=== PATIENT | female | born 1970 | race Caucasian/White ===

== ENCOUNTER → 2021-05-14 09:51 | Outpatient (CLI) | payer BC, SELFPAY ==
--- NOTE | 2021-05-14 | EMB_PTH ---
PATIENT: ALISA CORONEL LOC: [facility] U#:[id number] AGE/SX: 54/F ROOM: RE05/14/[address]: Dr. Guzman Bray MD : 1970 BED: DIS: SPEC #: [id number] RECD: 05/14/21 11:37 STATUS: PARTHA EYAL #: [id number] JENNIFER: 05/14/21 00:[address]: Guzman Bray DEPT: SURGICAL PATHOLOGY RECD BY: Dorita Cates Tissues: Endometrium, NOS Procedures: Surgery Specimen Level IV HEADER OPERATION: Endometrial biopsy PRE-OP DIAGNOSIS: DUB N92.5 TISSUE SUBMITTED: Endometrial biopsy MICROSCOPIC DIAGNOSIS Endometrial biopsy: Early secretory endometrium. VERONICA:kayla 05/15/2021 MICROSCOPIC DESCRIPTION Slides are reviewed. GROSS DESCRIPTION Received in fixative is one container labeled with the patient's name and designated endometrial biopsy. The specimen consists of multiple irregular fragments of lu hemorrhagic soft tissue that in aggregate measure 2 x 2 x 0.2 cm. The specimen is totally submitted in one cassette. / SJ:rg 05/14/21 TC:4 CPT: 16457
[2021-05-14 10:44] LABS: Hematocrit 40.4 % (37-47); Hemoglobin 12.6 g/dL (12.0-15.0); Mean Corp Hgb Conc 31.2 g/dL (32-36); Mean Corpuscular Volume 86.7 fL (81-99); Mean Platelet Vol. 10.9 fl (6.2-12.0); Platelet Count 339 K/mm3 (150-450); RBC Distribution Width CV 14.2 % (11.6-14.6); RBC Distribution Width SD 44.8 fl (35.1-43.9); Red Blood Count 4.66 M/mm3 (4.2-5.4); White Blood Count 8.9 K/mm3 (4.4-11.0)
[2021-05-14 11:30] LABS: Anion Gap 7 (5-15); BUN 11 mg/dL (7-18); BUN/Creat Ratio 15.1 RATIO (10-20); Chloride 108 mmol/L (98-107); Creatinine, Serum 0.73 mg/dL (0.55-1.02); EST Glomerular Filtration Rate 90 mL/min (>60); Est Glom Filt Rate - Afr Amer 109 mL/min (>60); Estradiol 112.1 pg/mL; Follicle Stimulating Hormone 3.6 mIU/mL; Glucose 93 mg/dL (74-106); Potassium 3.9 mmol/L (3.5-5.1); Prolactin 15.8 ng/mL; Sodium Level 140 mmol/L (136-145); T4 Free Direct 0.84 ng/dL (0.76-1.46)
[2021-05-17 10:27] LABS: HPV APTIMA, High Risk Negative (Negative)
== END ==
PROVIDERS: Visit Provider Obstetrics & Gynecology
DX: Z12.4 Encounter for screening for malignant neoplasm of cervix (principal); N92.5 Other specified irregular menstruation; N93.9 Abnormal uterine and vaginal bleeding, unspecified
CPT/HCPCS: 36415; 80048; 82670; 83001; 83002; 84146; 84439; 84443; 85027; 87624; 88175; 88305; G0145

== ENCOUNTER → 2021-05-27 15:51 | Outpatient (CLI) | payer BC, SELFPAY ==
--- NOTE | 2021-05-27 15:54 | BI_ITS ---
MAMMOGRAPHY - BILATERAL SCREENING REASON FOR EXAM: Female, 50 years old. Routine annual screening examination. PERTINENT HISTORY: Non-contributory. TECHNIQUE: Digital bilateral breast jena (3D mammographic acquisition) in the CC and MLO projections. 2-D mediolateral oblique (MLO) and craniocaudad (CC) views of both breasts were obtained. CAD: Full Field Digital Mammography with Computer Added Detection was performed. COMPARISON: None. Baseline examination. FINDINGS: Breast Composition: The breasts are heterogeneously dense, which may obscure small masses. There are no dominant masses or suspicious calcifications. There are small benign-appearing bilateral axillary lymph nodes. No other significant abnormalities are identified. BI/SCRN MAMM (CAD)W/EJNA BILAT IMPRESSION: Negative screening mammogram. Yearly followup mammogram recommended. (A) ASSESSMENT CATEGORY: BIRADS Category 2: Benign. A letter regarding these results will be sent to the patient by the facility within 30 days. Approximately 10% of breast cancers are not detected by mammography. A normal mammogram should not delay biopsy of a clinically suspicious abnormality. [id number] Electronically Signed: Jovan Mcdonnell MD at 8:25 EDT , Service support ,
== END ==
PROVIDERS: Referring Provider Obstetrics & Gynecology; Visit Provider Obstetrics & Gynecology
DX: Z12.31 Encounter for screening mammogram for malignant neoplasm of breast (principal)
CPT/HCPCS: 77063; 77067

== ENCOUNTER → 2021-08-19 08:24 | Outpatient (CLI) | payer BC, SELFPAY ==
[2021-08-19 11:00] LABS: Cholesterol 141 mg/dL (200); Free T3 2.5 pg/mL (2.18-3.98); High Density Lipoprotein 60 mg/dL; T4 Free Direct 1.12 ng/dL (0.76-1.46); Thyroid Stim Hormone (TSH) 3.99 uIU/mL (0.358-3.74); Triglycerides 79 mg/dL; Very Low Density Lipoprotein 16 mg/dL (5-40)
== END ==
PROVIDERS: PCP Family Medicine; Referring Provider Family Medicine; Visit Provider Family Medicine
DX: E03.8 Other specified hypothyroidism (principal); Z13.220 Encounter for screening for lipoid disorders
CPT/HCPCS: 36415; 80061; 84439; 84443; 84481

== ENCOUNTER 2021-10-22 08:52 | Outpatient (CLI) | payer BC, SELFPAY ==
[2021-10-22 10:31] LABS: T4 Free Direct 1.27 ng/dL (0.76-1.46); Thyroid Stim Hormone (TSH) 2.95 uIU/mL (0.358-3.74)
== END 2021-10-22 23:59 | disposition short-term general hospital (02) ==
LOC: MTLAB 08:53
PROVIDERS: PCP Family Medicine; Referring Provider Family Medicine; Visit Provider Family Medicine
DX: E03.9 Hypothyroidism, unspecified (principal)
CPT/HCPCS: 36415; 84439; 84443

== ENCOUNTER → 2022-04-22 | Outpatient (CLI) | payer OTHER, SELFPAY ==
[2022-04-22 10:27] LABS: Anion Gap 5 (5-15); BUN 16 mg/dL (7-18); BUN/Creat Ratio 20.3 RATIO (10-20); Calcium,Total 8.7 mg/dL (8.5-10.1); Chloride 108 mmol/L (98-107); Cholesterol 180 mg/dL (200); Creatinine, Serum 0.79 mg/dL (0.55-1.02); EST Glomerular Filtration Rate 82 mL/min (>60); Est Glom Filt Rate - Afr Amer 99 mL/min (>60); Glucose 90 mg/dL (74-106); High Density Lipoprotein 64 mg/dL; Potassium 3.9 mmol/L (3.5-5.1); Sodium Level 139 mmol/L (136-145); T4 Free Direct 1.19 ng/dL (0.76-1.46); Thyroid Stim Hormone (TSH) 4.69 uIU/mL (0.358-3.74); Triglycerides 130 mg/dL; Very Low Density Lipoprotein 26 mg/dL (5-40)
== END | disposition home or self-care (01) ==
LOC: MTLAB 08:53
PROVIDERS: PCP Family Medicine; Referring Provider Family Medicine; Visit Provider Family Medicine
DX: E03.9 Hypothyroidism, unspecified (principal); Z13.1 Encounter for screening for diabetes mellitus; Z13.220 Encounter for screening for lipoid disorders
CPT/HCPCS: 36415; 80048; 80061; 84439; 84443

== ENCOUNTER → 2022-09-08 | Outpatient (CLI) | payer OTHER, SELFPAY ==
--- NOTE | 2022-09-08 16:10 | BI_ITS ---
MAMMOGRAPHY - BILATERAL SCREENING REASON FOR EXAM: Female, 51 years old. Routine annual screening examination. PERTINENT HISTORY: Non-contributory. TECHNIQUE: Digital bilateral breast jena (3D mammographic acquisition) in the CC and MLO projections. 2-D mediolateral oblique (MLO) and craniocaudad (CC) views of both breasts were obtained. CAD: Full Field Digital Mammography with Computer Added Detection was performed. COMPARISON: 05/27/2021. FINDINGS: Breast Composition: The breasts are heterogeneously dense, which may obscure small masses. There are no dominant masses or suspicious calcifications. Stable benign-appearing small bilateral axillary lymph nodes. No other significant abnormalities are identified. There has been no significant change since the prior study. BI/SCRN MAMM (CAD)W/JENA BILAT IMPRESSION: Stable bilateral screening mammogram. Yearly follow-up mammogram recommended. (A) ASSESSMENT CATEGORY: BIRADS Category 2: Benign. A letter regarding these results will be sent to the patient by the facility within 30 days. Approximately 10% of breast cancers are not detected by mammography. A normal mammogram should not delay biopsy of a clinically suspicious abnormality. Electronically Signed: Arron Vaca, at 16:29 EST ,
== END | disposition home or self-care (01) ==
LOC: OPBI 16:08
PROVIDERS: PCP Family Medicine; Visit Provider Family Medicine
DX: Z12.31 Encounter for screening mammogram for malignant neoplasm of breast (principal)
CPT/HCPCS: 77063; 77067

== ENCOUNTER → 2022-10-15 | Outpatient (CLI) | payer OTHER, SELFPAY ==
[2022-10-15 10:53] LABS: Thyroid Stim Hormone (TSH) 2.14 uIU/mL (0.358-3.74)
== END | disposition home or self-care (01) ==
LOC: MTLAB 08:45
PROVIDERS: PCP Family Medicine; Referring Provider Family Medicine; Visit Provider Family Medicine
DX: E03.9 Hypothyroidism, unspecified (principal)
CPT/HCPCS: 36415; 84439; 84443

== ENCOUNTER 2022-12-22 06:49 | Day surgery (SDC) | payer OTHER, SELFPAY ==
--- NOTE | 2022-12-22 07:09 | HP.PCM_ITS ---
HPI - General General Date of Admission: 12/22/22 HPI Narrative ALISA CORONEL, is a 52 F who presents for screening colonoscopy. Patient never had previous colonoscopy. Patient denies any family history of colon cancer. Patient has bowel moods daily denies any blood. Patient denies any chronic abdominal pain/nausea/vomiting. Patient occasionally has reflux with tomato sauce products and takes Tums for that. [facility] Medical History (Updated 12/17/22 @ 14:02 by Dayan Kwan) Heartburn Hypothyroid Non-smoker Thyroid disease Wears contact lenses Home Medications levothyroxine 75 mcg capsule 88 mcg PO DAILY 09/08/22 [History Last Taken Unknown] Allergy/AdvReac Type Severity Reaction Status Date / Time No Known Allergies Allergy Verified 12/22/22 07:09 Family History (Updated 09/08/22 @ 11:13 by Shanta Vazquez) Mother Uterine cancer Hypertension Kidney disease Father Hypertension Surgical History (Updated 12/17/22 @ 14:02 by Dayan Kwan) No significant past surgical history Social History (Updated 09/08/22 @ 11:14 by Shanta Vazquez) household members: spouse current occupational status: employed 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 Smoking Status: Never smoker alcohol intake: never Past Medical/Surgical History Planned Operation Planned Operative Procedure/s: COLONOSCOPY Previous Hospitalizations/Surgeries HX Hospitalizations: No Any Problems With Anesthesia: No You/Your Family Experience Fever (Hyperthermia) With Anes: No Cholinesterase deficiency: No Cardiovascular Hx Hypertension: No Respiratory Hx Sleep Apnea: No Hx Respiratory Tract Infection/Cold (presently): No Do You Snore Loudly (louder than talking or can be heard): No Do You Often Feel Tired/ Fatigued/ Sleepy Dring Daytime?: No Has Anyone Observed You Stop Breathing During Sleep?: No Result (for STOP score): Negative Smoking Status: Never smoker Neurological Does patient have nerve stimulator: No Reproduction : No Allergies No Known Allergies Allergy (Verified 12/22/22 07:09) Discharge Is Pt Admitted From a [facility], or a Jail: No Who Could Help: -TRUPTI After D/C, Where Do you Plan to Go: Return Home Physical Exam Const alert, oriented x3 and no apparent distress HEENT normocephalic and head/scalp atraumatic Resp normal respiratory effort Cardio regular rate GI soft to palpation and non-tender; Negative for non-distended Palpation: Negative for guarding Extremity no clubbing, cyanosis or edema Neuro CN's II-XII intact bilaterally Psych mental status grossly normal Assessment & Plan Assessment/Plan (1) Encounter for screening for malignant neoplasm of colon: Surgery Risks - Colonoscopy Risks Include but are not Limited To: Risks include but are not limited to: Bleeding, perforation requiring further surgery, inability to complete colonoscopy requiring barium enema.
[2022-12-22 07:21] VITALS: BP 142/95; PULSE 90; RESP 17; TEMP 36.7; O2SAT 95; BMI 41.5
[2022-12-22 07:21] LABS: Internal QC Validated? YES +Cl - CLEAR BKGD; Pregnancy, Urine Negative Negative
[2022-12-22] MEDS: Lactated Ringers 1,000 ML 15 ML IV (07:21)
[2022-12-22 08:55] VITALS: BP 115/73; BP 142/95; PULSE 71; RESP 17; TEMP 36.5; O2SAT 95
[2022-12-22 09:00] VITALS: BP 142/95; BP 99/62; PULSE 65; RESP 16; O2SAT 95
[2022-12-22 09:05] VITALS: BP 142/95; BP 99/70; PULSE 80; RESP 16; O2SAT 98
[2022-12-22 09:10] VITALS: BP 107/71; BP 142/95; PULSE 63; RESP 16; TEMP 36.4; O2SAT 100
[2022-12-22 09:19] VITALS: BP 142/95
--- NOTE | 2022-12-22 09:47 | OP.COLON_ITS ---
Patient Name: Agustina Moreno Procedure Date: 12/22/2022 8:27 AM Date of : 1970 Age: 52 Procedure: Colonoscopy Indications: Screening for colorectal malignant neoplasm Providers: Ayesha Landry MD Referring MD: Ayesha aLndry MD Medicines: Monitored Anesthesia Care Patient Profile: This is a 52 year old female. Last Colonoscopy: none. The patient's first colonoscopy is today. Complications: No immediate complications. Procedure: Pre-Anesthesia Assessment: - Prior to the procedure, a History and Physical was performed, and patient medications and allergies were reviewed. The patient's tolerance of previous anesthesia was also reviewed. The risks and benefits of the procedure and the sedation options and risks were discussed with the patient. All questions were answered, and informed consent was obtained. Prior Anticoagulants: The patient has taken no previous anticoagulant or antiplatelet agents. ASA Grade Assessment: Per anesthesia. After reviewing the risks and benefits, the patient was deemed in satisfactory condition to undergo the procedure. After I obtained informed consent, the scope was passed under direct vision. Throughout the procedure, the patient's blood pressure, pulse, and oxygen saturations were monitored continuously. The pediatric colonoscope was introduced through the anus and advanced to the cecum, identified by appendiceal orifice and ileocecal valve. The colonoscopy was performed without difficulty. The patient tolerated the procedure well. The quality of the bowel preparation was good. Scope In: 8:30:20 AM Scope Withdrawal Time 0 hours 6 minutes 6 seconds Scope Out: 8:49:47 AM Total Procedure Duration Time 0 hours 19 minutes 27 seconds Findings: The perianal and digital rectal examinations were normal. The entire examined colon appeared normal on direct and retroflexion views. Impression: - The entire examined colon is normal on direct and retroflexion views. - No specimens collected. Recommendation: - Discharge patient to home. - Resume previous diet. - Continue present medications. - Repeat colonoscopy in 10 years for screening purposes. Procedure Code(s): --- Professional --- G0121, PT, Colorectal cancer screening; colonoscopy on individual not meeting criteria for high risk Diagnosis Code(s): --- Professional --- Z12.11, Encounter for screening for malignant neoplasm of colon CPT copyright 2017 [employer]. All rights reserved. The codes documented in this report are preliminary and upon nail professional review may be revised to meet current compliance requirements. MD Ayesha Zhou MD 12/22/2022 9:46:43 AM This report has been signed electronically. Number of Addenda: 0 Note Initiated On: 12/22/2022 8:27 AM
--- NOTE | 2022-12-22 09:48 | OP.CCLET_ITS ---
12/22/2022 Abran Baltazar [address] [place] [address] Re : Colonoscopy procedure for Agustina Moreno Dear Dr. Baltazar This procedure was performed on Thursday, December 22, 2022. My impressions and recommendations are as follows: Impressions : - The entire examined colon is normal on direct and retroflexion views. - No specimens collected. Recommendations : - Discharge patient to home. - Resume previous diet. - Continue present medications. - Repeat colonoscopy in 10 years for screening purposes. My findings are described in the full procedure note, which is enclosed. If I can be of further assistance, please feel free to contact me at Doctor phone number(s): , Work: . Sincerely, MD Ayesha Zhou MD 12/22/2022 9:46:43 AM This report has been signed electronically.
== END 2022-12-22 09:31 | disposition home or self-care (01) ==
LOC: EN 06:54 → AC 06:55
PROVIDERS: Anesthesiology; PCP Family Medicine; Referring Provider Family Medicine; Visit Provider Surgery
PROC: 0DJD8ZZ Inspection of Lower Intestinal Tract, Via Natural or Artificial Opening Endoscopic (ICD-10-PCS; CPT 45378; principal; 2022-12-22 08:10)
DX: Z12.11 Encounter for screening for malignant neoplasm of colon (principal); E03.9 Hypothyroidism, unspecified
CPT/HCPCS: 45378; 81025; J7120; J2405

== ENCOUNTER → 2023-04-28 | Outpatient (CLI) | payer OTHER, SELFPAY ==
[2023-04-28 11:31] LABS: T4 Free Direct 1.33 ng/dL (0.76-1.46); Thyroid Stim Hormone (TSH) 3.79 uIU/mL (0.358-3.74)
== END | disposition home or self-care (01) ==
LOC: MTLAB 08:52
PROVIDERS: PCP Family Medicine; Referring Provider Family Medicine; Visit Provider Family Medicine
DX: E03.9 Hypothyroidism, unspecified (principal)
CPT/HCPCS: 36415; 84439; 84443

== ENCOUNTER 2023-06-08 09:00 | Day surgery (SDC) | payer OTHER, SELFPAY ==
[2023-06-02 13:21] LABS: Hematocrit 42.9 % (37-47); Hemoglobin 13.5 g/dL (12.0-15.0); Mean Corp Hgb Conc 31.5 g/dL (32-36); Mean Corpuscular Hgb 27.7 pg (27.0-32.0); Mean Corpuscular Volume 87.9 fL (81-99); Mean Platelet Vol. 11.4 fl (6.2-12.0); Platelet Count 343 K/mm3 (150-450); RBC Distribution Width CV 14.7 % (11.6-14.6); RBC Distribution Width SD 47.4 fl (35.1-43.9); Red Blood Count 4.88 M/mm3 (4.2-5.4); White Blood Count 8.5 K/mm3 (4.4-11.0)
[2023-06-08] VITALS (8 sets, daily range): BP systolic 124–135; BP diastolic 80–85; PULSE 62–84; RESP 16–18; TEMP 36.4–37.1; O2SAT 94–100; BMI 41.8
[2023-06-08] MEDS: Lactated Ringers 1,000 ML 15 ML IV (09:41)
[2023-06-08 09:49] LABS: Internal QC Validated? YES +Cl - CLEAR BKGD; Pregnancy, Urine Negative Negative
--- NOTE | 2023-06-08 10:23 | PCM.HP.BLA ---
History and Physical Date of Admission: 06/08/23 Chief complaint: Abnormal uterine bleeding History of present illness: 52-year-old with abnormal uterine bleeding elects for hysteroscopy, dilation curettage. No medical changes since last seen. All questions answered and consent signed. Obstetric history: with a history of 2 vaginal deliveries Past medical history: Hypothyroid Medications: Synthroid, Ortho Micronor Allergies: No known drug allergies Past surgical history: None Family history: Denies history DVT or PE Social history: Denies smoking, alcohol use, drug use Review of systems: Besides above pertinent positives a full review of systems was performed and found to be negative Physical exam: Vitals: Blood pressure 135/84 pulse 84 respiratory rate 16 temperature 98.8 ?F SPO2 99% on room air General: Normal-appearing no acute distress HEENT: Normocephalic/atraumatic no cervical lymphadenopathy Cardiac/respiratory: No use accessory muscles, nonlabored breathing Abdomen: Soft, nontender, nondistended Extremities: No peripheral edema normal peripheral pulses Psych: Normal affect and remainder nonpressured speech Labs: Urine test negative Assessment and plan: 52-year-old with abnormal uterine bleeding elects for hysteroscopy, dilation curettage. Patient understands risk of the procedure include but are not limited to visceral or vascular injury, prolonged hospitalization, blood loss need for transfusion, reoperation. Patient state understanding wish to proceed. All questions were answered and consent was signed
--- NOTE | 2023-06-08 10:45 | EMB_PTH ---
PATIENT: ALISA CORONEL LOC: [facility] [place] U#:[id number] AGE/SX: 52/F ROOM: RE06/08/[address]: Dr. Guzman Bray MD : 1970 BED: DIS: 06/08/2023 SPEC #: [id number] RECD: 06/08/23 12:59 STATUS: PARTHA BIRCH #: [id number] JENNIFER: 06/08/23 10:[address]: Guzman Bray DEPT: SURGICAL PATHOLOGY RECD BY: Dorita Cates ENTERED: 06/08/23 13:27 SP TYPE: ENDOM BX/C ERIK DR: Dr. Clive Baltazar MD Tissues: Endometrium, NOS Procedures: Surgery Specimen Level IV HEADER OPERATION: Hysteroscopy, dilation and curettage PRE-OP DIAGNOSIS: Abnormal uterine bleeding TISSUE SUBMITTED: Endometrial curettings MICROSCOPIC DIAGNOSIS Endometrium, curettings: Polypoid fragment of weakly proliferative to inactive endometrium with simple cystic hyperplasia without atypia. Mild chronic endometritis. AM:kayla 06/09/2023 MICROSCOPIC DESCRIPTION Slides are reviewed. GROSS DESCRIPTION Received in fixative is one container labeled with the patient's name and designated endometrial curettings. The specimen consists of multiple irregular and mucoid fragments of red-lu soft tissue that in aggregate measure 2.2 x 1.7 x 0.1 cm. The specimen is totally submitted in one cassette. / AM:kayla 06/08/2023 TC:5 CPT: 31753
--- NOTE | 2023-06-08 12:45 | DCINST_ITS ---
Discharge Instructions Diet Discharge Diet: No restrictions Activity Discharge Activity: Return to Normal Activity, May Drive and May Shower May resume sexual activity in: 6-8 weeks Weight Bearing Status: Weight bearing as tolerated Dressing / Incision Call your doctor if your incision/area has: Continuous Slow Oozing and Foul Smelling Discharge Call your doctor if you observe: Fever of 101 or Higher, Shortness of breath and Chest pain Follow Up Care Please Follow Up With: Guzman Bray MD When: 2 weeks postoperatively Test Results: Test results from this visit will be discussed in further detail at your follow- up appointment, if applicable. Discharge Plan Admission Attending Provider: Guzman Bray Primary Care Provider: Abran Baltazar Discharge Orders/Prescriptions Prescriptions: No Action levothyroxine 75 mcg capsule 88 mcg PO DAILY norethindrone (contraceptive) 0.35 mg tablet 0.35 mg PO DAILY Patient Comments: TAKE 1 TABLET BY MOUTH EVERY DAY Referrals / Follow Up: Abran Baltazar MD [Primary Care Provider] - Disposition Disposition (needs filled in before D/C Order can be placed): Home, Self Care
--- NOTE | 2023-06-08 12:45 | PCM.OPRPT ---
Report of Operation Date of Procedure: 06/08/23 Pre-Operative Diagnosis: Abnormal uterine bleeding Post-Operative Diagnosis: Abnormal uterine bleeding Surgery/Procedure Performed:: Hysteroscopy, dilation curettage Description of Surgical Findings:: Surgeon: Guzman Bray MD Anesthesia: MAC EBL: 5 cc Urine output: 50 cc IV fluids: 500 cc Complications: None Specimen: Endometrial curettings Findings: Hysteroscopy with no pathology noted. Consent: Patient with abnormal uterine bleeding elects for hysteroscopy, dilation curettage. Patient understands risk of the procedure include but are not limited to visceral or vascular injury, prolonged hospitalization, blood loss need for transfusion, reoperation. Patient state understanding and wished to proceed. All questions were answered and consent was signed. Procedure: Patient was brought back to the OR where MAC anesthesia was found to be adequate. Patient was prepared and draped in a dorsolithotomy position with yellowfin stirrups. A weighted speculum is placed in the posterior aspect of the vagina and cervical dilators were used dilate the cervix. Hysteroscope was inserted and above findings were noted. Sharp endometrial curettage was performed and all quadrants and sent to pathology. Good hemostasis was noted. All counts were correct x2. Patient tolerated the procedure well and was brought to recovery in a stable condition.
== END 2023-06-08 14:02 | disposition home or self-care (01) ==
LOC: SDC 09:03 → AC 09:09
PROVIDERS: Anesthesiology; PCP Family Medicine; Referring Provider Obstetrics & Gynecology; Visit Provider Obstetrics & Gynecology
PROC: 0UDB8ZZ Extraction of Endometrium, Via Natural or Artificial Opening Endoscopic (ICD-10-PCS; CPT 58558; principal; 2023-06-08 10:35)
DX: N85.01 Benign endometrial hyperplasia (principal); N93.9 Abnormal uterine and vaginal bleeding, unspecified; E03.9 Hypothyroidism, unspecified; Z79.890 Hormone replacement therapy
CPT/HCPCS: 58558; 00952; 36415; 81025; 85027; 86850; 86900; 86901; 88305; J7120; J2405

== ENCOUNTER → 2023-09-09 | Outpatient (CLI) | payer OTHER, SELFPAY ==
--- NOTE | 2023-09-09 08:38 | BI_ITS ---
MAMMOGRAPHY - BILATERAL SCREENING REASON FOR EXAM: Female, 52 years old. Routine annual screening examination. PERTINENT HISTORY: Non-contributory. TECHNIQUE: Digital bilateral breast jena (3D mammographic acquisition) in the CC and MLO projections. 2-D mediolateral oblique (MLO) and craniocaudad (CC) views of both breasts were obtained. CAD: Full Field Digital Mammography with Computer Added Detection was performed. COMPARISON: Comparison is made with prior study September 08, 2022 and May 27, 2021. FINDINGS: Breast Composition: The breasts are heterogeneously dense, which may obscure small masses. There are no dominant masses or suspicious calcifications. Stable benign-appearing right axillary lymph nodes. No other significant abnormalities are identified. There has been no significant change since the prior study. BI/SCRN MAMM (CAD)W/JENA BILAT IMPRESSION: Stable bilateral screening mammogram. Yearly follow-up mammogram recommended. (A) ASSESSMENT CATEGORY: BIRADS Category 2: Benign. A letter regarding these results will be sent to the patient by the facility within 30 days. Approximately 10% of breast cancers are not detected by mammography. A normal mammogram should not delay biopsy of a clinically suspicious abnormality. [id number] Electronically Signed: Jovan Mcdonnell MD at 14:27 EST ,
== END | disposition home or self-care (01) ==
LOC: OPBI 08:36
PROVIDERS: PCP Family Medicine; Referring Provider Family Medicine; Visit Provider Family Medicine
DX: Z12.31 Encounter for screening mammogram for malignant neoplasm of breast (principal)
CPT/HCPCS: 77063; 77067

== ENCOUNTER → 2023-11-03 | Outpatient (CLI) | payer OTHER, SELFPAY ==
--- OUTSIDE RECORDS SUMMARY | 2023-11-03 09:29 | XMS RPT_ITS | CCD ---
Author Name Unknown Address [address] [place] [address] [id number] [place] [address] Organization [facility] Care Team Providers Care Salesperson Shoes Name Role Phone Unavailable Primary Care Provider JANICE Neil Attending Unavailable Medications Current Medications Medication Drug Class(es) Dates Sig (Normalized) Sig (Original) norethindrone acetate 5 mg oral tablet (1 source) Start: 08-20-2023 End: 02-16-2024 take 1 tablet by mouth once daily norethindrone (AYGESTIN) 5 mg tablet Take 1 tablet by mouth once daily. 90 tablet 1 08/20/2023 02/16/2024 Active Completed/Discontinued Medications Medication Drug Class(es) Dates Sig (Normalized) Sig (Original) levothyroxine sodium 0.088 mg oral tablet (1 source) l-Thyroxine take 1 tablet by mouth once daily before breakfast levothyroxine (SYNTHROID) 88 mcg tablet Take 88 mcg by mouth daily before breakfast. 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 Work Phone: OB/Gynecology Plan of Treatment Date Care Activity Detail Author Start: 04-29-2032 Urine microalbumin profile DTa P,Tdap,Td Vaccine (2 - Td or Tdap) [facility] Start: 05-14-2026 HPV Testing HPV Testing [facility] Start: 05-14-2026 Pap Testing Pap Testing [facility] Start: 06-19-2023 Covid-19 Vaccine ( season) Covid-19 Vaccine () [facility] Start: 06-19-2023 Influenza vaccination Influenza Vacc ine (#1) [facility] Start: 10-19-2022 Depression Assessment Depression Ass essment [facility] Start: 05-27-2022 Mammography Mammogram Screening [facility] Start: 2015 Cologuard (FIT-DNA) Cologuard (FIT-D NA) [facility] Start: 2015 Colonoscopy Colonoscopy [facility] Start: 2015 Colorectal Cancer Screening Colorectal Cancer Screening [facility] Start: [address] Colonography [facility] Start: 2015 Diabetes Screening Diabetes Screenin g [facility] Start: 2015 Fecal Occult Blood Fecal Occult Bloo d [facility] Start: 2015 Lipid 1996 panel - S dev or Plasma Lipid Screening [facility] Start: 2015 Sigmoidoscopy Sigmoidoscopy [facility] Start: 1988 Hepatitis C Screening Hepatitis C Sc reening [facility] Start: 1988 HIV Screening HIV Screening [facility] Start: 1970 Hepatitis B Vaccine (1 of 3 - 3-dose series) Hepatitis B Vaccine (1 of 3 - 3-dose series) [facility] Payers Date Payer Category Payer Private Health Insurance [employer] A ETNA POS [id number] 2021-Present [phone] [address] [place] [address] POS [id number] 2021 Private Health Insurance [id number] Social History Date Type Detail Facility Start: 08-20-2023 Tobacco smoking stat us SDIS Never smoked tobacco [facility] Start: 08-20-2023 Tobacco use and exposure Smoke less tobacco non-user [facility] Start: 08-20-2023 Alcohol intake Lifetime non-d enmanuel (finding) [facility] Start: 08-20-2023 History of Social function [facility] Start: 08-20-2023 Tobacco use panel [facility] National Score (1-10 0), lower number is lower risk 83 [facility] Start: 1970 Sex Assigned At Not on file [facility] Note 09-01-2023 Telephone Encounter - Emily Salgado RN - 09/01/2023 4:28 PM ESTTelephone Encounter - Latonya Grant RN - 09/01/2023 2:00 PM ESTTelephone Encounter - Janice Andres APRN.CNP - 09/01/2023 1:54 PM EST Note Date & Type Note Facility 09-01-2023 Miscellaneous Notes Formattin g of this note might be different from the original. Patient notified. Emily Salgado RN Left message for patient to return phone call She can increase the 2 pills daily. Janice Andres APRN.ANNE Pt calling and stated that she was started on Norethindrone on 08/20/23. She had bleeding on the first week of the medication. Bleeding stopped on 08/28/23 until yesterday 08/31/23. She reports she is having spotting now that is pink in color with mild cramping. Pt wanting to know how to proceed from this point. Please advise. Laura Wills LPN documented in this encounter [facility] Progress note 08-20-2023 Note Date & Type Note Facility 08-20-2023 Note HNO ID: [id number] Author: Janice Andres APRN.CNP Service: ? Author Type: Nurse Practitioner Type: Progress Notes Filed: 08/20/2023 12:41 PM Note Text: Overhead Door Technician offered: Patient declines. Agustina Moreno is a 52 year old female who presents to est care, transfer from [facility]. HPI: Pt had a Hysteroscopy in May 2023 and has been taking Megace since. For the month of Jul she has had daily light bleeding. Results:Polypoid fragment of weakly proliferative to inactive endometrium with simple hyperplasia without endometritis, mild chronic endometritis. 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 done at [facility] PAST SURGICAL HISTORY OF 06/08/2023 hysteroscopy DANDC at [facility] per Dr Bray FAMILY HISTORY Problem Relation Age of Onset other (neoplasm of uterus) Mother Kidney Disease Mother Hypertension Mother Mental illness Mother Prostate Cancer Father Hypertension Father other (muscular disorder) Father Thyroid Sister Depression Sister Suicide / Suicidal Behaviors Brother Depression Brother Heart disease Maternal Grandfather Stroke Maternal Grandfather Heart Attack Paternal Grandfather Social History Tobacco Use Smoking status: Never Smokeless tobacco: Never Vaping Use Vaping Use: Never used Substance Use Topics Alcohol use: Never Drug use: Never Current Outpatient Medications Medication Sig levothyroxine (SYNTHROID) 88 mcg tablet Take 88 mcg by mouth daily before breakfast. megestrol (MEGACE) 400 mg/10 mL (40 mg/mL) suspension Take 40 mg by mouth once daily. No current facility-administered medications for this visit. Allergies As of Date: 08/20/2023 (No Known Allergies) Fully Assessed 08/20/2023 REVIEW OF SYSTEMS Abdomen: No bloating, early satiety, indigestion, or increased flatulence. No abdominal pain, nausea, vomiting, diarrhea, or constipation. +cramping Expanded ROS: N/A Allergies and current medication updated:Yes EXAM: BP 134/68 Ht 5' 4 (1.63m) Wt 242 lb 9.6 oz (110.0kg) LMP 05/21/2023 BMI 41.62 kg/(m2). GENERAL: pleasant, female in no apparent distress HEENT: Normocephalic, atraumatic, mucus membranes moist, and no lesions CHEST: Normal inspiratory effort NEURO: alert and oriented x3,exam grossly non-focal EXTREMITIES: normal ASSESSMENT/PLAN: 1. Endometrial hyperplasia without atypia - ICD9: [id number], ICD10: N85.00 - ENDOMETRIAL BIOPSY Discussed Mirena IUD for management of the hyperplasia, pt would like to avoid that option. Aygestin 5 mg daily ordered, stop the Megace Schedule for EMB in Nov Janice Andres APRN.ANNE Medical Decision Making: Problems: Low: Stable chronic illness Risk: Low: Low risk from testing/treatment Moderate: Drug management Medical Decision Making Level: 3 - Low [facility] Summary Purpose Family History No Family History Records Found Advance Directives No Advanced Directives Records Found Additional Source Comments Source Comments (unrecognize d section and content) In the event this informatio n is protected by the Federal Confidentiality of Alcohol and Drug Abuse Patient Records regulations: The Federal rules restrict any use of the information to criminally investigate or prosecute any alcohol or drug abuse patient.[facility] Reason for Visit (unrecogniz ed section and content) INFORMATION SOURCE (unrecogn ized section and content) FOR RECORDS PERTAINING TO PATIENTS WHO ARE OR HAVE BEEN ENROLLED IN A CHEMICAL DEPENDENCY/SUBSTANCEABUSE PROGRAM, SOME INFORMATION MAY BE OMITTED. This clinical summary was aggregated from multiple sources. Caution should be exercised in using it in the provision of clinical care. This summary normalizes information from multiple sources, and as a consequence, information in this document may materially change the coding, format and clinical context of patient data. In addition, data may be omitted in some cases. CLINICAL DECISIONS SHOULD BE BASED ON THE PRIMARY CLINICAL RECORDS. [facility]. provides no warranty or guarantee of the accuracy or completeness of information in this document.
[2023-11-03 10:39] LABS: Free T3 2.5 pg/mL (2.18-3.98); T4 Free Direct 1.34 ng/dL (0.76-1.46); Thyroid Stim Hormone (TSH) 2.83 uIU/mL (0.358-3.74)
== END | disposition home or self-care (01) ==
LOC: MTLAB 09:01
PROVIDERS: PCP Family Medicine; Referring Provider Family Medicine; Visit Provider Family Medicine
DX: E03.9 Hypothyroidism, unspecified (principal)
CPT/HCPCS: 36415; 84439; 84443; 84481

== ENCOUNTER 2024-02-11 07:54 | Inpatient (IN) | payer OTHER, SELFPAY ==
--- NOTE | 2024-02-02 08:52 | EKG12_ITS ---
Test Reason : PREOP Blood Pressure : / mmHG Vent. Rate : 081 BPM Atrial Rate : 081 BPM P-R Int : 138 ms QRS Dur : 082 ms QT Int : 362 ms P-R-T Axes : 063 048 007 degrees QTc Int : 420 ms Normal sinus rhythm Nonspecific T wave abnormality Abnormal ECG Confirmed by SILVA LADD, ANTHONY ([id number]), photograph editor ANDREZ POWELL ([id number]) on 02/03/2024 6:49:12 AM Referred By: BIJAN GREENFIELD Confirmed By:ANTHONY ASCENCIO MD
[2024-02-02 10:21] LABS: Hemoglobin 14.7 g/dL (12.0-15.0); Mean Corpuscular Hgb 27.8 pg (27.0-32.0); Mean Corpuscular Volume 87.1 fL (81-99); Mean Platelet Vol. 11.3 fl (6.2-12.0); Platelet Count 385 K/mm3 (150-450); RBC Distribution Width CV 15.6 % (11.6-14.6); RBC Distribution Width SD 49.2 fl (35.1-43.9); Red Blood Count 5.28 M/mm3 (4.2-5.4); White Blood Count 8.7 K/mm3 (4.4-11.0)
[2024-02-02 10:47] LABS: Anion Gap 4 (5-15); BUN 11 mg/dL (7-18); BUN/Creat Ratio 10.3 RATIO (10-20); Calcium,Total 8.7 mg/dL (8.5-10.1); Chloride 109 mmol/L (98-107); Creatinine, Serum 1.07 mg/dL (0.55-1.02); EST Glomerular Filtration Rate 57 mL/min (>60); Est Glom Filt Rate - Afr Amer 69 mL/min (>60); Glucose 90 mg/dL (74-106); Magnesium 2.1 mg/dL (1.6-2.6); Potassium 3.7 mmol/L (3.5-5.1); Sodium Level 141 mmol/L (136-145)
[2024-02-02 11:00] LABS: Thyroid Stim Hormone (TSH) 4.68 uIU/mL (0.358-3.74)
--- NOTE | 2024-02-04 13:10 | PCM.HP.BLA ---
History and Physical Date of Admission: 02/11/24 Pre-Op History and Physical ? HPI: The patient is a 53 year old female presenting for discussion regarding surgical intervention for AUB, fibroid uterus and endometrial hyperplasia. Pt currently on Aygestin to control bleeding- has h/o endometrial hyperplasia and large fibroids. Pt feeling pelvic pressure and pain- and has consistent bleeding. Pt would like surgical intervention. Pt declines consults with MIGS and understands there is small risk of malignancy with final pathology which could result in need for secondary surgery. ? pre-operative visit. She is scheduled for ALICE with BSO, for AUB, fibroid uterus, Endometrial hyperplasia on 02/11/24. Procedure discussed along with risks, benefits and complications. Other alternatives discussed for management. Consent form signed? Yes. ? ? PAST MEDICAL HISTORY PAST MEDICAL HISTORY Diagnosis Date ? Abnormal uterine bleeding (AUB) ? ? Hyperplasia of endometrium determined by biopsy ? ? Hypothyroidism ? ? ? PAST SURGICAL HISTORY PAST SURGICAL HISTORY Procedure Laterality Date ? COLONOSCOPY SCREENING ? 12/22/2022 ? WNL repeat in 10Yrs. done at [facility] ? PAST SURGICAL HISTORY OF ? 06/08/2023 ? hysteroscopy D&C at [facility] per Dr Bray ? ? ? CURRENT MEDICATIONS Current Outpatient Medications Medication Sig Dispense Refill ? norethindrone (AYGESTIN) 5 mg tablet Take 2 tablets by mouth once daily. 180 tablet 1 ? levothyroxine (SYNTHROID) 88 mcg tablet Take 88 mcg by mouth daily before breakfast. ? ? ? No current facility-administered medications for this visit. ? ? ALLERGIES: Patient has no known allergies. ? PERSONAL HISTORY: SOCIAL HISTORY Social History ? Tobacco Use ? Smoking status: Never ? Smokeless tobacco: Never Vaping Use ? Vaping Use: Never used Substance Use Topics ? Alcohol use: Never ? Drug use: Never ? FAMILY HISTORY: FAMILY HISTORY FAMILY HISTORY Problem Relation Age of Onset ? other (neoplasm of uterus) Mother ? ? Kidney Disease Mother ? ? Hypertension Mother ? ? Mental illness Mother ? ? Prostate Cancer Father ? ? Hypertension Father ? ? other (muscular disorder) Father ? ? Thyroid Sister ? ? Depression Sister ? ? Suicide / Suicidal Behaviors Brother ? ? Depression Brother ? ? Heart disease Maternal Grandfather ? ? Stroke Maternal Grandfather ? ? Heart Attack Paternal Grandfather ? ? ? REVIEW OF SYMPTOMS: negative except as noted above PHYSICAL EXAMINATION: ? VITALS: Blood pressure 138/86, height 5' 4 (1.626 m), weight 249 lb (112.9 kg), last menstrual period 05/21/2023. ? GENERAL: The patient is well nourished, well hydrated in no acute distress. , The patient is oriented to time, place, and person. NECK: full range of motion LUNGS: Clear to auscultation bilaterally. no wheezes, rhonchi or rales HEART: Regular rate and rhythm, Normal heart sounds, and No murmurs or gallops ? IMPRESSION: 53yo female with large fibroid uterus, endometrial hyperplasia on progesterone, AUB ? PLAN: ALICE, BSO ? Pt has been counseled on risks/benefits and alternatives of surgery including but not limited to anesthesia, bleeding, infection, injury to pelvic structures including bowel, bladder, ureters and vessels. Pt wishes to proceed with surgery at this time. Pt counseled on retention of ovaries- declines and would like removal at time of surgery. We reviewed surgical menopause and implications for HRT if desired. Risk of blood transfusion reviewed. ? Pre and post op instructions reviewed ? I have reviewed and updated past medical and surgical history, medications and allergies Mitzi Diamond MD Office Visit on 01/26/2024 Office Visit on 01/26/2024 Note shared with patient Additional Documentation Vitals: BP 138/86 Ht 5' 4 (1.626 m) Wt 249 lb (112.9 kg) LMP 05/21/2023 BMI 42.74 kg/m? BSA 2.26 m? Flowsheets: Patient-Reported Data, [facility] PDMP [employer] SCORES, Vital Signs Encounter Info: Billing Info, History, Allergies, Detailed Report
[2024-02-11] VITALS (15 sets, daily range): BP systolic 114–154; BP diastolic 66–91; PULSE 71–99; RESP 16–18; TEMP 36.3–37.4; O2SAT 94–100; BMI 42.6
[2024-02-11 08:30] LABS: Internal QC Validated? YES +Cl - CLEAR BKGD; Record Kit Lot#,Urine Preg HCG0000718089
[2024-02-11 08:34] LABS: Pregnancy, Urine Negative Negative
[2024-02-11] MEDS: dexAMETHasone 4 MG/ML Vial 8 MG IV (08:39)
[2024-02-11] MEDS: Magnesium 1 GM over 15 mins IV (08:43)
[2024-02-11] MEDS: Phenazopyridine 95 MG Tablet 190 MG PO (08:45)
[2024-02-11] MEDS: Acetaminophen 500 MG Tablet 1000 MG PO ×3 (08:46→23:48)
[2024-02-11] MEDS: Celecoxib 200 MG Capsule 400 MG PO (08:46)
[2024-02-11] MEDS: Enoxaparin 40 MG/0.4 ML Syringe SC (08:47)
[2024-02-11] MEDS: Gabapentin 600 MG Tablet PO (08:47)
[2024-02-11] MEDS: Scopolamine 1mg/72hr Patch 1 PATCH TD (08:48)
[2024-02-11] MEDS: Lactated Ringers 1,000 ML 40 ML IV (08:49)
[2024-02-11 09:27] LABS: Bedside Glucose 120 mg/dL (74-106)
--- NOTE | 2024-02-11 10:10 | HYST_PTH ---
PATIENT: ALISA CORONEL LOC: MS3 U#:[id number] AGE/SX: 53/F ROOM: [facility] RE02/11/[address]: Dr. Mitzi Blanco, MDDOB: 1970 BED: 1 DIS: 02/12/2024 SPEC #: [id number] RECD: 02/11/24 13:34 STATUS: PARTHA BIRCH #: [id number] JENNIFER: 02/11/24 10:[address]: Mitzi Blanco DEPT: SURGICAL PATHOLOGY RECD BY: Santos Mariscal ENTERED: 02/11/24 14:01 SP TYPE: HYSTERECT OTHR DR: Dr. Clive Baltazar MD Tissues: Uterus, NOS Procedures: Surgery Specimen Level V HEADER OPERATION: ERAS, hysterectomy, ALICE, bilateral salpingectomy- oophorectomy PRE-OP DIAGNOSIS: Abnormal uterine bleeding, fibroid uterus, endometrial hyperplasia TISSUE SUBMITTED: Uterus, cervix, bilateral fallopian tubes, bilateral ovaries MICROSCOPIC DIAGNOSIS Uterus, cervix, bilateral fallopian tubes and bilateral ovaries, hysterectomy and salpingectomy- oophorectomy: Cervix - No pathologic diagnosis. Endometrium - Consistent with exogenous hormone effects. - Negative for hyperplasia. Myometrium - Diffused adenomyosis. - Intramural and subserosal leiomyomas (largest measuring 2.5cm in greatest dimension) Bilateral fallopian tubes- No pathologic diagnosis. One ovary- Not pathologic diagnosis. Second ovary- Simple benign epithelial cyst (0.5cm in greatest dimension). VERONICA/ 02/12/24 COMMENT Ectocervical epithelium is not seen the sections of the cervix examined. MICROSCOPIC DESCRIPTION Slides are reviewed. GROSS DESCRIPTION Received in fixative is one container labeled with the patient's name and designated uterus, cervix, bilateral fallopian tubes and ovaries. The specimen consists of a hysterectomy specimen consisting of uterus, cervix and detached bilateral fallopian tubes and ovaries. The uterus with cervix weighs 760 gm and measures 17.0 x 15.0 x 10.0 cm. The serosal surface is lu glistening. A few subserosal nodules are noted. The ectocervical mucosa is only present focally. The external os is circular in contour. The endocervical canal measures 4.0 cm in length and the endocervical mucosa is lu glistening and unremarkable. Triangular endometrial cavity measures 7.0cm in length and up to 5.0cm width. The endometrium is lu glistening without any mass lesions and measures up to 0.2cm in thickness. Sections of the uterine wall reveal multiple nodules with intramural and subserosal location. The largest mass measures 2.5cm in greatest dimension. Sections of these masses reveal lu whorled cut surfaces without areas of hemorrhage, necrosis or cystic degeneration. Section of the uterine wall reveal diffusely thickened and trabeculated cut surfaces, suspicious for adenomyosis and measures up to 6.0cm in thickness. Fallopian tubes and ovaries are not identified as right or left. One of the fallopian tubes measures 3.5cm in length and 0.7cm in diameter. Fimbrial end is identified. Sections reveal unremarkable cut surfaces. Adjacent ovary measures 2.5 x 1.5 x 1.0cm. Sections reveal unremarkable cut surfaces. Second fallopian tube is similar appearance to the first one and measures 4.5cm in length and 0.5cm in diameter. Adjacent second ovary measures 2.5 x 1.5 x 1.0cm. Sections reveal a cyst filled with clear fluid measuring 0.5cm in greatest dimension. Academic Coach sections are submitted in 15 cassettes as follows: 1 - anterior cervix, 2 - posterior cervix, 3 -7 - anterior uterine wall, 8-10 - posterior uterine wall (almost entire endometrium is submitted), 11- Largest nodular mass, 12- smaller intramural and subserosal nodular masses, 13- one fallopian tube and ovary, 14-15- Second fallopian tube and adjacent ovary (14- fallopian tube and ovary, 15- more section second ovary) VERONICA: 02/11/24 TC:5 CPT: 94637
[2024-02-11] MEDS: Cefazolin 2 GM in 0.9% Normal Saline (100mL Bag) 100 ML IV (10:30)
[2024-02-11] MEDS: Bupivacaine 0.25% 30 ML Vial (11:15)
[2024-02-11] MEDS: Ondansetron 4 MG/2 ML Vial IV (12:12)
--- NOTE | 2024-02-11 12:25 | PCM.OPRPT ---
Report of Operation Date of Procedure: 02/11/24 Pre-Operative Diagnosis: AUB, Fibroid uterus, endometrial Hyperplasia Post-Operative Diagnosis: Same, urethral laceration Surgery/Procedure Performed:: ALICE, BSO, cysto Description of Surgical Findings:: Enlarged Fibroid uterus, 18 week size, normal tubes and ovaries Surgeon: Mitzi Diamond program manager environmental planning: Nieves Suh Type of Anesthesia: General and Local Special Medications: 0.5% marcaine, hemoblast Specimen's removed: uterus, Cervix, bilateral fallopian tubes and ovaries Drains: curiel Estimated Blood Loss (mL): 50 Fluids Replaced: 1500cc Description of Procedure: After informed consent was obtained the patient was taken the operating room she was placed in the supine position. Curiel catheter was placed under sterile technique see notation below under complication. Abdominal and vaginal preps were performed. Patient was draped in the normal sterile fashion. At this time Pfannenstiel incision was made carried down to the underlying layer of the fascia. Fascia was then grasped with 2 straight Meron clamps in the inferior aspect the rectus muscle dissected off sharply. This was then turned to superior aspect of the fascial edge was again grasped with 2 Meron clamps tented up and the rectus muscle dissected off sharply. At this time the rectus muscles were midline bluntly. Peritoneum was entered bluntly. At this time the uterus was palpated shifted more to the right approximately 18 week size uterus at this time the skin incision was extended to allow delivery of the uterus through the incision. The uterus was brought up through the incision. Nikhil retractor placed. Round ligaments on either side were clamped Ligasure used to incise and divide broad ligament. Ligasure was used to clamp the IP ligament on Left. The visualization on right was poor- so Uteroovarian ligament clamped and sealed and ligated with ligasure. the bladder flap was taken down. Next both uterine arteries on right and left were skeletonized with Metzenbaum scissor and clamped, sealed and ligated with ligasure. This was continued down until the cervical vaginal junction. At this time Sandra's were placed just below the cervix. Specimen was dissected off using Jerome scissors. Specimen was removed and sent to pathology for evaluation. At this time the cuff was suture transfixed using 0 Vicryl. Multiple [id number] sutures then placed in the midline. Good hemostasis was appreciated. At this time further evaluation of the left IP ligament was performed. The right Ovary and tube were grasped with Vadim and the IP ligament was sealed and ligated with ligasure. Irrigation of pelvis performed. At this time hemoblast was placed over the cuff and bilateral pedicles. At this time then all laps were removed count was correct. The Peritoneum was grasped with Mima. The peritoneum was reapproximated using #2 Vicryl suture in a running fashion. Next the fascia was reapproximated using #1 PDS in a running fashion. The subcutaneous layer was irrigated and closed using 2 -0 vicryl suture. And the skin was closed using 3-0 Monocryl on a David needle. At this time once closure was complete dressing was applied. The patient was redraped and prepped for cystoscopy. Was placed in the [facility]. The Curiel catheter was removed. Please see urology note for dictation. vaginal sweep negative. instrument and lap count correct x 2. vaginal packing placed by Urology 26 persian catheter placed- will remove tomorrow morning. Grafts/Implants Used: none Procedure Start Time: 11:25 Procedure Stop Time: 12:59 Complications Prior to start of procedure nursing placed curiel during vaginal prep it inadvertently got dislodge and bleeding from urethra was noted. - urology was made aware- 24 persian catheter was placed. 2 sponges for pressure placed in vagina during case betadine. 3-0 rapdie suture placed on tiny laceration noted superior and adjacent to urethra. After case was complete sponges were removed from vagina and active brisk bleeding was noted around cathter coming from urethra- Urology DR. Schulte was called for formal evaluation. Admit VTE Documentation VTE Present on Admission: Yes VTE Mechan Device Prophylaxis: SCD's VTE Pharm Prophylaxis ordered?: Yes
--- NOTE | 2024-02-11 13:07 | PCM.OPRPT ---
Report of Operation Date of Procedure: 02/11/24 Pre-Operative Diagnosis: Urethral trauma Post-Operative Diagnosis: Same Surgery/Procedure Performed:: Cystourethroscopy Surgeon: Gavi Schulte Type of Anesthesia: General Description of Procedure: The patient is a 53-year-old female who was being prepped for a hysterectomy when the urethral Austin was inserted and blood began pouring out around the catheter. During the procedure, a larger Austin catheter was inserted and vaginal packing was placed. At the conclusion of the case, the packing was removed and the bleeding continued from around the Austin catheter. I was called for further evaluation and management. The patient was in dorsolithotomy position and was prepped and draped in usual sterile fashion. There was a stitch at the 12 o'clock position of the urethral meatus. There was slow oozing from the urethra. The cystoscope was inserted through the urethra under direct visualization into the urinary bladder. Using the 70 degree lens, the entire bladder was visualized finding no evidence of mass, erythema, ulceration, trauma or foreign body. The 12 degree lens was then used for visualization of the urethra. Austin trauma was identified on the patient's right side of the urethra approximately 1 centimeter distal to the bladder neck. There was no other abnormality identified. At this time the cystoscope was removed and a 26 Austin catheter was placed to straight drain. Packing was reinserted into the vagina. The patient was then awakened and taken to the recovery room in good condition. There were no complications during the procedure. Grafts/Implants Used: None Complications None Admit VTE Documentation VTE Present on Admission: Yes VTE Mechan Device Prophylaxis: SCD's VTE Pharm Prophylaxis ordered?: No Reason prophylaxis not ordered:: Treatment Not Indicated
[2024-02-11] MEDS: Lactated Ringers @ 70 MLS/HR 70 ML IV (13:35)
[2024-02-11] MEDS: SimETHICONE 80 MG Chewable Tablet PO (18:32)
--- NOTE | 2024-02-11 18:38 | NURSING ---
Stood pt at bedside and pt began to have blood running down her leg. Pt was cleaned multiple times but blood was still flowing. SCD's and socks also changed.
[2024-02-11] MEDS: Docusate Sodium 100 MG Capsule PO (22:01)
[2024-02-11] MEDS: Ketorolac 30 MG/ML Syringe IV (22:01)
[2024-02-12] MEDS: Lactated Ringers @ 70 MLS/HR 70 ML IV (01:54)
[2024-02-12 03:45] VITALS: BP 133/78; PULSE 71; RESP 16; TEMP 36.6; O2SAT 97
[2024-02-12] MEDS: Ketorolac 30 MG/ML Syringe IV ×3 (05:53→21:26)
[2024-02-12] MEDS: Acetaminophen 500 MG Tablet 1000 MG PO ×3 (05:55→17:44)
[2024-02-12 06:01] LABS: Hemoglobin 13.6 g/dL (12.0-15.0); Mean Corp Hgb Conc 31.6 g/dL (32-36); Mean Corpuscular Hgb 27.7 pg (27.0-32.0); Mean Corpuscular Volume 87.6 fL (81-99); Mean Platelet Vol. 11.2 fl (6.2-12.0); Platelet Count 373 K/mm3 (150-450); RBC Distribution Width CV 15.4 % (11.6-14.6); RBC Distribution Width SD 49.3 fl (35.1-43.9); Red Blood Count 4.91 M/mm3 (4.2-5.4); White Blood Count 16.1 K/mm3 (4.4-11.0)
[2024-02-12 06:48] LABS: Anion Gap 5 (5-15); BUN 8 mg/dL (7-18); BUN/Creat Ratio 7.8 RATIO (10-20); Calcium,Total 7.9 mg/dL (8.5-10.1); Chloride 109 mmol/L (98-107); Creatinine, Serum 1.03 mg/dL (0.55-1.02); EST Glomerular Filtration Rate 60 mL/min (>60); Est Glom Filt Rate - Afr Amer 72 mL/min (>60); Estimated Creatinine Clearance 77.64 ml/min; Glucose 113 mg/dL (74-106); Potassium 4.1 mmol/L (3.5-5.1); Sodium Level 139 mmol/L (136-145)
[2024-02-12 07:07] VITALS: O2SAT 97
[2024-02-12] MEDS: SimETHICONE 80 MG Chewable Tablet PO ×2 (07:34→11:53)
[2024-02-12] MEDS: Docusate Sodium 100 MG Capsule PO ×2 (07:34→21:25)
[2024-02-12] MEDS: Ensure Plus High Protein 120 ML LIQUID PO (07:34)
--- NOTE | 2024-02-12 08:47 | PN.OBGYN_ITS ---
Subjective Subjective Patient is doing well this morning. Pain is well-controlled. She has only standing at the side of the bed but has vaginal bleeding when she stands up so she has not ambulated since surgery. The Austin is still in place. She is tolerating her diet without nausea or vomiting. She denies chest pain, shortness of breath, lightheadedness, dizziness, leg pain. She has not yet passed gas. Objective Data Objective Data Vital Signs: Vital Signs Temp Pulse Resp BP Pulse Ox O2 Del Method O2 Flow Rate 98 F 71 16 133/78 H 97 Room Air 4 02/12/24 03:45 02/12/24 03:45 02/12/24 03:45 02/12/24 03:45 02/12/24 07:07 02/12/24 07:07 02/11/24 14:45 Oxygen Flow Rate (L/min) 4 Oxygen Delivery Method Room Air Weight: 248 lb 3.848 oz Body Mass Index (BMI) 42.6 Intake & Output: Intake and Output for Last 24 Hours 02/10/24 02/11/24 02/12/24 23:59 23:59 23:59 Intake Total 1212 / 1212 862.17 / 862.17 Output Total 950 / 1850 1550 / 1550 Balance 262 / -638 -687.83 / -687.83 Lab / Micro Data 02/12/24 05:15 02/12/24 05:15 Labs: Laboratory Results - last 24 hr 02/11/24 08:55: POC Glucose 120 H 02/12/24 05:15: WBC 16.1 H, RBC 4.91, Hgb 13.6, Hct 43.0, MCV 87.6, MCH 27.7, MCHC 31.6 L, RDW Std Deviation 49.3 H, RDW Coeff of Susanna 15.4 H, Plt Count 373, MPV 11.2, Sodium 139, Potassium 4.1, Chloride 109 H, Carbon Dioxide 25.0, Anion Gap 5, BUN 8, Creatinine 1.03 H, Estim Creat Clear Calc 77.64, Est GFR (MDRD) Af Amer 72, Est GFR (MDRD) Non-Af 60, BUN/Creatinine Ratio 7.8 L, Glucose 113 H, Calcium 7.9 L Physical Exam Const alert and no apparent distress General Appearance: comfortable HEENT normocephalic Resp normal respiratory effort GI soft to palpation and non-distended GI Narrative: ATTP, dressing c/d/i, non acute Narrative: Austin catheter and vaginal packing in place. Pad with about a 4x5 cm area of bright red blood present at the front of her pad. Blood is present around ca theter and a slow trickle of red blood is noted coming from the urethral opening. Assessment & Plan (1) S/P hysterectomy: PLAN: Patient is postop day 1 from a total abdominal hysterectomy. She is doing well this morning but does note bleeding overnight and this morning. Bleeding is noted on exam coming from the urethral opening around the Austin catheter. Will call urology prior to removing vaginal packing and Austin catheter, and prior to discharge today.
--- NOTE | 2024-02-12 08:53 | DCINST_ITS ---
Discharge Instructions Diet Discharge Diet: No restrictions Activity Discharge Activity: May Not Drive and May Shower May resume sexual activity in: 6 weeks (nothing in the vagina for 6 weeks) Ice area for (Minutes): 15 Weight Bearing Status: Weight bearing as tolerated Lifting Restrictions: nothing greater than 10 pounds Dressing / Incision Call your doctor if your incision/area has: Continuous Slow Oozing, Sudden Increased Bleeding, Increased Pain/ Swelling, Increased Redness, Foul Smelling Discharge and Swelling at the incision site Call your doctor if you observe: Fever of 101 or Higher, Coldness, Increased Pain, Numbness or Tingling, Change in Color, Inability to urinate, Inability to have a bowel movement, Using more than 1 pad per hour, Shortness of breath, Dizziness, Fainting spells, Swelling in the ankles, Chest pain, Prolonged hiccupping, Increased palpitations (irregular heartbeat), Calf discomfort and Uncontrolled pain Suture Line Care: Avoid Pulling/Pushing and Avoid Pinching/Bending Remove Dressing in: 2 days Cleanse incision/area with: Soap & Water Follow Up Care Please Follow Up With: Mitzi Diamond MD When: 1-2 weeks 6 weeks Test Results: Test results from this visit will be discussed in further detail at your follow- up appointment, if applicable. Discharge Plan Admission Admit Date/Time: 02/11/24 07:54 Attending Provider: Mitzi Diamond Primary Care Provider: Clive Baltazar Instructions Patient Instructions: Abdominal Hysterectomy Dc Discharge Orders/Prescriptions Prescriptions: Continued levothyroxine 75 mcg capsule 88 mcg PO DAILY Discontinued norethindrone (contraceptive) 0.35 mg tablet 5 mg PO BID Patient Comments: TAKE 1 TABLET BY MOUTH EVERY DAY Other Ambulatory Orders: 12 Lead EKG (Routine) Timeframe: [id number] Location: None Selected Ordered By: Dr. Mitzi Diamond Referrals / Follow Up: Clive Baltazar MD [Primary Care Provider] - Disposition Disposition (needs filled in before D/C Order can be placed): Home, Self Care
--- NOTE | 2024-02-12 09:15 | PHA.DC.MR.R ---
Pharmacy [place] Med Reconciliation Pharmacy Service has performed discharge medication reconciliation for this patient. The patient's discharge medication list was reviewed for discrepancies and discrepancies were resolved. Medications at Discharge Home Medications levothyroxine 75 mcg capsule 88 mcg PO DAILY THYROID 09/08/22
--- NOTE | 2024-02-12 09:21 | CASEMGMT ---
CHEYENNE OROZCO Assessment: Face to Face with pt for initial transition planning/care coordination assessment. CHEYENNE OROZCO introduced self and role at [facility], pt voices understanding and consents to assessment. Pt. laying in bed in no distress. Pt is A&O x4 and answers all questions appropriately at this time. Care providers, pharmacy, and demographics verified/updated. Admitting Dx: [facility] PCP:Giovanny Specialists:BJ Diamond; [facility] Preferred Pharmacy: [facility] Insurance: [employer] Prescription Benefit: yes LNOK: [place] - Living Arrangements: Pt lives with in a split level home with 2 steps into main entrance with hand rails. Pt reports she is independt with ADL's, is able to assist if needed. Pt denies concerns at home. Transportation: Pt drives self and denies concerns with transportation. will transport until able to drive again. DME: Pt denies having any DME equipment at home. HHC/SNF: Pt denies Hx. Pt states no concerns with going home at time of dc. Pt states no further concerns/needs. CM to follow. Advised pt to ask CM if any further question/concerns/needs arise, voices understanding. Pt Goal: Home no needs. Plan: Home Madalyn QUINN CM
[2024-02-12 12:00] VITALS: BP 125/72; PULSE 70; RESP 15; TEMP 36.7; O2SAT 98
[2024-02-12] MEDS: 0.9% Saline Lock 10 ML Syringe IV (13:26)
[2024-02-12 16:00] VITALS: BP 128/72; PULSE 74; RESP 15; TEMP 36.8; O2SAT 99
--- NOTE | 2024-02-12 17:06 | PCM.PN.GU ---
Subjective Subjective She was still bleeding from urethra this morning, and at noon I adjusted the packing with curiel out. She did not have blood during that time. No other issues. Urine clear. Objective Data Objective Data Vital Signs: Vital Signs Temp Pulse Resp BP Pulse Ox O2 Del Method O2 Flow Rate 98.3 F 74 15 128/72 H 99 Room Air 4 02/12/24 16:00 02/12/24 16:00 02/12/24 16:00 02/12/24 16:00 02/12/24 16:00 02/12/24 16:00 02/11/24 14:45 Oxygen Flow Rate (L/min) 4 Oxygen Delivery Method Room Air Weight: 112.6 kg Body Mass Index (BMI) 42.6 Intake & Output: Intake and Output for Last 24 Hours 02/10/24 02/11/24 02/12/24 23:59 23:59 23:59 Intake Total 1212 / 1212 1660.17 / 1660.17 Output Total 950 / 1850 2750 / 2750 Balance 262 / -638 -1089.83 / -1089.83 Lab / Micro Data 02/12/24 05:15 02/12/24 05:15 Labs: Laboratory Results - last 24 hr 02/12/24 05:15: WBC 16.1 H, RBC 4.91, Hgb 13.6, Hct 43.0, MCV 87.6, MCH 27.7, MCHC 31.6 L, RDW Std Deviation 49.3 H, RDW Coeff of Susanna 15.4 H, Plt Count 373, MPV 11.2, Sodium 139, Potassium 4.1, Chloride 109 H, Carbon Dioxide 25.0, Anion Gap 5, BUN 8, Creatinine 1.03 H, Estim Creat Clear Calc 77.64, Est GFR (MDRD) Af Amer 72, Est GFR (MDRD) Non-Af 60, BUN/Creatinine Ratio 7.8 L, Glucose 113 H, Calcium 7.9 L Physical Exam Narrative packing removed, she ambulated around the room, and no further bleeding. Assessment & Plan Assessment/Plan (1) Urethral laceration: PLAN: Plan ok to eat, void and go home from standpoint. call if issues.
[2024-02-12 19:45] VITALS: BP 127/74; PULSE 76; RESP 15; TEMP 36.7; O2SAT 100
[2024-02-12 21:30] VITALS: BP 157/90; PULSE 65; RESP 15; TEMP 36.6; O2SAT 97
--- NOTE | 2024-02-12 21:43 | NURSING ---
dr feldman paged and updated as ordered with pt's ability to urinate approx 150 cc straw colored urine without vaginal bleeding while ambulating. dr feldman ok for pt to discharge home at this time
--- NOTE | 2024-02-12 22:52 | NURSING ---
2120: D/C INSTRUCTIONS REVIEWED WITH PATIENT, DENIES ANY QUESTIONS OR CONCERNS AND FEELS READY TO GO HOME. IV DC'D. HS MEDS GIVEN.
== END 2024-02-12 22:49 | disposition home or self-care (01) | DRG 671 ==
LOC: ACINP 07:56 → MS3 15:22
PROVIDERS: Anesthesiology; Admitting Provider Obstetrics & Gynecology; PCP Family Medicine; Referring Provider Obstetrics & Gynecology; Visit Provider Obstetrics & Gynecology
PROC: 0UT90ZZ Resection of Uterus, Open Approach (ICD-10-PCS; CPT 58150; principal; 2024-02-11 09:50)
DX: T83.091A Other mechanical complication of indwelling urethral catheter, initial encounter (principal); S37.33XA Laceration of urethra, initial encounter; T83.021A Displacement of indwelling urethral catheter, initial encounter; D25.9 Leiomyoma of uterus, unspecified; Y92.234 Operating room of hospital as the place of occurrence of the external cause; Y73.8 Miscellaneous gastroenterology and urology devices associated with adverse incidents, not elsewhere classified; N85.00 Endometrial hyperplasia, unspecified; Z79.890 Hormone replacement therapy
CPT/HCPCS: 36415; 80048; 81025; 82962; 83735; 84443; 85027; 88307; 93005; 94762; J7120; A4216; J2405; J3475

== ENCOUNTER → 2024-05-11 | Outpatient (CLI) | payer OTHER, SELFPAY ==
[2024-05-11 10:54] LABS: Cholesterol 150 mg/dL (200); High Density Lipoprotein 63 mg/dL; T4 Free Direct 1.29 ng/dL (0.76-1.46); Thyroid Stim Hormone (TSH) 2.43 uIU/mL (0.358-3.74); Triglycerides 115 mg/dL; Very Low Density Lipoprotein 23 mg/dL (5-40)
[2024-05-13 13:08] LABS: Vitamin D 1,25-Dihydroxy 35.3 pg/mL (24.8-81.5)
== END | disposition home or self-care (01) ==
LOC: MTLAB 08:45
PROVIDERS: PCP Family Medicine; Referring Provider Family Medicine; Visit Provider Family Medicine
DX: E03.9 Hypothyroidism, unspecified (principal)
CPT/HCPCS: 36415; 80061; 82652; 84439; 84443

== ENCOUNTER → 2024-09-13 | Outpatient (CLI) | payer OTHER, SELFPAY | END | disposition home or self-care (01) | LOC: OPBI 09:35 | PROVIDERS: PCP Family Medicine; Referring Provider Family Medicine; Visit Provider Family Medicine | DX: Z12.31 Encounter for screening mammogram for malignant neoplasm of breast (principal) | CPT/HCPCS: 77063; 77067 ==

== ENCOUNTER → 2025-05-16 | Outpatient (CLI) | payer OTHER, SELFPAY ==
[2025-05-16 10:50] LABS: Cholesterol 161 mg/dL (<=200); Low Density Lipoprotein Calc. 79 mg/dL; Triglycerides 108 mg/dL; Very Low Density Lipoprotein 22 mg/dL (5-40); Vitamin D,25 Hydroxy 15.7 ng/mL (30-100); cholesterol:hdl ratio screen 2.66
--- OUTSIDE RECORDS SUMMARY | 2025-05-16 11:19 | XMS RPT_ITS | CCD ---
Author Organization [facility] Care Team Providers Care Stick Welder Name Role Phone Dr. Abran Baltazar Primary Care Provider Shanta Vazquez Attending Provider Unavailable Dr. Abran Baltazar Referring Provider Dr. Ayesha Landry Attending Provider Dr. Ayesha Landry Other Provider [phone] Unavailable Primary Care Provider UnavailDr. Clive Rico Primary Care Provider Dr. Chandra Hankins Attending Provider Dr. Mitzi Greenfield Referring Provider Unavailable Primary Care Provider Unavailabl e Clive Baltazar Primary Care Unavailable Clive Baltazar Attending Unavailable Clive Baltazar Referring Unavailable Clive Baltazar Primary Care Unavailable Clive Baltazar Attending Unavailable Clive Baltazar Referring Unavailable Giovanny, Christophneal Primary Care Unavailable Clive Baltazar Attending Unavailable Clive Baltazar Referring Unavailable Giovanny, Christophneal Primary Care Unavailable Chandra Hankins Attending Unavailable Mitzi Blanco Referring Unavail able Clive Baltazar Primary Care Unavailable Mark Blancore Admitting Unavail able Mitzi Blanco Attending Unavail able Mitzi Blanco Referring Unavail able MITZI GERARD Attending Unavail able MITZI GERARD Attending Unavail able MITZI GERARD Attending Unavail able Medications Current Medications Medication Drug Class(es) Dates Sig (Normalized) Sig (Original) levothyroxine sodium 0.075 mg oral capsule (20 sources) l-Thyroxine Start: 09-08-2022 take 88 ug by mouth once daily Levothyroxine Active 88 MCG PO DAILY September 08, 2022 1:00am Start: 09-08-2022 take 75 ug by mouth once daily Levothyroxine Active 75 MCG PO DAILY September 08, 2022 12:00am take 1 tablet by marii th once daily before breakfast levothyroxine (SYNTHROID) 88 mcg tablet Take 88 mcg by mouth daily before breakfast. Active Comment on above: Take 88 mcg by mouth daily before breakfast. Completed/Discontinued Medications Medication Drug Class(es) Dates Sig (Normalized) Sig (Original) norethindrone acetate 5 mg oral tablet (15 sources) Start: 09-14-2023 End: 01-30-2025 take 2 tablets by mouth once daily norethindrone (AYGESTIN) 5 mg tablet Take 2 tablets by mouth once daily. 180 tablet 1 09/14/2023 01/30/2025 Discontinued Start: 08-20-2023 End: 02-16-2024 take 1 tablet by mouth once daily norethindrone (AYGESTIN) 5 mg tablet Take 1 tablet by mouth once daily. 90 tablet 1 08/20/2023 02/16/2024 Active Start: 06-02-2023 take 0.35 mg by mout h once daily Norethindrone (Contraceptive) Active 0.35 MG PO DAILY June 01, 2023 11:00pm Start: 06-02-2023 End: 02-12-2024 take 5 mg by mouth twice daily Norethindrone (Contrace ptive) Discontinued 5 MG PO TWICE A DAY June 02, 2023 12:00am February 12, 2024 8:51am Comment on above: Take 1 tablet by marii th once daily. Take 2 tablets by mo uth once daily. Problems Active Problems Problem Classification Problem Date Documented Date Episodic/Chronic Benign neoplasm of uterus (2 sources) Uterine leiomyoma; Translations: [Leiomyoma of uterus, unspecified] 12-23-2023 Episodic Crushing injury or internal injury (2 sources) Laceration of urethra; Translations: [Laceration of urethra, initial encounter] 02-12-2024 Episodic Other female genital disorders (4 sources) Abnormal uterine bleeding; Translations: [Abnormal uterine and vaginal bleeding, unspecified] 11-26-2023 Chronic Other female genital disorders (2 sources) Endometrial hyperplasia; Translations: [Endometrial hyperplasia, unspecified] 12-23-2023 Chronic Other female genital disorders (1 source) Enlarged uterus; Translations: [Hypertrophy of uterus] 12-23-2023 Episodic Other screening for suspected conditions (not mental disorders or infectious disease) (12 sources) Patient encounter status; Translations: [Encounter for screening for malignant neoplasm of colon] Onset: 09-19-2024 09-08-2022 Episodic Residual codes; unclassified (1 source) Acquired absence of both cervix and uterus; Translations: [Acquired absence of both cervix and uterus] 02-12-2024 Episodic Residual codes; unclassified (2 sources) Postoperative state; Translations: [Other specified postprocedural states] 02-26-2024 Episodic Thyroid disorders (1 source) Hypothyroidism, unspecified; Translations: [Hypothyroidism, unspecified] Onset: 06-01-2024 Chronic Past or Other Problems Problem Classification Problem Date Documented Date Episodic/Chronic Complications of surgical procedures or medical care (1 source) Accidental puncture and laceration of a genitourinary system organ or structure during a genitourinary system procedure; Translations: [Accidental puncture and laceration of a genitourinary system organ or structure during a genitourinary system procedure] Onset: 04-20-2024 Episodic Unclassified (1 source) Patient encounter status 01-30-2025 Results Test Name Value Interpretation Reference Range Facility [facility] 01-30-2025 CNOV Office Visit (OBGYWM ) ALISA CORONEL ([id number]) 1970 F Date Time Provider Department 01/30/25 9:20 AM MITZI GERARD OBGYWRafael During your visit today, we recorded the following information about you: Blood pressure Weight Height Last Period 136/84 114.8 kg 1.626 m 02/11/24 Mitzi Gerard MD 01/30/2025 9:46 AM Signed Prism Measurer offered: Patient declinesCaitlin Dodson is a 54 year old who presents for an annual gynecologic exam without complaints. Considering going to [place] in the fall with . Postmenopausal: s/p Hysterectomy 02/11/24 d/t bleeding fibroids HRT use: No. Still get period: No Menopause symptoms: None Time with current partner: 33 years Number of lifetime partners: 1 control frequency: Never HPV vaccine: No; Last pap smear: 05/08/21: negative History of abnormal pap: No Bothersome pelvic pain: No Last mammogram: August 2024 normal History of abnormal mammogram: No Patient concerns for STD exposure: No. OB History Gravida2 Para2 Term2 Preterm0 AB0 Living2 SAB0 IAB0 Ectopic0 Multiple0 Live Births2 Problem Relation Age of Onset other (neoplasm of uterus) Mother Kidney Disease Mother Hypertension Mother Mental illness Mother Prostate Cancer Father Hypertension Father other (muscular disorder) Father Thyroid Sister Depression Sister Suicide / Suicidal Behaviors Brother Depression Brother Heart disease Maternal Grandfather Stroke Maternal Grandfather Heart Attack Paternal Grandfather SOCIAL HISTORY Social History Tobacco Use Smoking status: Never Smokeless tobacco: Never Vaping Use Vaping status: Never Used Substance Use Topics Alcohol use: Never Drug use: Never REVIEW OF SYSTEMS Abdomen: No abdominal pain, nausea, vomiting, diarrhea, or constipation. No bloating, early satiety, indigestion, or increased flatulence. Bladder: No dysuria, gross hematuria, urinary frequency, urinary urgency, or incontinence Breast: No breast lumps, nipple d/c, overlying skin changes, redness or skin retraction Allergies and current medication updated:Yes SENSITIVE EXAM: The sensitive examination was discussed with the Patient or Patient's Authorized General Engineer. As applicable, any other physician, advance practice provider, medical student, or other health professional student that will be observing or involved in the sensitive examination for educational or training purposes was discussed with the Patient or Authorized General Engineer. The Patient or Authorized General Engineer has agreed to proceed with the sensitive examination. (Sensitive examination includes inspection and/or palpation of the breasts, pelvis, prostate and anorectal regions). EXAM: BP 136/84 Ht 5' 4 (1.63m) Wt 253 lb (114.8kg) LMP 02/11/2024 BMI 43.41 kg/(m2). GENERAL: pleasant, female in no apparent distress HEENT: Normocephalic, atraumatic, mucus membranes moist, and no lesions NECK: Supple, full range of motion, no adenopathy, and thyroid normal DERMATOLOGY: Normal, without lesions, non-icteric, and non-hirsute BREAST: soft, non-tender, symmetric, no dominant mass, normal nipple-areolar complex, no lymphadenopathy, and no nipple discharge CHEST: Normal inspiratory effort ABDOMEN: soft, non-tender, and no masses PELVIC: external genitalia normal, normal Bartholin's glands, urethra, Dequincy's glands, no vulvar lesions, good vaginal support, physiologic discharge present, cervix normal, normal appearing perineal body and perianal region BIMANUAL: no adnexal masses and non-tender RECTOVAGINAL: deferred. NEURO: alert and oriented x3,exam grossly non-focal EXTREMITIES: normal ASSESSMENT/PLAN: 1) Health maintenance: Pap/HPV today Mammogram ordered Nutrition, exercise and routine health maintenance exams reviewed. Calcium/Vitamin D supplementation information provided. Colon cancer screening: up to date with screening 2) Follow up one year or sooner as needed Mitzi Blanco MD Allergies As of Date: 01/30/2025 (No Known Allergies) Date Reviewed: 01/30/2025 Reviewed by: Corin Etienne MA - Fully Assessed Reason for Visit: Yearly Exam [187] Primary Visit Diagnosis:Encounter for gynecological examination (general) (routine) without abnormal findings [Z01.419] Other Visit Diagnoses:Encounter for screening mammogram for breast cancer [Z12.31] Special screening examination for human papillomavirus (HPV) [Z11.51] Screening for cervical cancer [Z12.4] Order(s):NAZANIN SCREENING W JENA [[id number]] Order #: [id number] FUTURE PAP TEST [GCS9946] Order #: [id number] Prescriptions as of 01/30/2025 - levothyroxine (SYNTHROID) 88 mcg tablet Take 88 mcg by mouth daily before breakfast. Problem List As Of Date: 01/30/2025 (None) Medications Discontinued During This Encounte (more content not included)... Normal [facility] HIGH RISK HUMAN PAPILLOMA KARLA (HPV), PCR FOR DETECTION AND GENOTYPINGon 01-30-2025 HPV 16 Ag Ql (Unsp spec) Not detected Normal Not detected [facility] Comment on above: Order Comment: Speci men Type: FLUID SPECIMEN Ordering Facility: [facility] Address: [address] [place] [address] Performed By: #### H PVHRT #### [facility] CLIA [id number] [address] [place] [address] [place] HPV 18 Ag Ql (Unsp spec) Not detected Normal Not detected [facility] Comment on above: Order Comment: Speci men Type: FLUID SPECIMEN Ordering Facility: [facility] Address: [address] [place] [address] Performed By: #### H PVHRT #### [facility] CLIA [id number] [address] [place] [address] [place] HPV 31+33+35+39+45+51+52+5 6+58+59+66+68 DNA DAVID+probe Ql (Cvx) Not detected Normal Not detected [facility] Comment on above: Order Comment: Speci men Type: FLUID SPECIMEN Ordering Facility: [facility] Address: [address] [place] [address] Result Comment: High Risk HPV Other Type includes HPV types 31, 33, 35, 39, 45, 51, 52, 56, 58, 59, 66 and 68. Performed By: #### H PVHRT #### [facility] CLIA [id number] [address] [place] [address] [place] PAP TESTon 01-30-2025 ADEQUACY Normal [facility] Comment on above: Order Comment: Speci men Type: FLUID SPECIMEN Ordering Facility: [facility] Address: [address] [place] [address] Result Comment: Sati sfactory for interpretation. Transformation zone present Performed By: #### L [id number] #### [facility] CLIA [id number] [place] [address] [place] [facility] CLIA [id number] [address] [place] [address] [place] CASE REPORT Normal [facility] Comment on above: Order Comment: Speci men Type: FLUID SPECIMEN Ordering Facility: [facility] Address: [address] [place] [address] Result Comment: Gyne cologic Cytology Report Case: [id number] Authorizing Provider: Mitzi Gerard, Collected: 01/30/2025 09:47 AM MD Ordering Location: OB/Gynecology Received: 01/30/2025 11:46 AM First Screen: Gmitro, Justice, [place], ASCP Rescreen: Joe, Loretta, CT, ASCP Specimen: Pap Test, ThinPrep, Cervix Performed By: #### L [id number] #### [facility] CLIA [id number] [address] [place] [address] [place] [facility] CLIA [id number] [address] [place] [address] [place] CLINICAL HISTORY, CYTOLOGY, SAP PP CONSULTANT Hysterectomy, Supracervical Normal [facility] Comment on above: Order Comment: Speci men Type: FLUID SPECIMEN Ordering Facility: [facility] Address: [address] [place] [address] Performed By: #### L [id number] #### [facility] CLIA [id number] [address] [place] [address] [place] [facility] CLIA [id number] [address] [place] [address] [place] FINAL PERFORMING LAB Normal [facility] Comment on above: Order Comment: Speci men Type: FLUID SPECIMEN Ordering Facility: [facility] Address: [address] [place] [address] Result Comment: Tech nical component, supervisor metal furniture assembly screening performed at [facility], [address] [place] [address] CLIA# [id number] Diagnostic interpretation performed at [facility], [address] [place] [address] CLIA# [id number] Inserting Operator: Brandon Godoy M.D. Performed By: #### L [id number] #### [facility] CLIA [id number] [address] [place] [address] LAB CLIA [id number] [address] [place] [address] [place] INTERPRETATION, CYTOLOGY, SAP PP CONSULTANT Normal [facility] Comment on above: Order Comment: Speci men Type: FLUID SPECIMEN Ordering Facility: [facility] Address: [address] [place] [address] Result Comment: Nega tive for intraepithelial lesion or malignancy. at 1106 EDT Performed By: #### L [id number] #### [facility] CLIA [id number] [address] [place] [address] STATES [facility] CLIA [id number] [address] [place] [address] [place] PAP DISCLAIMER COMMENT The Pap Smear is a screening test for cervical cancer. False negative results occur with all screening tests, emphasizing the need for rescreening at recommended intervals, and clinical correlation. Normal [facility] Comment on above: Order Comment: Speci men Type: FLUID SPECIMEN Ordering Facility: [facility] Address: [address] [place] [address] Performed By: #### L [id number] #### [facility] CLIA [id number] [address] [place] [address] LAB CLIA [id number] [address] [place] [address] [place] PAP STRIKER OFF COMMENT This specimen has be en analyzed by the ThinPrep Imaging System, an automated imaging and review system, which assists the laboratory in evaluating cells on ThinPrep Pap tests. Following automated imaging, selected sanchez from every slide are reviewed by a supervisor metal furniture assembly. Normal [facility] Comment on above: Order Comment: Speci men Type: FLUID SPECIMEN Ordering Facility: [facility] Address: [address] [place] [address] Performed By: #### L [id number] #### [facility] CLIA [id number] [address] [place] [address] [place] [facility] CLIA [id number] [address] [place] [address] [place] SCRN MAMM (CAD)W/JENA BILATo n 09-13-2024 SCRN MAMM (CAD)W/JENA BILAT [facility] Imaging Services [address] [place] [address] [id number] SCRN MAMM (CAD)W/JENA BILAT MR#: [id number] Acct: [id number] Name: ALISA CORONEL Rep #: [id number] : 1970 F 53 From: Mekhi Seo MD PCP: Dr. Clive Baltazar MD Status: [facility] Study: SCRN MAMM (CAD)W/JENA BILAT Date of Exam: 08/20 04/11 Exam# [id number] Ordering Dr: Clive Baltazar [id number] MAMMOGRAPHY - BILATERAL SCREENING 3-D TOMOSYNTHESIS REASON FOR EXAM: Female, 53 years old. SCREENING PERTINENT HISTORY: No significant family history. TECHNIQUE: 2-D mammograms and 3-D Tomosynthesis of the breast (s) were performed. CAD was performed. COMPARISON: 09/09/2023 FINDINGS: The breast composition is heterogeneously dense that can obscure small breast masses. Scattered benign calcifications are seen. No dense spiculated masses or suspicious microcalcifications are identified. No architectural distortion is identified. There is no skin thickening or retraction. There has been no significant change since the prior study. BI/SCRN MAMM (CAD)W/JENA BILAT IMPRESSION: No mammographic signs of malignancy. Routine yearly mammograms recommended. ASSESSMENT CATEGORY: BIRADS Category 1: Negative. A letter regarding these results will be sent to the patient by the facility within 30 days. FOLLOW UP RECOMMENDATION: Yearly follow up mammogram recommended. (A) Approximately 10% of breast cancers are not detected by mammography. A normal mammogram should not delay biopsy of a clinically suspicious abnormality. Electronically Signed: Mekhi Seo MD at 15:46 EST , CC: Dr. Clive Baltazar MD Sr. Payroll Manager: Signed Normal [facility] 05-23-2024 CNPN Telephone (OBGYWM) ALISA CORONEL ([id number]) 1970 F Date Time Provider Department 05/23/24 MITZI GERARD OBGYWM During your visit today, we recorded the following information about you: Emily Salgado RN 05/23/2024 1:02 PM Signed Patient is scheduled with [facility] on 06/02 for routine cleaning, xrays and exam. They are calling to ask if there are any precautions they need to follow since she recently had ALICE/BSO. They are faxing a form to complete for clearance too. [place]NE Mathew Jennifer, RN 05/23/2024 3:46 PM Signed Received form from [facility]. To DM. [place] Jane Deidre, MD 05/24/2024 7:41 AM Signed NO restrictions- form completed Jeana Jackman RN 05/24/2024 8:14 AM Signed Form faxed to [facility]. Jeana Jackman RN Allergies As of Date: 05/23/2024 (No Known Allergies) Date Reviewed: 03/25/2024 Reviewed by: Corin Etienne MA - Fully Assessed Reason for Visit: Patient Update [1234] Prescriptions as of 05/24/2024 - norethindrone (AYGESTIN) 5 mg tablet Take 2 tablets by mouth once daily. - levothyroxine (SYNTHROID) 88 mcg tablet Take 88 mcg by mouth daily before breakfast. Problem List As Of Date: 05/23/2024 (None) Encounter Status:Closed by EMILY SALGADO on 05/24/24 Normal [facility] Vitamin D 1,25-Dihydroxyon 0 05-13-2024 VIT D 1,25 DIHY 35.3 pg/mL Normal 24.8-81.5 [facility] Comment on above: Result Comment: Perf ormed at: [facility] [id number] It Teacher: Azeem Pruett MD, Phone: [phone] Performed By: #### L 501.9520 #### [facility] [address] [place], [place], [id number] Lipid Profileon 05-11-2024 Cholesterol [Mass/Vol] 150 mg/dL Normal [facility] Comment on above: Order Comment: Order Date: 11/09/23 Order Info: [id number] - LIPID Order Info: 3 - TSH Order Info: [id number] - T4F Result Comment: <200 mg/dL Desirable 200-240 mg/dL Borderline >240 mg/dL High Risk Performed By: #### L 500.4100, L501.9520 #### [facility] [address] [place], [place], [address] Cholesterol in HDL [Mass/Vol] 63 mg/dL Normal [facility] Comment on above: Order Comment: Order Date: 11/09/23 Order Info: [id number] - LIPID Order Info: 3 - TSH Order Info: 3024-04 - T4F Result Comment: The drugs N-Acetylcysteine and Metamizole may falsely depress this assay. Reference Range HDL <40 mg/dL Low HDL Cholesterol HDL >or= 60 mg/dL High HDL Cholesterol Performed By: #### L 500.4100, L501.9520 #### [facility] [address] [place], [address] Cholesterol in LDL [Mass/Vol] 64 mg/dL Normal 0-130 [facility] Comment on above: Order Comment: Order Date: 11/09/23 Order Info: [id number] - LIPID Order Info: 3 - TSH Order Info: 7 - T4F Performed By: #### L 500.4100, L501.9520 #### [facility] [address] [place], [address] Cholesterol in VLDL [Mass/Vol] 23 mg/dL Normal 5-40 [facility] Comment on above: Order Comment: Order Date: 11/09/23 Order Info: [id number] - LIPID Order Info: [id number] - TSH Order Info: 7 - T4F Performed By: #### L 500.4100, L501.9520 #### [facility] [address] [place], [address] Triglyceride [Mass/Vol] 115 mg/dL Normal [facility] Comment on above: Order Comment: Order Date: 11/09/23 Order Info: [id number] - LIPID Order Info: [id number] - TSH Order Info: 3024-04 - T4F Result Comment: The drugs N-Acetylcysteine and Metamizole may falsely depress this assay. Serum Triglycerides Reference Interval Normal <150 mg/dL Borderline high 150 - 199 mg/dL High 200 - 499 mg/dL Very High > or = 500 mg/dL Performed By: #### L 500.4100, L501.9520 #### [facility] [address] [place], [address] T4 Free Directon 05-11-2024 T4 FREE DIRECT 1.29 ng/dL Normal 0.76-1.46 [facility] Comment on above: Order Comment: Order Date: 11/09/23 Order Info: [id number] - LIPID Order Info: 3 - TSH Order Info: 3027 - T4F Performed By: #### L 506.0400 #### [facility] [address] [place], [address] Thyroid Stim Hormone (TSH)on 05-11-2024 TSH 2.43 uIU/mL Normal 0.358-3.74 [facility] Comment on above: Order Comment: Order Date: 11/09/23 Order Info: [id number] - LIPID Order Info: [id number] - TSH Order Info: 3024-7 - T4F Performed By: #### L 500.4100, L501.9520 #### [facility] [address] [place], [address] CNOVon 03-25-2024 CNOV Office Visit (OBGYWM ) ALISA CORONEL ([id number]) 1970 F Date Time Provider Department 03/25/24 10:10 AM MITZI GERARD OBGYWM During your visit today, we recorded the following information about you: Blood pressure Weight 122/80 109.3 kg Mitzi Gerard MD 03/25/2024 5:53 PM Signed SUBJECTIVE: 53 year old female presents for 6 week post-op exam. Doing well without complaints. No fever, no issues with BM or voiding. Objective: Incision: Healed Abdomen: Soft, Non-tender, and No palpable masses Genitalia: Normal external genitalia, Urethral meatus normal, Bladder nontender, normal vagina and normal vaginal tone, normal adnexa without masses or tenderness, perineum WNL, and ? Small area of cervix noted vs cuff Impression: Post-Op Exam Plan: Return to office annual exam Continue with routine pap and hpv . Recheck pathology- appears cervix entirely noted in specimen on pathology report- will recheck next year at annual exam, possible just way the tissue was healing it appear to be small stump of cervix. I have reviewed and updated past medical and surgical history, medications and allergies. Mitzi Blanco MD Allergies As of Date: 03/25/2024 (No Known Allergies) Date Reviewed: 03/25/2024 Reviewed by: Corin Etienne MA - Fully Assessed Reason for Visit: Post-Op Visit [1236] Primary Visit Diagnosis:Post-operativ e state [Z98.890] Prescriptions as of 03/25/2024 - norethindrone (AYGESTIN) 5 mg tablet Take 2 tablets by mouth once daily. - levothyroxine (SYNTHROID) 88 mcg tablet Take 88 mcg by mouth daily before breakfast. Problem List As Of Date: 03/25/2024 (None) Encounter Status:Closed by MITZI GREENFIELD on 03/25/24 [facility] CNOVon 02-26-2024 CNOV Office Visit (OBGYWM ) ALISA CORONEL ([id number]) 1970 F Date Time Provider Department 02/26/24 8:10 AM MITZI GERARD OBGYWM During your visit today, we recorded the following information about you: Blood pressure Weight 136/84 108 kg Mitzi Gerard MD 02/26/2024 8:21 AM Signed SUBJECTIVE: 53 year old female presents for 2 week post-op exam. Doing well, no fever, no vaginal bleeding, urinating w/o difficulty. BMs w/o difficulty. Pt reports not taking anything for pain. OBJECTIVE: Incision: Dry and intact, without redness. Small ecchymosis superior to incision. Abdomen: Soft, Non-tender, and No palpable masses PLAN: RTO for 6 week check Restrictions reviewed Benign pathology reviewed I have reviewed and updated past medical and surgical history, medications and allergies. Mitzi Blanco MD Allergies As of Date: 02/26/2024 (No Known Allergies) Date Reviewed: 02/26/2024 Reviewed by: Corin Etienne MA - Fully Assessed Reason for Visit: Post-Op Visit [1236] Primary Visit Diagnosis:Post-operativ e state [Z98.890] Prescriptions as of 02/26/2024 - norethindrone (AYGESTIN) 5 mg tablet Take 2 tablets by mouth once daily. - levothyroxine (SYNTHROID) 88 mcg tablet Take 88 mcg by mouth daily before breakfast. Problem List As Of Date: 02/26/2024 (None) Encounter Status:Closed by MITZI GREENFIELD on 02/26/24 [facility] 02-17-2024 CNPN Telephone (OBGYWM) ALISA CORONEL ([id number]) 1970 F Date Time Provider Department 02/17/24 MITZI GERARD OBGYWM During your visit today, we recorded the following information about you: Mitzi Gerard MD 02/17/2024 8:13 AM Signed Please notify patient that her pathology from [facility], O is benign. She can take her dressing off tomorrow. So long as no concerns I will see her as scheduled at post op check next week. Viola Tony RN 02/17/2024 8:53 AM Signed Left message for patient to call office. [place] Jane Trisha, RN 02/17/2024 9:54 AM Signed Patient notified. She has no concerns at this time. Emily Salgado RN Allergies As of Date: 02/17/2024 (No Known Allergies) Date Reviewed: 01/26/2024 Reviewed by: Corin Etienne MA - Fully Assessed Reason for Visit: Results [95] Prescriptions as of 02/17/2024 - norethindrone (AYGESTIN) 5 mg tablet Take 2 tablets by mouth once daily. - levothyroxine (SYNTHROID) 88 mcg tablet Take 88 mcg by mouth daily before breakfast. Problem List As Of Date: 02/17/2024 (None) Encounter Status:Closed by EMILY SALGADO on 02/17/24 Normal [facility] Basic Metabolic Profile (BMP )on 02-12-2024 BUN/CRE 7.8 RATIO Low 10-20 [facility] Comment on above: Performed By: #### L 500.2500 #### [facility] [address] [place], [address] CA,Total 7.9 mg/dL Low 8.5-10.1 [facility] Comment on above: Performed By: #### L 500.2500 #### [facility] [address] [place], [address] Chloride [Moles/Vol] 109 mmol/L High 98-107 [facility] Comment on above: Performed By: #### L 500.2500 #### [facility] [address] [place], [address] CO2 [Moles/Vol] 25.0 mmol/L Normal 21.0-32.0 [facility] Comment on above: Performed By: #### L 500.2500 #### [facility] [address] [place], [address] Creatinine [Mass/Vol] 1.03 mg/dL High 0.55-1.02 [facility] Comment on above: Result Comment: The validity of the calculated GFR GFRAA in patients over 70 years has not been determined. Clinical correlation is essential. Performed By: #### L 500.2500 #### [facility] [address] [place], [address] ECRCL 77.64 ml/min Normal [facility] Comment on above: Performed By: #### L 500.2500 #### [facility] [address] [place], [address] EST GFR - AA 72 mL/min Normal >60 [facility] Comment on above: Result Comment: Afri can Algerian GFR Calc Performed By: #### L 500.2500 #### [facility] [address] [place], [address] GAP 5 Normal 5-15 [facility] Comment on above: Performed By: #### L 500.2500 #### [facility] [address] [place], [address] GFR/1.73 sq M.predicted among non-blacks MDRD (S/P/Bld) [Vol rate/Area] 60 mL/min/{1.73_m2} Normal >60 [facility] Comment on above: Result Comment: Non- GFR Calc Performed By: #### L 500.2500 #### [facility] [address] [place], [address] Glucose [Mass/Vol] 113 mg/dL High 74-106 [facility] Comment on above: Result Comment: Fast ing Glucose result from 100 to 125 mg/dL suggests IMPAIRED HOMEOSTASIS per A.D.A. criteria. Performed By: #### L 500.2500 #### [facility] [address] [place], [address] Potassium [Moles/Vol] 4.1 mmol/L Normal 3.5-5.1 [facility] Comment on above: Performed By: #### L 500.2500 #### [facility] [address] [place], [address] Sodium [Moles/Vol] 139 mmol/L Normal 136-145 [facility] Comment on above: Performed By: #### L 500.2500 #### [facility] [address] [place], [address] Urea nitrogen [Mass/Vol] 8 mg/dL Normal 7-18 [facility] Comment on above: Performed By: #### L 500.2500 #### [facility] [address] [place], [address] Basophil percentageOrdered B y: Rafael ArellanorizwanlouisNicko on 02-12-2024 Chloride [Moles/Vol] 109 mmol/L 98-107 [facility] Glucose [Mass/Vol] 113 mg/dL 74-106 [facility] Comment on above: Fasting Glucose resu lt from 100 to 125 mg/dL suggests IMPAIRED HOMEOSTASIS per A.D.A. criteria. Hemoglobin (Bld) [Mass/Vol] 13.6 g/dL 12.0-15.0 [facility] Potassium [Moles/Vol] 4.1 mmol/L 3.5-5.1 [facility] Sodium [Moles/Vol] 139 mmol/L 136-145 [facility] WBC (Bld) [#/Vol] 16.1 10*3/uL 4.4-11.0 [facility] CBC-Complete Blood Cnt No Di ffon 02-12-2024 Erythrocyte distribution width (RBC) [Ratio] 15.4 % High 11.6-14.6 [facility] Comment on above: Performed By: #### L 501.9520, L501.14636, L506.0400 #### [facility] [address] [place], [address] Hematocrit (Bld) [Volume fraction] 43.0 % Normal 37-47 [facility] Comment on above: Performed By: #### L 501.9520, L501.31318, L506.0400 #### [facility] [address] [place], [address] Hemoglobin (Bld) [Mass/Vol] 13.6 g/dL Normal 12.0-15.0 [facility] Comment on above: Performed By: #### L 501.9520, L501.33237, L506.0400 #### [facility] [address] [place], [address] MCH (RBC) [Entitic mass] 27.7 pg Normal 27.0-32.0 [facility] Comment on above: Performed By: #### L 501.9520, L501.43869, L506.0400 #### [facility] [address] [place], [address] MCHC (RBC) [Mass/Vol] 31.6 g/dL Low 32-36 [facility] Comment on above: Performed By: #### L 501.9520, L501.62590, L506.0400 #### [facility] [address] [place], [address] MCV (RBC) [Entitic vol] 87.6 fL Normal 81-99 [facility] Comment on above: Performed By: #### L 501.9520, L501.53229, L506.0400 #### [facility] [address] [place], [address] Platelet mean volume (Bld) [Entitic vol] 11.2 fL Normal 6.2-12.0 [facility] Comment on above: Performed By: #### L 501.9520, L501.14136, L506.0400 #### [facility] [address] [place], [address] Platelets (Bld) [#/Vol] 373 10*3/uL Normal 150-450 [facility] Comment on above: Performed By: #### L 501.9520, L501.99836, L506.0400 #### [facility] [address] [place], [address] RBC (Bld) [#/Vol] 4.91 10*6/uL Normal 4.2-5.4 [facility] Comment on above: Performed By: #### L 501.9520, L501.40400, L506.0400 #### [facility] [address] [place], [address] RDW SD 49.3 fl High 35.1-43.9 [facility] Comment on above: Performed By: #### L 501.9520, L501.50352, L506.0400 #### [facility] [address] [place], [address] WBC (Bld) [#/Vol] 16.1 10*3/uL High 4.4-11.0 [facility] Comment on above: Performed By: #### L 501.9520, L501.54060, L506.0400 #### [facility] [address] [place], [address] CNPNon 02-12-2024 CNPN Telephone (OBGYWM) ALISA CORONEL ([id number]) 1970 F Date Time Provider Department 02/12/24 MITZI GERARDDanish During your visit today, we recorded the following information about you: Emily Salgado RN 02/12/2024 1:30 PM Signed PSS had patient on the phone stating she had a missed call from office. She had ALICE, bilateral salpingectomy, cysto done yesterday. Patient thought could be Dr. Greenfield directly. Advised she has left for the day and a message will be sent to her to see if it was her. Aware she returns on Thursday. [place]NE Mathew Deidre, MD 02/12/2024 7:10 PM Signed I did call patient directly twice, one VM left to check and see how she was feeling. I will try her back at later time. Emily Salgado RN 02/16/2024 1:27 PM Signed See 02/15/24 [facility] message encounter. Emily Salgado RN Allergies As of Date: 02/12/2024 (No Known Allergies) Date Reviewed: 01/26/2024 Reviewed by: Corin Etienne MA - Fully Assessed Reason for Visit: Post Op [174] Prescriptions as of 02/16/2024 - norethindrone (AYGESTIN) 5 mg tablet Take 2 tablets by mouth once daily. - levothyroxine (SYNTHROID) 88 mcg tablet Take 88 mcg by mouth daily before breakfast. Problem List As Of Date: 02/12/2024 (None) Encounter Status:Closed by EMILY SALGADO on 02/16/24 Normal [facility] Determination of erythrocyte mean corpuscular volume (MCV)Ordered By: Rafael Blanco on 02-12-2024 MCV (RBC) [Entitic vol] 87.6 fL 81-99 [facility] Discharge Instructionon 01-18 Discharge Instruction [facility] Medical Records Department [address] [place] [address] Instructions for Home/Discharge Instructions 02/12/24 0853 MR#: [id number] Acct: [id number] Name: ALISA CORONEL Rep #: [id number] : 1970 53 From: Shalini Montero DO PCP: Dr. Clive Baltazar MD Status:ADM IN Discharge Instructions Diet Discharge Diet: No restrictions Activity Discharge Activity: May Not Drive and May Shower May resume sexual activity in: 6 weeks (nothing in the vagina for 6 weeks) Ice area for (Minutes): 15 Weight Bearing Status: Weight bearing as tolerated Lifting Restrictions: nothing greater than 10 pounds Dressing / Incision Call your doctor if your incision/area has: Continuous Slow Oozing, Sudden Increased Bleeding, Increased Pain/ Swelling, Increased Redness, Foul Smelling Discharge and Swelling at the incision site Call your doctor if you observe: Fever of 101 or Higher, Coldness, Increased Pain, Numbness or Tingling, Change in Color, Inability to urinate, Inability to have a bowel movement, Using more than 1 pad per hour, Shortness of breath, Dizziness, Fainting spells, Swelling in the ankles, Chest pain, Prolonged hiccupping, Increased palpitations (irregular heartbeat), Calf discomfort and Uncontrolled pain Suture Line Care: Avoid Pulling/Pushing and Avoid Pinching/Bending Remove Dressing in: 2 days Cleanse incision/area with: Soap Water Follow Up Care Please Follow Up With: Mitzi Greenfield MD When: 1-2 weeks 6 weeks Test Results: Test results from this visit will be discussed in further detail at your follow-up appointment, if applicable. Discharge Plan Admission Admit Date/Time: 02/11/24 07:54 Attending Provider: Mitzi Greenfield Primary Care Provider: Clive Baltazar Instructions Patient Instructions: Abdominal Hysterectomy Dc Discharge Orders/Prescriptions Prescriptions: Continued levothyroxine 75 mcg capsule 88 mcg PO DAILY Discontinued norethindrone (contraceptive) 0.35 mg tablet 5 mg PO BID Patient Comments: TAKE 1 TABLET BY MOUTH EVERY DAY Other Ambulatory Orders: 12 Lead EKG (Routine) Timeframe: 20240202 Location: None Selected Ordered By: Dr. Mitzi Greenfield Referrals / Follow Up: Clive Baltazar MD [Primary Care Provider] - Disposition Disposition (needs filled in before D/C Order can be placed): Home, Self Care 02/12/[address] CC: Dr. Clive Baltazar MD Signed Normal [facility] Erythrocyte distribution wid th ratioOrdered By: Rafael Blanco on 02-12-2024 Erythrocyte distribution width (RBC) [Ratio] 15.4 % 11.6-14.6 [facility] Erythrocyte distribution wid th standard deviationOrdered By: Rafael Blanco on 02-12-2024 Erythrocyte distribution width (RBC) [Entitic vol] 49.3 fL 35.1-43.9 [facility] Hematocrit Auto (Bld) [Volum e fraction]Ordered By: Rafael Blanco on 02-12-2024 Hematocrit (Bld) [Volume fraction] 43.0 % 37-47 [facility] Laboratory - Chemistry and C hemistry - challengeOrdered By: Rafael Greenfield on 02-12-2024 CO2 [Moles/Vol] 25.0 mmol/L 21.0-32.0 [facility] Urea nitrogen/Creatinine [Mass ratio] 7.8 mg/mg 10-20 [facility] Laboratory - Hematology and Cell countsOrdered By: Rafael Blanco on 02-12-2024 MCH (RBC) [Entitic mass] 27.7 pg 27.0-32.0 [facility] MCHC (RBC) [Mass/Vol] 31.6 g/dL 32-36 [facility] Platelet mean volume (Bld) [Entitic vol] 11.2 fL 6.2-12.0 [facility] Platelets (Bld) [#/Vol] 373 10*3/uL 150-450 [facility] No Panel InformationOrdered By: Rafael Blanco on 02-12-2024 Estimated Creatinine Clearance Calc 77.64 ml/min [facility] Estimated GFR (MDRD) Amer 72 mL/min >60 [facility] Comment on above: GFR Calc Estimated GFR (MDRD) Non-Af Amer 60 mL/min >60 [facility] Comment on above: Non- GFR Calc RBC Auto (Bld) [#/Vol]Ordere d By: Rafael Blanco on 02-12-2024 RBC (Bld) [#/Vol] 4.91 10*6/uL 4.2-5.4 [facility] Serum or plasma calcium bernardo urement (mass/volume)Ordered By: Rafael Blanco on 02-12-2024 Calcium [Mass/Vol] 7.9 mg/dL 8.5-10.1 [facility] Serum or plasma creatinine m easurement (mass/volume)Ordered By: Rafael Blanco on 02-12-2024 Creatinine [Mass/Vol] 1.03 mg/dL 0.55-1.02 [facility] Comment on above: The validity of the calculated GFR & GFRAA in patients over 70 years has not been determined. Clinical correlation is essential. Serum or plasma urea nitroge n measurement (mass/volume)Ordered By: Rafael Blanco on 02-12-2024 Urea nitrogen [Mass/Vol] 8 mg/dL 7-18 [facility] Thin prep Papanicolaou smear with manual screeningOrdered By: Rafael Blanco on 02-12-2024 Thin prep Papanicolaou smear with manual screening 5 5-15 [facility] Bedside Glucoseon 02-11-2024 FINGERSTICK GLU 120 mg/dL High 74-106 [facility] Comment on above: Result Comment: KATINA BURTON OF PATIENT CARE PER NURSING PROTOCOL Performed By: #### L 501.080 #### [facility] [address] [place], [address] Laboratory - Chemistry and C hemistry - challengeOrdered By: Rafael Greenfield on 02-11-2024 HCG ( test) Ql (U) Negative [facility] Comment on above: Very dilute urine sp ecimens, as indicated by a low specificgravity, may not contain career representative levels of hCG. If is still suspected, a first morning urinespecimen should be collected 48 hours later and tested. Operative Reporton Operative Report [facility] Medical Records Department [address] [place] [address] Operative Report 02/11/24 1307 MR#: [id number] Acct: [id number] Name: ALISA CORONEL Rep #: [id number] : 1970 53 From: Gavi Schulte MD PCP: Dr. Clive Baltazar MD Status:ADM IN Location: [place] [address] Report of Operation Date of Procedure: 02/11/24 Pre-Operative Diagnosis: Urethral trauma Post-Operative Diagnosis: Same Surgery/Procedure Performed:: Cystourethroscopy Surgeon: Gavi Schulte Type of Anesthesia: General Description of Procedure: The patient is a 53-year-old female who was being prepped for a hysterectomy when the urethral Curiel was inserted and blood began pouring out around the catheter. During the procedure, a larger Curiel catheter was inserted and vaginal packing was placed. At the conclusion of the case, the packing was removed and the bleeding continued from around the Curiel catheter. I was called for further evaluation and management. The patient was in dorsolithotomy position and was prepped and draped in usual sterile fashion. There was a stitch at the 12 o'clock position of the urethral meatus. There was slow oozing from the urethra. The cystoscope was inserted through the urethra under direct visualization into the urinary bladder. Using the 70 degree lens, the entire bladder was visualized finding no evidence of mass, erythema, ulceration, trauma or foreign body. The 12 degree lens was then used for visualization of the urethra. Curiel trauma was identified on the patient's right side of the urethra approximately 1 centimeter distal to the bladder neck. There was no other abnormality identified. At this time the cystoscope was removed and a 26 Curiel catheter was placed to straight drain. Packing was reinserted into the vagina. The patient was then awakened and taken to the recovery room in good condition. There were no complications during the procedure. Grafts/Implants Used: None Complications None Admit VTE Documentation VTE Present on Admission: Yes VTE Mechan Device Prophylaxis: SCD's VTE Pharm Prophylaxis ordered?: No Reason prophylaxis not ordered:: Treatment Not Indicated 02/11/24 1310 Cosigner Signature (if applicable): CC: Rafael Blanco; Dr. Clive Baltazar MD; Dr. Gavi Schulte MD Signed Normal [facility] Operative Report [facility] Medical Records Department [address] [place] [address] Operative Report 02/11/24 1225 MR#: [id number] Acct: [id number] Name: ALISA CORONEL Rep #: [id number] : 1970 53 From: Mitzi Greenfield MD PCP: Dr. Clive Baltazar MD Status:DIS IN Location: DC3 MT600-3 Report of Operation Date of Procedure: 02/11/24 Pre-Operative Diagnosis: AUB, Fibroid uterus, endometrial Hyperplasia Post-Operative Diagnosis: Same, urethral laceration Surgery/Procedure Performed:: ALICE, BSO, cysto Description of Surgical Findings:: Enlarged Fibroid uterus, 18 week size, normal tubes and ovaries Surgeon: Mitzi Greenfield rattlesnake farmer: Nieves Suh Type of Anesthesia: General and Local Special Medications: 0.5% marcaine, hemoblast Specimen's removed: uterus, Cervix, bilateral fallopian tubes and ovaries Drains: curiel Estimated Blood Loss (mL): 50 Fluids Replaced: 1500cc Description of Procedure: After informed consent was obtained the patient was taken the operating room she was placed in the supine position. Curiel catheter was placed under sterile technique see notation below under complication. Abdominal and vaginal preps were performed. Patient was draped in the normal sterile fashion. At this time Pfannenstiel incision was made carried down to the underlying layer of the fascia. Fascia was then grasped with 2 straight Meron clamps in the inferior aspect the rectus muscle dissected off sharply. This was then turned to superior aspect of the fascial edge was again grasped with 2 [place] clamps tented up and the rectus muscle dissected off sharply. At this time the rectus muscles were midline bluntly. Peritoneum was entered bluntly. At this time the uterus was palpated shifted more to the right approximately 18 week size uterus at this time the skin incision was extended to allow delivery of the uterus through the incision. The uterus was brought up through the incision. Nikhil retractor placed. Round ligaments on either side were clamped Ligasure used to incise and divide broad ligament. Ligasure was used to clamp the IP ligament on Left. The visualization on right was poor- so Uteroovarian ligament clamped and sealed and ligated with ligasure. the bladder flap was taken down. Next both uterine arteries on right and left were skeletonized with Metzenbaum scissor and clamped, sealed and ligated with ligasure. This was continued down until the cervical vaginal junction. At this time Sandra's were placed just below the cervix. Specimen was dissected off using Jerome scissors. Specimen was removed and sent to pathology for evaluation. At this time the cuff was suture transfixed using 0 Vicryl. Multiple [id number] sutures then placed in the midline. Good hemostasis was appreciated. At this time further evaluation of the left IP ligament was performed. The right Ovary and tube were grasped with Denver and the IP ligament was sealed and ligated with ligasure. Irrigation of pelvis performed. At this time hemoblast was placed over the cuff and bilateral pedicles. At this time then all laps were removed count was correct. The Peritoneum was grasped with Mima. The peritoneum was reapproximated using #2 Vicryl suture in a running fashion. Next the fascia was reapproximated using #1 PDS in a running fashion. The subcutaneous layer was irrigated and closed using 2 -0 vicryl suture. And the skin was closed using 3-0 Monocryl on a David needle. At this time once closure was complete dressing was applied. The patient was redraped and prepped for cystoscopy. Was placed in [facility]. The Curiel catheter was removed. Please see urology note for dictation. vaginal sweep negative. instrument and lap count correct x 2. vaginal packing placed by Urology 26 greek catheter placed- will remove tomorrow morning. Grafts/Implants Used: none Procedure Start Time: 11:25 Procedure Stop Time: 12:59 Complications Prior to start of procedure nursing placed curiel during vaginal prep it inadvertently got dislodge and bleeding from urethra was noted. - urology was made aware- 24 greek catheter was placed. 2 sponges for pressure placed in vagina during case betadine. 3-0 rapdie suture placed on tiny laceration noted superior and adjacent to urethra. After case was complete sponges were removed from vagina and active brisk bleeding was noted around cathter coming from urethra- Urology DR. Schulte was called for formal evaluation. Admit VTE Documentation VTE Present on Admission: Yes VTE Mechan Device Prophylaxis: SCD's VTE Pharm Prophylaxis ordered?: Yes 02/11/24 1300 Cosigner Signature (if applicable): CC: Rafael Blanco; Dr. Clive Baltazar MD Signed ADDENDUM by Rafael Blanco on 02/11/24 at 1310 Addendum EBL 100cc with Laceration site from Urethra (more content not included)... Normal [facility] ,Urineon 02-11-2024 Beta HCG ( test) Ql (U) Negative Normal [facility] Comment on above: Result Comment: Very dilute urine specimens, as indicated by a low specific gravity, may not contain career representative levels of hCG. If is still suspected, a first morning urine specimen should be collected 48 hours later and tested. Performed By: #### L 400.7600 #### [facility] [address] [place], [address] Surgery Specimen Level Von 0 02-11-2024 Surgery Specimen Level V Patient Age/Sex Location Account Attending Physician ALISA CORONEL 53/F MS3 [id number] Dr. Mitzi Blanco Specimen: [id number] Received: 02/11/24 Status: PARTHA Gama Num: [id number] Spec Type: HYSTERECT Subm Dr: Dr. Mitzi Blanco, M HEADER OPERATION: ERAS, hysterectomy, ALICE, bilateral salpingectomy- oophorectomy PRE-OP DIAGNOSIS: Abnormal uterine bleeding, fibroid uterus, endometrial hyperplasia TISSUE SUBMITTED: Uterus, cervix, bilateral fallopian tubes, bilateral ovaries MICROSCOPIC DIAGNOSIS Uterus, cervix, bilateral fallopian tubes and bilateral ovaries, hysterectomy and salpingectomy- oophorectomy: Cervix - No pathologic diagnosis. Endometrium - Consistent with exogenous hormone effects. - Negative for hyperplasia. Myometrium - Diffused adenomyosis. - Intramural and subserosal leiomyomas (largest measuring 2.5cm in greatest dimension) Bilateral fallopian tubes- No pathologic diagnosis. One ovary- Not pathologic diagnosis. Second ovary- Simple benign epithelial cyst (0.5cm in greatest dimension). SJ/mr 02/12/24 COMMENT Ectocervical epithelium is not seen the sections of the cervix examined. MICROSCOPIC DESCRIPTION Slides are reviewed. GROSS DESCRIPTION Received in fixative is one container labeled with the patient's name and designated uterus, cervix, bilateral fallopian tubes and ovaries. The specimen consists of a hysterectomy specimen consisting of uterus, cervix and detached bilateral fallopian tubes and ovaries. The uterus with cervix weighs 760 gm and measures 17.0 x 15.0 x 10.0 cm. The serosal surface is lu glistening. A few subserosal nodules are noted. The ectocervical mucosa is only present focally. The external os is circular in contour. The endocervical canal measures 4.0 cm in length and the endocervical mucosa is lu glistening and unremarkable. Triangular endometrial cavity measures 7.0cm in length and up to 5.0cm width. The endometrium is lu glistening without any mass lesions and measures up to 0.2cm in thickness. Sections of the uterine wall reveal multiple nodules with intramural and subserosal location. The largest mass measures 2.5cm in greatest dimension. Sections of these masses reveal lu whorled cut surfaces without areas of hemorrhage, necrosis or cystic degeneration. Section of the uterine wall reveal diffusely thickened and trabeculated cut surfaces, suspicious for adenomyosis and measures up to 6.0cm in thickness. Fallopian tubes Patient Age/Sex Location Account Attending Physician ALISA CORONEL 53/F MS3 [id number] Dr. Mitzi Blanco and ovaries are not identified as right or left. One of the fallopian tubes measures 3.5cm in length and 0.7cm in diameter. Fimbrial end is identified. Sections reveal unremarkable cut surfaces. Adjacent ovary measures 2.5 x 1.5 x 1.0cm. Sections reveal unremarkable cut surfaces. Second fallopian tube is similar appearance to the first one and measures 4.5cm in length and 0.5cm in diameter. Adjacent second ovary measures 2.5 x 1.5 x 1.0cm. Sections reveal a cyst filled with clear fluid measuring 0.5cm in greatest dimension. General Engineer sections are submitted in 15 cassettes as follows: 1 - anterior cervix, 2 - posterior cervix, 3 -7 - anterior uterine wall, 8-10 - posterior uterine wall (almost entire endometrium is submitted), 11- Largest nodular mass, 12- smaller intramural and subserosal nodular masses, 13- one fallopian tube and ovary, 14-15- Second fallopian tube and adjacent ovary (14- fallopian tube and ovary, 15- more section second ovary) VERNON marvin 02/11/24 TC:5 CPT: 31861 Patient Age/Sex Location Account Attending Physician ALISA CORONEL 53/F MS3 [id number] Dr. Mitzi Blanco Signed (signature on file) Dr. Carlos Dover MD 02/12/24 1353 Normal [facility] Comment on above: Performed By: #### L 501.9520 #### [facility] Laboratory [address] [place] [place], [address] Thin prep Papanicolaou smear with manual screeningOrdered By: Rafael Blanco on 02-11-2024 Thin prep Papanicolaou smear with manual screening 120 mg/dL 74-106 [facility] Comment on above: MANAGEMENT OF PATIEN T CARE PER NURSING PROTOCOL H AND P Exam - OB/GYNon 01-17 H&P Exam - SALAD MAKER [facility] Medical Records Department [address] [place] [address] H P Exam - SALAD MAKER 02/04/24 1310 MR#: [id number] Acct: [id number] Name: ALISA CORONEL Rep #: [id number] : 1970 53 From: Mitzi Greenfield MD PCP: Dr. Clive Baltazar MD Status:ADM IN Location: [place] [address] History and Physical Date of Admission: 02/11/24 Pre-Op History and Physical ??? HPI: The patient is a 53 year old female presenting for discussion regarding surgical intervention for AUB, fibroid uterus and endometrial hyperplasia. Pt currently on Aygestin to control bleeding- has h/o endometrial hyperplasia and large fibroids. Pt feeling pelvic pressure and pain- and has consistent bleeding. Pt would like surgical intervention. Pt declines consults with [facility] and understands there is small risk of malignancy with final pathology which could result in need for secondary surgery. ??? pre-operative visit. She is scheduled for ALICE with BSO, for AUB, fibroid uterus, Endometrial hyperplasia on 02/11/24. Procedure discussed along with risks, benefits and complications. Other alternatives discussed for management. Consent form signed? Yes. ? PAST MEDICAL HISTORY PAST MEDICAL HISTORY Diagnosis Date ??? Abnormal uterine bleeding (AUB) ? Hyperplasia of endometrium determined by biopsy ? Hypothyroidism ? PAST SURGICAL HISTORY PAST SURGICAL HISTORY Procedure Laterality Date ??? COLONOSCOPY SCREENING ??? 12/22/2022 ??? WNL repeat in 10Yrs. done at [facility] ??? PAST SURGICAL HISTORY OF ??? 06/08/2023 ??? hysteroscopy D C at [facility] per Dr Bray ? CURRENT MEDICATIONS Current Outpatient Medications Medication Sig Dispense Refill ??? norethindrone (AYGESTIN) 5 mg tablet Take 2 tablets by mouth once daily. 180 tablet 1 ??? levothyroxine (SYNTHROID) 88 mcg tablet Take 88 mcg by mouth daily before breakfast. ? No current facility-administered medications for this visit. ? ALLERGIES: Patient has no known allergies. ??? PERSONAL HISTORY: SOCIAL HISTORY Social History ??? Tobacco Use ??? Smoking status: Never ??? Smokeless tobacco: Never Vaping Use ??? Vaping Use: Never used Substance Use Topics ??? Alcohol use: Never ??? Drug use: Never ??? FAMILY HISTORY: FAMILY HISTORY FAMILY HISTORY Problem Relation Age of Onset ??? other (neoplasm of uterus) Mother ? Kidney Disease Mother ? Hypertension Mother ? Mental illness Mother ? Prostate Cancer Father ? Hypertension Father ? other (muscular disorder) Father ? Thyroid Sister ? Depression Sister ? Suicide / Suicidal Behaviors Brother ? Depression Brother ? Heart disease Maternal Grandfather ? Stroke Maternal Grandfather ? Heart Attack Paternal Grandfather ? REVIEW OF SYMPTOMS: negative except as noted above PHYSICAL EXAMINATION: ??? VITALS: Blood pressure 138/86, height 5' 4 (1.626 m), weight 249 lb (112.9 kg), last menstrual period 05/21/2023. ??? GENERAL: The patient is well nourished, well hydrated in no acute distress. , The patient is oriented to time, place, and person. NECK: full range of motion LUNGS: Clear to auscultation bilaterally. no wheezes, rhonchi or rales HEART: Regular rate and rhythm, Normal heart sounds, and No murmurs or gallops ??? IMPRESSION: 53yo female with large fibroid uterus, endometrial hyperplasia on progesterone, AUB ??? PLAN: ALICE, BSO ??? Pt has been counseled on risks/benefits and alternatives of surgery including but not limited to anesthesia, bleeding, infection, injury to pelvic structures including bowel, bladder, ureters and vessels. Pt wishes to proceed with surgery at this time. Pt counseled on retention of ovaries- declines and would like removal at time of surgery. We reviewed surgical menopause and implications for HRT if desired. Risk of blood transfusion reviewed. ??? Pre and post op instructions reviewed ??? I have reviewed and updated past medical and surgical history, medications and allergies Mitzi Greenfield MD Office Visit on 01/26/2024 Office Visit on 01/26/2024 Note shared with patient Additional Documentation Vitals: BP 138/86 Ht 5' 4 (1.626 m) Wt 249 lb (112.9 kg) LMP 05/21/2023 BMI 42.74 kg/m??? BSA 2.26 m??? Flowsheets: Patient-Reported Data, [facility] PDMP NARXCARE SCORES, Vital Signs Encounter Info: Billing Info, History, Allergies, Detailed Report 02/04/24 1310 Cosigner Signature (if applicable): CC: M Dr. Mitzi Blanco; Dr. Clive Baltazar MD Signed ADDENDUM by M Dr. Mitzi Blanco on 02/11/24 at 1000 Addendum I have examined (more content not included)... Normal [facility] 12 Lead EKGon 02-02-2024 12 Lead EKG [facility] Cardiovascular Services [address] [place] [address] 12 Lead EKG 02/02/24 0856 MR#: [id number] Acct: [id number] Name: ALISA CORONEL Rep #: [id number] : 1970 53 From: Chandra Hankins MD Attending Dr: Rafael García Sta tus: PRE IN Ordering Dr: Mitzi Greenfield MD Date: 02/02/24 Location: [facility] Sex: F C Admitted: Test Reason : PREOP Blood Pressure : / mmHG Vent. Rate : 081 BPM Atrial Rate : 081 BPM P-R Int : 138 ms QRS Dur : 082 ms QT Int : 362 ms P-R-T Axes : 063 048 007 degrees QTc Int : 420 ms Normal sinus rhythm Nonspecific T wave abnormality Abnormal ECG Confirmed by CHANDRA HANKINS MD ([id number]), purchase request editor ANDREZ POWELL ([id number]) on 02/03/2024 6:49:12 AM Referred By: BIJAN GREENFIELD Confirmed By:CHANDRA HANKINS MD 02/03/24 0649 Date Chandra Hankins MD CC: M Dr. Mitzi Blanco; Dr. Clive Baltazar MD Signed Normal [facility] Basic Metabolic Profile (BMP )on 02-02-2024 BUN/CRE 10.3 RATIO Normal 10-20 [facility] Comment on above: Performed By: #### L 501.9520 #### [facility] [address] [place], [address] CA,Total 8.7 mg/dL Normal 8.5-10.1 [facility] Comment on above: Performed By: #### L 760.2194 #### [facility] Laboratory [address] [place], [address] Chloride [Moles/Vol] 109 mmol/L High 98-107 [facility] Comment on above: Performed By: #### L 356.8254 #### [facility] [address] [place], [address] CO2 [Moles/Vol] 28.0 mmol/L Normal 21.0-32.0 [facility] Comment on above: Performed By: #### L 174.2998 #### [facility] [address] [place], [address] Creatinine [Mass/Vol] 1.07 mg/dL High 0.55-1.02 [facility] Comment on above: Result Comment: The validity of the calculated GFR GFRAA in patients over 70 years has not been determined. Clinical correlation is essential. Performed By: #### L 020.3462 #### [facility] [address] [place], [address] EST GFR - AA 69 mL/min Normal >60 [facility] Comment on above: Result Comment: Afri can Algerian GFR Calc Performed By: #### L 465.3189 #### [facility] [address] [place], [address] GAP 4 Low 5-15 [facility] Comment on above: Performed By: #### L 366.9505 #### [facility] [address] [place], [address] GFR/1.73 sq M.predicted among non-blacks MDRD (S/P/Bld) [Vol rate/Area] 57 mL/min/{1.73_m2} Low >60 [facility] Comment on above: Result Comment: Non- GFR Calc Performed By: #### L 501.9520 #### [facility] [address] [place], [address] Glucose [Mass/Vol] 90 mg/dL Normal 74-106 [facility] Comment on above: Performed By: #### L 501.9520 #### [facility] [address] [place], [address] Potassium [Moles/Vol] 3.7 mmol/L Normal 3.5-5.1 [facility] Comment on above: Performed By: #### L 501.9520 #### [facility] [address] [place], [address] Sodium [Moles/Vol] 141 mmol/L Normal 136-145 [facility] Comment on above: Performed By: #### L 501.9520 #### [facility] [address] [place], [address] Urea nitrogen [Mass/Vol] 11 mg/dL Normal 7-18 [facility] Comment on above: Performed By: #### L 501.9520 #### [facility] [address] [place], [address] CBC-Complete Blood Cnt No Di ffon 02-02-2024 Erythrocyte distribution width (RBC) [Ratio] 15.6 % High 11.6-14.6 [facility] Comment on above: Performed By: #### L 501.9520 #### [facility] [address] [place], [address] Hematocrit (Bld) [Volume fraction] 46.0 % Normal 37-47 [facility] Comment on above: Performed By: #### L 501.2920 #### [facility] [address] [place], [address] Hemoglobin (Bld) [Mass/Vol] 14.7 g/dL Normal 12.0-15.0 [facility] Comment on above: Performed By: #### L 684.8980 #### [facility] [address] [place], [address] MCH (RBC) [Entitic mass] 27.8 pg Normal 27.0-32.0 [facility] Comment on above: Performed By: #### L 945.9519 #### [facility] [address] [place], [address] MCHC (RBC) [Mass/Vol] 32.0 g/dL Normal 32-36 [facility] Comment on above: Performed By: #### L 116.5710 #### [facility] [address] [place], [address] MCV (RBC) [Entitic vol] 87.1 fL Normal 81-99 [facility] Comment on above: Performed By: #### L 611.9519 #### [facility] [address] [place], [address] Platelet mean volume (Bld) [Entitic vol] 11.3 fL Normal 6.2-12.0 [facility] Comment on above: Performed By: #### L 920.99 #### [facility] [address] [place], [address] Platelets (Bld) [#/Vol] 385 10*3/uL Normal 150-450 [facility] Comment on above: Performed By: #### L 253.01 #### [facility] [address] [place], [address] RBC (Bld) [#/Vol] 5.28 10*6/uL Normal 4.2-5.4 [facility] Comment on above: Performed By: #### L 099.3490 #### [facility] [address] [place], [address] RDW SD 49.2 fl High 35.1-43.9 [facility] Comment on above: Performed By: #### L 501.9520 #### [facility] [address] [place], [place], [address] WBC (Bld) [#/Vol] 8.7 10*3/uL Normal 4.4-11.0 [facility] Comment on above: Performed By: #### L 501.9520 #### [facility] [address] [place], [address] Laboratory - Chemistry and C hemistry - challengeOrdered By: Rafael Greenfield on 02-02-2024 Magnesium [Mass/Vol] 2.1 mg/dL 1.6-2.6 [facility] Magnesiumon 02-02-2024 Magnesium [Mass/Vol] 2.1 mg/dL Normal 1.6-2.6 [facility] Comment on above: Performed By: #### L 501.9520, L501.17789, L506.0400 #### [facility] [address] [place], [address] Serum or plasma thyroid stim ulating hormone (TSH) measurement (units/volume)Ordered By: Jose Fung on 02-02-2024 TSH Qn 4.68 uIU/mL 0.358-3.74 [facility] Thyroid Stim Hormone (TSH)on 02-02-2024 TSH 4.68 uIU/mL High 0.358-3.74 [facility] Comment on above: Performed By: #### L 501.9520 #### [facility] [address] [place], [address] Free T3on 11-03-2023 Free T3 [Mass/Vol] 2.5 pg/mL Normal 2.18-3.98 [facility] Comment on above: Order Comment: Order Date: 05/05/23 Order Info: 3051-0 - T3F Order Info: 3016-3 - TSH Order Info: 3024-7 - T4F Performed By: #### L 501.9520, L501.40379, L506.0400 #### [facility] [address] [place], [place], [address] No Panel InformationOrdered By: Abran Baltazar on 11-03-2023 Free Triiodothyronine (T3) pg/dL 2.5 pg/mL 2.18-3.98 [facility] Serum or plasma thyroid stim ulating hormone (TSH) measurement (units/volume)Ordered By: Abran Baltazar on 11-03-2023 TSH Qn 2.83 uIU/mL 0.358-3.74 [facility] T4 Free Directon 11-03-2023 T4 FREE DIRECT 1.34 ng/dL Normal 0.76-1.46 [facility] Comment on above: Order Comment: Order Date: 05/05/23 Order Info: 3051-0 - T3F Order Info: 3 - TSH Order Info: 3024-04 - T4F Performed By: #### L 501.9520, L501.80109, L506.0400 #### [facility] [address] [facility] [place], [place], [address] Thin prep Papanicolaou smear with manual screeningOrdered By: Abran Baltazar on 11-03-2023 Thin prep Papanicolaou smear with manual screening 1.34 ng/dL 0.76-1.46 [facility] Thyroid Stim Hormone (TSH)on 11-03-2023 TSH 2.83 uIU/mL Normal 0.358-3.74 [facility] Comment on above: Order Comment: Order Date: 05/05/23 Order Info: 3051-0 - T3F Order Info: 301-3 - TSH Order Info: 7 - T4F Performed By: #### L 501.9520, L501.86426, L506.0400 #### [facility] [address] [place], [place], [address] Laboratory - Chemistry and C hemistry - challengeOrdered By: Chucky Navarro on 06-08-2023 HCG ( test) Ql (U) Negative [facility] Comment on above: Very dilute urine sp ecimens, as indicated by a low specificgravity, may not contain career representative levels of hCG. If is still suspected, a first morning urinespecimen should be collected 48 hours later and tested. Basophil percentageOrdered B y: Guzman Bray on 06-02-2023 WBC (Bld) [#/Vol] 8.5 10*3/uL 4.4-11.0 [facility] Blood erythrocytes count (nu mber/volume)Ordered By: Guzman Bray on 06-02-2023 RBC (Bld) [#/Vol] 4.88 10*6/uL 4.2-5.4 [facility] Blood hemoglobin measurement (mass/volume)Ordered By: Guzman Bray on 06-02-2023 Hemoglobin (Bld) [Mass/Vol] 13.5 g/dL 12.0-15.0 [facility] Blood platelet mean volumeOr dered By: Guzman Bray on 06-02-2023 Platelet mean volume (Bld) [Entitic vol] 11.4 fL 6.2-12.0 [facility] Determination of erythrocyte mean corpuscular volume (MCV)Ordered By: Guzman Bray on 06-02-2023 MCV (RBC) [Entitic vol] 87.9 fL 81-99 [facility] Hematocrit Auto (Bld) [Volum e fraction]Ordered By: Guzman Bray on 06-02-2023 Hematocrit (Bld) [Volume fraction] 42.9 % 37-47 [facility] Laboratory - Hematology and Cell countsOrdered By: Guzman Bray on 06-02-2023 Erythrocyte distribution width (RBC) [Entitic vol] 47.4 fL 35.1-43.9 [facility] Erythrocyte distribution width (RBC) [Ratio] 14.7 % 11.6-14.6 [facility] MCH (RBC) [Entitic mass] 27.7 pg 27.0-32.0 [facility] MCHC Auto (RBC) [Mass/Vol]Or dered By: Guzman Bray on 06-02-2023 MCHC (RBC) [Mass/Vol] 31.5 g/dL 32-36 [facility] Platelets bldOrdered By: Rodolfo Bray on 06-02-2023 Platelets (Bld) [#/Vol] 343 10*3/uL 150-450 [facility] Laboratory - Chemistry and C hemistry - challengeOrdered By: Abran Baltazar on 04-28-2023 Free T4 [Mass/Vol] 1.33 ng/dL 0.76-1.46 [facility] No Panel InformationOrdered By: Abran Baltazar on 04-28-2023 Thyroid Stimulating Hormone (TSH) 3.79 uIU/mL 0.358-3.74 [facility] Laboratory - Chemistry and C hemistry - challengeOrdered By: Dr. Navarro on 12-22-2022 HCG ( test) Ql (U) Negative [facility] Comment on above: Very dilute urine sp ecimens, as indicated by a low specificgravity, may not contain career representative levels of hCG. If is still suspected, a first morning urinespecimen should be collected 48 hours later and tested. Laboratory - Chemistry and C hemistry - challengeOrdered By: Dr. Baltazar on 10-15-2022 Free T4 [Mass/Vol] 1.30 ng/dL 0.76-1.46 [facility] No Panel InformationOrdered By: Dr. Baltazar on 10-15-2022 Thyroid Stimulating Hormone (TSH) 2.14 uIU/mL 0.358-3.74 [facility] Basophil percentageon 2021 Chloride [Moles/Vol] 108 mmol/L 98-107 [facility] Work Phone: Cholesterol [Mass/Vol] 180 mg/dL <200 [facility] Work Phone: [phone] Comment on above: <200 mg/dL Desirable 200-240 mg/dL Borderline >240 mg/dL High Risk Glucose [Mass/Vol] 90 mg/dL 74-106 [facility] Work Phone: [phone] Potassium [Moles/Vol] 3.9 mmol/L 3.5-5.1 [facility] Work Phone: [phone] Sodium [Moles/Vol] 139 mmol/L 136-145 [facility] Work Phone: [phone] Triglyceride [Mass/Vol] 130 mg/dL <199 [facility] Work Phone: Comment on above: The drugs N-Acetylcy steine and Metamizole may falsely depress this assay.Serum Triglycerides Reference Interval Normal <150 mg/dL Borderline high 150 - 199 mg/dL High 200 - 499 mg/dL Very High > or = 500 mg/dL Laboratory - Chemistry and C hemistry - challengeon 04-22-2022 CO2 [Moles/Vol] 26.0 mmol/L 21.0-32.0 [facility] Work Phone: Free T4 [Mass/Vol] 1.19 ng/dL 0.76-1.46 [facility] Work Phone: [phone] Urea nitrogen/Creatinine [Mass ratio] 20.3 mg/mg 10-20 [facility] Work Phone: [phone] No Panel Informationon 04-22 Estimated GFR (MDRD) Amer 99 mL/min >60 [facility] Work Phone: Comment on above: GFR Calc Estimated GFR (MDRD) Non-Af Amer 82 mL/min >60 [facility] Work Phone: Comment on above: Non- GFR Calc Thyroid Stimulating Hormone (TSH) 4.69 uIU/mL 0.358-3.74 [facility] Work Phone: [phone] Serum or plasma calcium bernardo urement (mass/volume)on 04-22-2022 Calcium [Mass/Vol] 8.7 mg/dL 8.5-10.1 [facility] Work Phone: [phone] Serum or plasma cholesterol in HDL measurement (mass/volume)on 04-22-2022 Cholesterol in HDL [Mass/Vol] 64 mg/dL >40 [facility] Work Phone: [phone] Comment on above: The drugs N-Acetylcy steine and Metamizole may falsely depress this assay. Reference Range HDL <40 mg/dL Low HDL Cholesterol HDL >or= 60 mg/dL High HDL Cholesterol Serum or plasma cholesterol in VLDL measurement (mass/volume)on 04-22-2022 Cholesterol in VLDL [Mass/Vol] 26 mg/dL 5-40 [facility] Work Phone: Serum or plasma creatinine m easurement (mass/volume)on 04-22-2022 Creatinine [Mass/Vol] 0.79 mg/dL 0.55-1.02 [facility] Work Phone: Comment on above: The validity of the calculated GFR & GFRAA in patients over 70 years has not been determined. Clinical correlation is essential. Serum or plasma low density lipoprotein (LDL) cholesterol measurement (mass/volume)on 04-22-2022 Cholesterol in LDL [Mass/Vol] 90 mg/dL 0-130 [facility] Work Phone: Serum or plasma urea nitroge n measurement (mass/volume)on 04-22-2022 Urea nitrogen [Mass/Vol] 16 mg/dL 7-18 [facility] Work Phone: Thin prep Papanicolaou smear with manual screeningon 04-22-2022 Thin prep Papanicolaou smear with manual screening 5 5-15 [facility] Work Phone: Vital Signs Date Time Vital Sign Value Performing Clinician Faci lity 01-30-2025 09:20-0400 Body height 162.6 cm Mitziwiliam Greenfield MD Work Phone: [facility] 01-30-2025 09:20-0400 Body mass index (BMI) [Ratio] 43.43 kg/m2 Mitzi Greenfield MD Work Phone: [facility] 01-30-2025 09:20-0400 Body weight 114.76 kg Mitzi Greenfield MD Work Phone: [facility] 01-30-2025 09:20-0400 Diastolic blood pressure 84 mm[Hg] Mitzi Greenfield MD Work Phone: [facility] 01-30-2025 09:20-0400 Systolic blood pressure 136 mm[Hg] Mitzi Greenfield MD Work Phone: [facility] 03-25-2024 10:44-0400 Body mass index (BMI) [Ratio] 41.37 kg/m2 Mitzi Greenfield MD Work Phone: [facility] 03-25-2024 10:44-0400 Body weight 109.32 kg Mitzi Greenfield MD Work Phone: [facility] 03-25-2024 10:44-0400 Diastolic blood pressure 80 mm[Hg] Mitzi Greenfield MD Work Phone: [facility] 03-25-2024 10:44-0400 Systolic blood pressure 122 mm[Hg] Mitzi Greenfield MD Work Phone: [facility] 02-26-2024 08:09-0400 Body mass index (BMI) [Ratio] 40.85 kg/m2 Mitzi Greenfield MD Work Phone: [facility] 02-26-2024 08:09-0400 Body weight 107.96 kg Mitzi Greenfield MD Work Phone: [facility] 02-26-2024 08:09-0400 Diastolic blood pressure 84 mm[Hg] Mitzi Greenfield MD Work Phone: [facility] 02-26-2024 08:09-0400 Systolic blood pressure 136 mm[Hg] Mitzi Greenfield MD Work Phone: [facility] 02-12-2024 21:30-0400 Body temperature 97.9 [degF] Dr. Clive Baltazar Work Phone: [facility] 02-12-2024 21:30-0400 Diastolic blood pressure 90 mm[Hg] Dr. Clive Baltazar Work Phone: [facility] 02-12-2024 21:30-0400 Heart rate 65 /min Dr. Clive Baltazar Work Phone: [facility] 02-12-2024 21:30-0400 Respiratory rate 15 /min Dr. Clive Baltazar Work Phone: [facility] 02-12-2024 21:30-0400 SaO2% (BldA) [Mass fraction] 97 % Dr. Clive Baltazar Work Phone: [facility] 02-12-2024 21:30-0400 Systolic blood pressure 157 mm[Hg] Dr. Clive Baltazar Work Phone: [facility] 02-11-2024 16:00-0400 Body height 162.[address] Clive Baltazar Work Phone: [facility] 02-11-2024 16:00-0400 Body mass index (BMI) [Ratio] 42.6 kg/m2 Dr. Clive Baltazar Work Phone: [facility] 02-11-2024 16:00-0400 Body weight 112.[address] Clive Baltazar Work Phone: [facility] 02-11-2024 14:45-0400 Inhaled oxygen flow rate 4 L/min Dr. Clive Baltazar Work Phone: [facility] 01-26-2024 10:11-0400 Body height 162.6 cm Mitzi Greenfield MD Work Phone: [facility] 01-26-2024 10:11-0400 Body weight 112.95 kg Mitzi Greenfield MD Work Phone: [facility] 01-26-2024 10:11-0400 Diastolic blood pressure 86 mm[Hg] Mitzi Greenfield MD Work Phone: [facility] 01-26-2024 10:11-0400 Systolic blood pressure 138 mm[Hg] Mitzi Greenfield MD Work Phone: [facility] 12-23-2023 09:00-0500 Body weight 112.67 kg Mitzi Greenfield MD Work Phone: [facility] 12-23-2023 09:00-0500 Diastolic blood pressure 86 mm[Hg] Mitzi Greenfield MD Work Phone: [facility] 12-23-2023 09:00-0500 Systolic blood pressure 144 mm[Hg] Mitzi Greenfield MD Work Phone: [facility] 06-08-2023 13:24-0400 Body temperature 98.6 [degF] [facility] 06-08-2023 13:24-0400 Diastolic blood pressure 81 mm[Hg] [facility] 06-08-2023 13:24-0400 Heart rate 62 /min [facility] 06-08-2023 13:24-0400 Respiratory rate 16 /min [facility] 06-08-2023 13:24-0400 SaO2% (BldA) [Mass fraction] 100 % [facility] 06-08-2023 13:24-0400 Systolic blood pressure 124 mm[Hg] [facility] 06-08-2023 09:35-0400 Body height 162.56 cm [facility] 06-08-2023 09:35-0400 Body mass index (BMI) [Ratio] 41.8 kg/m2 [facility] 06-08-2023 09:35-0400 Body weight 110.49 kg [facility] 12-22-2022 09:10-0500 Body temperature 97.5 [degF] Dr. Abran Baltazar Work Phone: [facility] 12-22-2022 09:10-0500 Diastolic blood pressure 71 mm[Hg] Dr. Abran Baltazar Work Phone: [facility] 12-22-2022 09:10-0500 Heart rate 63 /min Dr. Abran Baltazar Work Phone: [facility] 12-22-2022 09:10-0500 Respiratory rate 16 /min Dr. Abran Baltazar Work Phone: [facility] 12-22-2022 09:10-0500 SaO2% (BldA) [Mass fraction] 100 % Dr. Abran Baltazar Work Phone: [facility] 12-22-2022 09:10-0500 Systolic blood pressure 107 mm[Hg] Dr. Abran Baltazar Work Phone: [facility] 12-22-2022 09:00-0500 Inhaled oxygen flow rate 3 L/min Dr. Abran Baltazar Work Phone: [facility] 12-22-2022 07:21-0500 Body height 162.[address] Abran Baltazar Work Phone: [facility] 12-22-2022 07:21-0500 Body mass index (BMI) [Ratio] 41.5 kg/m2 Dr. Abran Baltazar Work Phone: [facility] 12-22-2022 07:21-0500 Body weight 109.[address] Abran Baltazar Work Phone: [facility] 09-08-2022 11:16-0500 Body height 162.[address] Abran Baltazar Work Phone: [facility] Work Phone: 09-08-2022 11:16-0500 Body mass index (BMI) [Ratio] 41.1 kg/m2 Dr. Abran Baltazar Work Phone: [facility] 09-08-2022 11:16-0500 Body weight 108.[address] Abran Baltazar Work Phone: [facility] Encounters Encounter Date Encounter Type Care Provider Facility Start: 02-06-2025 End: 04-08-2025 Follow-up encounter Tanisha Andres APRN.CNP Work Phone: OB/Gynecology Start: 01-30-2025 End: 01-30-2025 ambulatory MITZI GREENFIELD Facility:[facility] Start: 01-30-2025 End: 01-30-2025 Patient encounter procedure Mitzi Greenfield MD Work Phone: OB/Gynecology Comment on above: Encounter for gyneco logical examination (general) (routine) without abnormal findings (Primary Dx); Encounter for screening mammogram for breast cancer; Special screening examination for human papillomavirus (HPV); Screening for cervical cancer Start: 01-30-2025 End: 01-30-2025 Patient encounter status Mitzi Greenfield MD Work Phone: [facility] Start: 09-13-2024 End: 09-13-2024 [facility] Facility:[facility] Start: 05-23-2024 Telephone encounter Mitzi Greenfield MD Work Phone: OB/Gynecology Comment on above: Patient Update Start: 05-11-2024 End: 05-11-2024 [facility] Facility:[facility] Start: 03-25-2024 End: 03-25-2024 ambulatory MITZI GREENFIELD Facility:[facility] Start: 03-25-2024 End: 03-25-2024 Patient encounter procedure Mitzi Greenfield MD Work Phone: OB/Gynecology Comment on above: Post-operative state (Primary Dx) Start: 02-26-2024 End: 02-26-2024 ambulatory MITZI GREENFIELD Facility:[facility] Start: 02-26-2024 End: 02-26-2024 Patient encounter procedure Mitzi Greenfield MD Work Phone: OB/Gynecology Comment on above: Post-operative state (Primary Dx) Start: 02-17-2024 Telephone encounter Mitzi Greenfield MD Work Phone: OB/Gynecology Comment on above: Results Start: 02-15-2024 ambulatory Mitzi Greenfield MD Work Phone: OB/Gynecology Comment on above: Urethra Question Start: 02-12-2024 Telephone encounter Mitzi Greenfield MD Work Phone: OB/Gynecology Comment on above: Post Op Start: 02-11-2024 End: 02-12-2024 Evaluation and management of inpatient Dr. Clive Baltazar Work Phone: [facility] Work Phone: Start: 02-02-2024 End: 02-02-2024 ambulatory Clive Baltazar Facility:[facility] Start: 02-02-2024 End: 02-02-2024 Non-patient / Non-visit Dr. Clive Baltazar Work Phone: [facility] Work Phone: Start: 01-26-2024 End: 01-26-2024 Patient encounter procedure Mitzi Greenfield MD Work Phone: OB/Gynecology Comment on above: Uterine leiomyoma, u nspecified location (Primary Dx); Abnormal uterine bleeding (AUB); Endometrial hyperplasia; Pre-op exam Start: 01-26-2024 End: 01-26-2024 Preprocedural examination done Mitzi Greenfield MD Work Phone: [facility] Work Phone: Start: 12-23-2023 End: 12-23-2023 Patient encounter procedure Mitzi Greenfield MD Work Phone: OB/Gynecology Comment on above: Uterine leiomyoma, u nspecified location (Primary Dx); Endometrial hyperplasia; Abnormal uterine bleeding (AUB); Enlarged uterus Start: 12-08-2023 End: 12-08-2023 Subsequent hospital visit by physician [facility] Work Phone: Radiology Comment on above: Abnormal uterine ble eding (AUB) [N93.9] Start: 11-26-[address] [facility] stacey TIRADO Work Phone: OB/Gynecology Comment on above: Results Start: 11-03-2023 End: 11-03-2023 ambulatory [facility] Work Phone: Start: 11-03-2023 End: 11-03-2023 Patient encounter procedure [facility] Work Phone: Start: 11-03-2023 End: 11-03-2023 ambulatory Clive Baltazar Facility:[facility] Start: 09-09-2023 End: 09-09-2023 ambulatory [facility] Work Phone: Start: 09-09-2023 End: 09-09-2023 Patient encounter procedure [facility]-Outpatient [facility] Work Phone: Start: 09-01-2023 Telephone encounter Tanisha Muñozfreddy ibarra APRN.RN ADVICE Work Phone: OB/Gynecology Comment on above: Patient Question Start: 06-08-2023 End: 06-08-2023 Admission to same day surgery center [facility] Start: 06-08-2023 End: 06-08-2023 ambulatory [facility] Work Phone: Start: 04-28-2023 End: 04-28-2023 ambulatory [facility] Work Phone: Start: 04-28-2023 End: 04-28-2023 Patient encounter procedure [facility] Work Phone: Start: 12-22-2022 Non-patient / Non-visit Dr. Yanick Baltazar Work Phone: [facility] Start: 12-22-2022 End: 12-22-2022 Admission to same day surgery center Dr. Abran Baltazar Work Phone: [facility]-Endoscopy Start: 12-22-2022 End: 12-22-[address] Abran Baltazar Work Phone: [facility] Work Phone: Start: 10-15-2022 End: 10-15-[address] Abran Baltazar Work Phone: [facility] Start: 09-08-2022 End: 09-08-[address] Abran Baltazar Work Phone: [facility] Work Phone: Start: 09-08-2022 End: 09-08-[address] Abran Baltazar Work Phone: [facility]-Outpatient Breast Imaging Start: 09-08-2022 Non-patient / Non-visit Dr. Yanick Baltazar Work Phone: [facility] Start: 04-22-2022 End: 04-22-2022 Patient encounter procedure [facility]-Laboratory, [place] Procedures Date Procedure Procedure Detail Performing Clinician Start: 02-11-[address] Clive Baltazar Work Phone: Start: 09-09-2023 Screening mammography Start: 06-08-2023 Hysteroscopy Start: 12-22-[address] Lonnie Baltazar Work Phone: Start: 12-18-2022 Colonoscopy Mitzi Greenfiedl MD Work Phone: Start: 09-08-2022 Screening mammography Breanne Baltazar Work Phone: H/O: hysterectomy S/P hysterectomy Dr. Yanick Baltazar Work Phone: Plan of Treatment Date Care Activity Detail Author Start: 12-18-2032 Screening for malignant neoplasm of colon [facility] Start: 04-29-2032 Urine microalbumin profile DTaP,Tdap,Td Vaccine (2 - Td or Tdap) [facility] Start: 01-30-2030 Screening for malignant neoplasm of cervix Cervical Cancer Screening [facility] Start: 05-14-2026 HPV Testing HPV Testing [facility] Start: 05-14-2026 Pap Testing Pap Testing [facility] Start: 05-14-2026 Screening for malignant neoplasm of cervix [facility] Start: 02-05-2026 End: 02-05-2026 Patient encounter procedure 02/05/2026 11:20 AM EDT Office Visit OB/Gynecology [address] [place] [address] Mitzi Gerard MD [address] [place] [address] Annual OB/Gynecology Comment on above: Annual Start: 09-13-2025 Screening for malignant neoplasm of breast Mammogram Screening [facility] Start: 06-19-2025 Influenza vaccination Influenza Vaccine (Season Ended) [facility] Start: 06-19-2024 Covid-19 Vaccine ( season) Covid-19 Vaccine ( season) [facility] Start: 06-19-2024 Influenza vaccination [facility] Start: 05-14-2024 Screening for malignant neoplasm of cervix Cervical Cancer Screening [facility] Start: 03-25-2024 End: 03-25-2024 Patient encounter procedure 03/25/2024 10:10 AM EDT Office Visit OB/Gynecology [address] [place] [address] Mitzi Gerard MD [address] [place] [address] Post Op OB/Gynecology Comment on above: Post Op Start: 02-26-2024 End: 02-26-2024 Patient encounter procedure 02/26/2024 8:10 AM EDT Office Visit OB/Gynecology [address] [place] [address] Mitzi Gerard MD [address] [place] [address] 2 week post OB/Gynecology Comment on above: 2 week post Start: 02-12-2024 Introduction of urinary catheter [facility] Start: 02-12-2024 [facility] Start: 02-12-2024 Patient discharge [facility] Start: 02-11-2024 Following clinical pathway protocol [facility] Start: 02-11-2024 Admission procedure [facility] Start: 02-11-2024 Introduction of urinary catheter [facility] Start: 02-11-2024 Ambulation therapy management [facility] Start: 02-11-2024 Continuous pulse oximetry [facility] Start: 02-11-2024 Elevation of head of bed [facility] Start: 02-11-2024 Incentive spirometry [facility] Start: 02-11-2024 Measuring intake and output [facility] Start: 02-11-2024 Notification of physician [facility] Start: 02-11-2024 Oxygen therapy [facility] Start: 02-11-2024 Patient education [facility] Start: 02-11-2024 Procedures relating to eating and drinking [facility] Start: 02-11-2024 Taking patient vital signs [facility] Start: 02-11-2024 Wound care [facility] Start: 02-11-2024 End: 02-11-2024 [facility] Start: 10-19-2023 Behavioral Health Screening Behavioral Health Screening [facility] Start: 10-19-2023 Depression Assessment Depression Assessment [facility] Start: 06-19-2023 Covid-19 Vaccine () Covid-19 Vaccine () [facility] Start: 06-19-2023 Influenza vaccination Influenza Vaccine (#1) [facility] Start: 06-08-2023 Anes hysteroscopy&/hysterosalpingo graphy w/bx ANESTH HYSTEROSCOPE/GRAPH [facility] Start: 06-08-2023 Hysteroscopy bx endometrium&/polypc w/wo d&c HYSTEROSCOPY BIOPSY [facility] Start: 06-08-2023 Introduction of urinary catheter [facility] Start: 06-08-2023 Patient discharge [facility] Start: 06-08-2023 Ambulation therapy management [facility] Start: 06-08-2023 Continuous pulse oximetry [facility] Start: 06-08-2023 Elevation of head of bed [facility] Start: 06-08-2023 Incentive spirometry [facility] Start: 06-08-2023 Measuring intake and output [facility] Start: 06-08-2023 Notification of physician [facility] Start: 06-08-2023 End: 06-08-2023 Oxygen therapy [facility] Start: 06-08-2023 Patient education [facility] Start: 06-08-2023 Taking patient vital signs [facility] Start: 06-08-2023 Wound care [facility] Start: 06-08-2023 [facility] Start: 06-08-2023 Medical regimen orders management [facility] Start: 12-22-2022 Patient discharge [facility] Start: 10-19-2022 Depression Assessment Depression Assessment [facility] Start: 05-27-2022 Mammography Mammogram Screening [facility] Start: 05-27-2022 Screening for malignant neoplasm of breast Mammogram Screening [facility] Start: 2020 Pneumococcal Vaccine: 50+ (1 of 1 - PCV) Pneumococcal Vaccine: 50+ (1 of 1 - PCV) [facility] Start: 2015 Cologuard (FIT-DNA) Cologuard (FIT-DNA) [facility] Start: 2015 Colonoscopy Colonoscopy [facility] Start: 2015 Colorectal Cancer Screening Colorectal Cancer Screening [facility] Start: [address] Colonography [facility] Start: 2015 Diabetes Screening Diabetes Screening [facility] Start: 2015 Fecal Occult Blood Fecal Occult Blood [facility] Start: 2015 Lipid 1996 panel - Serum or Plasma Lipid Screening [facility] Start: 2015 Lipid panel Lipid Screening [facility] Start: 2015 Screening for malignant neoplasm of colon [facility] Start: 2015 Sigmoidoscopy Sigmoidoscopy [facility] Start: 1989 Hepatitis B Vaccine (1 of 3 - 19+ 3-dose series) Hepatitis B Vaccine (1 of 3 - 19+ 3-dose series) [facility] Start: 1988 Anxiety Screening Anxiety Screening [facility] Start: 1988 Depression Screening Depression Screening [facility] Start: 1988 Hepatitis C Screening Hepatitis C Screening [facility] Start: 1988 Hepatitis C screening Hepatitis C Screening [facility] Start: 1988 HIV Screening HIV Screening [facility] Start: 1988 HIV screening HIV Screening [facility] Start: 1970 Hepatitis B Vaccine (1 of 3 - 3-dose series) Hepatitis B Vaccine (1 of 3 - 3-dose series) [facility] Colonoscopy [facility] Work Phone: Colonoscopy [facility] End: 03-01-2026 DBT Breast - bilateral screening NAZANIN SCREENING W JENA Radiology Routine Encounter for screening mammogram for breast cancer 1 Occurrences starting 01/30/2025 until 03/01/2026 [facility] Work Phone: Comment on above: 1 Occurrences starting 01/30/2025 until 03/01/2026 Electrocardiographic procedure [facility] PAP TEST PAP TEST Lab Rou viktor Special screening examination for human papillomavirus (HPV) Screening for cervical cancer 01/30/2025 9:47 AM EDT [facility] Patient Education Abdominal Hyst erectomy Dc [facility] Work Phone: Patient referral [facility] Work Phone: US Pelvis transvaginal US FEMALE PELVIS TRANSVAG Radiology Routine Abnormal uterine bleeding (AUB) 12/08/2023 2:02 PM EST [facility] Work Phone: End: 12-25-2024 Us transvaginal US FEMALE PELVIS TRANSVAG Radiology Routine Abnormal uterine bleeding (AUB) 1 Occurrences starting 11/26/2023 until 12/25/2024 [facility] Work Phone: Comment on above: 1 Occurrences starting 11/26/2023 until 12/25/2024 [facility] Immunizations Immunization Date Immunization Notes Care Provider Dennis leong 01-31-2023 COVID-19 vaccine, ag e 12+ yr, bivalent (PFIZER-BIONTNewsPin) Mitzi Greenfield MD Work Phone: [facility] 10-23-2022 zoster vaccine recombinant Mitzi Greenfield MD Work Phone: [facility] 04-29-2022 tetanus toxoid, redu valeri diphtheria toxoid, and acellular pertussis vaccine, adsorbed Mitzi Greenfield MD Work Phone: [facility] 04-29-2022 zoster vaccine recombinant Mitzi Greenfield MD Work Phone: [facility] 03-01-2022 COVID-19 original vaccine, age 12+ yr, monovalent (PFIZER-BIONTECH - YANES TOP) Mitzi Greenfield MD Work Phone: [facility] 02-16-2022 COVID-19 original vaccine, full dose, monovalent (MODERNA) Mitzi Greenfield MD Work Phone: [facility] 09-13-2021 COVID-19 original vaccine, age 12+ yr, monovalent (PFIZER-BIONTECH - PURPLE TOP) Mitzi Greenfield MD Work Phone: [facility] 01-24-2021 COVID-19 original vaccine, full dose, monovalent (MODERNA) Mitzi Greenfield MD Work Phone: [facility] 01-17-2021 COVID-19 original vaccine, full dose, monovalent (MODERNA) Mitzi Greenfield MD Work Phone: [facility] 12-28-2020 COVID-19 original vaccine, full dose, monovalent (MODERNA) Mitzi Greenfield MD Work Phone: [facility] 12-17-2020 COVID-19 original vaccine, full dose, monovalent (MODERNA) Mitzi Greenfield MD Work Phone: [facility] Payers Date Payer Category Payer Self-pay [id number] 2021 Private Health Insurance [id number] 2021 Private Health Insurance [id number] Unknown [id number] Unknown [id number] Unknown [id number] Unknown [id number] Unknown [id number] Social History Date Type Detail Facility Tobacco smoking status NHIS Unknown if ever smoked [facility] Work Phone: Start: 1970 Sex Assigned At Female [facility] Start: 09-08-2022 End: 01-29-2024 Tobacco smoking status SDIS Unknown if ever smoked [facility] Start: 08-20-2023 Tobacco smoking status SDIS Never smoked tobacco [facility] Start: 08-20-2023 Tobacco use and exposure Smokeless tobacco non-user [facility] Start: 08-20-2023 End: 01-30-2025 Alcohol intake Lifetime non-drinker (finding) [facility] Start: 08-20-2023 End: 01-30-2025 History of Social function [facility] Start: 08-20-2023 End: 01-30-2025 Tobacco use panel [facility] National Score (1-100), lower number is lower risk 83 [facility] Start: 1970 Sex Assigned At Not on file [facility] NEGATED: Highlighted row [facility] Medical Equipment Procedure Code Equipment Code Equipment Origin al Text Equipment Identifier Dates Hysterectomy, total, abdominal Collagen haemostatic agent, non-antimicrobial [id number] FDA Start: 02-11-2024 Goals Date Patient Goal Desired Activity /State Functional Status Date Assessment Result Facility 02-12-2024 Functional status Ambulates [facility] Work Phone: Mental Status Date Assessment Result Facility 02-12-2024 Cognitive function Appropriate;Chante mejia [facility] Work Phone: 02-11-2024 Cognitive function Arousable To Voice/Nam e [facility] Work Phone: 06-08-2023 Cognitive function [facility]Name [place] [facility]: 12-22-2022 Cognitive function Touch/Shaking [facility] Work Phone: Clinical Notes 12-22-2022 to 01-30-2025 Mitzi Gerard MD - 01/30/2025 9:17 AM EDTTelephone Encounter - Jeana Jackman RN - 05/24/2024 8:13 AM EDTTelephone Encounter - Jeana Jackman RN - 05/24/2024 8:13 AM EDT Note Date & Type Note Facility 01-30-2025 Note HNO ID: [id number] Author: MITZI GERARD MD Service: ? Author Type: Physician Type: Progress Notes Filed: 01/30/2025 09:46 Note Text: [employer] Measurer offered: Patient declinesCaitlin Dodson is a 54 year old who presents for an annual gynecologic exam without complaints. Considering going to [place] in the fall with . Postmenopausal: s/p Hysterectomy 02/11/24 d/t bleeding fibroids HRT use: No. Still get period: No Menopause symptoms: None Time with current partner: 33 years Number of lifetime partners: 1 control frequency: Never HPV vaccine: No; Last pap smear: 05/08/21: negative History of abnormal pap: No Bothersome pelvic pain: No Last mammogram: August 2024 normal History of abnormal mammogram: No Patient concerns for STD exposure: No. OB History Gravida2 Para2 Term2 Preterm0 AB0 Living2 SAB0 IAB0 Ectopic0 Multiple0 Live Births2 Problem Relation Age of Onset other (neoplasm of uterus) Mother Kidney Disease Mother Hypertension Mother Mental illness Mother Prostate Cancer Father Hypertension Father other (muscular disorder) Father Thyroid Sister Depression Sister Suicide / Suicidal Behaviors Brother Depression Brother Heart disease Maternal Grandfather Stroke Maternal Grandfather Heart Attack Paternal Grandfather SOCIAL HISTORY Social History Tobacco Use Smoking status: Never Smokeless tobacco: Never Vaping Use Vaping status: Never Used Substance Use Topics Alcohol use: Never Drug use: Never REVIEW OF SYSTEMS Abdomen: No abdominal pain, nausea, vomiting, diarrhea, or constipation. No bloating, early satiety, indigestion, or increased flatulence. Bladder: No dysuria, gross hematuria, urinary frequency, urinary urgency, or incontinence Breast: No breast lumps, nipple d/c, overlying skin changes, redness or skin retraction Allergies and current medication updated:Yes SENSITIVE EXAM: The sensitive examination was discussed with the Patient or Patient's Authorized General Engineer. As applicable, any other physician, advance practice provider, medical student, or other health professional student that will be observing or involved in the sensitive examination for educational or training purposes was discussed with the Patient or Authorized General Engineer. The Patient or Authorized General Engineer has agreed to proceed with the sensitive examination. (Sensitive examination includes inspection and/or palpation of the breasts, pelvis, prostate and anorectal regions). EXAM: BP 136/84 Ht 5' 4 (1.63m) Wt 253 lb (114.8kg) LMP 02/11/2024 BMI 43.41 kg/(m2). GENERAL: pleasant, female in no apparent distress HEENT: Normocephalic, atraumatic, mucus membranes moist, and no lesions NECK: Supple, full range of motion, no adenopathy, and thyroid normal DERMATOLOGY: Normal, without lesions, non-icteric, and non-hirsute BREAST: soft, non-tender, symmetric, no dominant mass, normal nipple-areolar complex, no lymphadenopathy, and no nipple discharge CHEST: Normal inspiratory effort ABDOMEN: soft, non-tender, and no masses PELVIC: external genitalia normal, normal Bartholin's glands, urethra, Dequincy's glands, no vulvar lesions, good vaginal support, physiologic discharge present, cervix normal, normal appearing perineal body and perianal region BIMANUAL: no adnexal masses and non-tender RECTOVAGINAL: deferred. NEURO: alert and oriented x3,exam grossly non-focal EXTREMITIES: normal ASSESSMENT/PLAN: 1) Health maintenance: Pap/HPV today Mammogram ordered Nutrition, exercise and routine health maintenance exams reviewed. Calcium/Vitamin D supplementation information provided. Colon cancer screening: up to date with screening 2) Follow up one year or sooner as needed Mitzi Blanco MD [facility] 01-30-2025 History of Presen t illness Narrative [employer] offered: Patient declines. Ivory is a 54 year old who presents for an annual gynecologic exam without complaints. Considering going to [place] in the fall with . Postmenopausal: s/p Hysterectomy 02/11/24 d/t bleeding fibroids HRT use: No. Still get period: No Menopause symptoms: None Time with current partner: 33 years Number of lifetime partners: 1 control frequency: Never HPV vaccine: No; Last pap smear: 05/08/21: negative History of abnormal pap: No Bothersome pelvic pain: No Last mammogram: August 2024 normal History of abnormal mammogram: No Patient concerns for STD exposure: No. OB History Gravida2 Para2 Term2 Preterm0 AB0 Living2 SAB0 IAB0 Ectopic0 Multiple0 Live Births2 Problem Relation Age of Onset other (neoplasm of uterus) Mother Kidney Disease Mother Hypertension Mother Mental illness Mother Prostate Cancer Father Hypertension Father other (muscular disorder) Father Thyroid Sister Depression Sister Suicide / Suicidal Behaviors Brother Depression Brother Heart disease Maternal Grandfather Stroke Maternal Grandfather Heart Attack Paternal Grandfather SOCIAL HISTORY Social History Tobacco Use Smoking status: Never Smokeless tobacco: Never Vaping Use Vaping status: Never Used Substance Use Topics Alcohol use: Never Drug use: Never REVIEW OF SYSTEMS Abdomen: No abdominal pain, nausea, vomiting, diarrhea, or constipation. No bloating, early satiety, indigestion, or increased flatulence. Bladder: No dysuria, gross hematuria, urinary frequency, urinary urgency, or incontinence Breast: No breast lumps, nipple d/c, overlying skin changes, redness or skin retraction Allergies and current medication updated:Yes SENSITIVE EXAM: The sensitive examination was discussed with the Patient or Patient's Authorized General Engineer. As applicable, any other physician, advance practice provider, medical student, or other health professional student that will be observing or involved in the sensitive examination for educational or training purposes was discussed with the Patient or Authorized General Engineer. The Patient or Authorized General Engineer has agreed to proceed with the sensitive examination. (Sensitive examination includes inspection and/or palpation of the breasts, pelvis, prostate and anorectal regions). EXAM: BP 136/84 Ht 5' 4 (1.63m) Wt 253 lb (114.8kg) LMP 02/11/2024 BMI 43.41 kg/(m^2). GENERAL: pleasant, female in no apparent distress HEENT: Normocephalic, atraumatic, mucus membranes moist, and no lesions NECK: Supple, full range of motion, no adenopathy, and thyroid normal DERMATOLOGY: Normal, without lesions, non-icteric, and non-hirsute BREAST: soft, non-tender, symmetric, no dominant mass, normal nipple-areolar complex, no lymphadenopathy, and no nipple discharge CHEST: Normal inspiratory effort ABDOMEN: soft, non-tender, and no masses PELVIC: external genitalia normal, normal Bartholin's glands, urethra, Dequincy's glands, no vulvar lesions, good vaginal support, physiologic discharge present, cervix normal, normal appearing perineal body and perianal region BIMANUAL: no adnexal masses and non-tender RECTOVAGINAL: deferred. NEURO: alert and oriented x3,exam grossly non-focal EXTREMITIES: normal ASSESSMENT/PLAN: 1) Health maintenance: Pap/HPV today Mammogram ordered Nutrition, exercise and routine health maintenance exams reviewed. Calcium/Vitamin D supplementation information provided. Colon cancer screening: up to date with screening 2) Follow up one year or sooner as needed Mitzi Blanco MD documented in this encounter [facility] 05-24-2024 Telephone encounter Note Form faxed to [facility]. Jeana Jackman RN [facility] 05-24-2024 Miscellaneous Notes Form faxed to [facility]. Jeana Jackman RN NO restrictions- form completed Received form from [facility]. To DM. Viola Tony RN Patient is scheduled with [facility] on 06/02 for routine cleaning, xrays and exam. They are calling to ask if there are any precautions they need to follow since she recently had ALICE/BSO. They are faxing a form to complete for clearance too. Emily Salgado RN documented in this encounter [facility] 05-24-2024 Telephone encounter Note NO restrictions- form completed [facility] Work Phone: 05-23-2024 Telephone encounter Note Received form from [facility]. To DM. Viola Tony RN [facility] 05-23-2024 Telephone encounter Note Patient is scheduled with [facility] on 06/02 for routine cleaning, xrays and exam. They are calling to ask if there are any precautions they need to follow since she recently had ALICE/BSO. They are faxing a form to complete for clearance too. Emily Salgado RN [facility] 03-25-2024 Note HNO ID: [id number] Author: MITZI GERARD MD Service: ? Author Type: Physician Type: Progress Notes Filed: 03/25/2024 17:53 Note Text: SUBJECTIVE: 53 year old female presents for 6 week post-op exam. Doing well without complaints. No fever, no issues with BM or voiding. Objective: Incision: Healed Abdomen: Soft, Non-tender, and No palpable masses Genitalia: Normal external genitalia, Urethral meatus normal, Bladder nontender, normal vagina and normal vaginal tone, normal adnexa without masses or tenderness, perineum WNL, and ? Small area of cervix noted vs cuff Impression: Post-Op Exam Plan: Return to office annual exam Continue with routine pap and hpv . Recheck pathology- appears cervix entirely noted in specimen on pathology report- will recheck next year at annual exam, possible just way the tissue was healing it appear to be small stump of cervix. I have reviewed and updated past medical and surgical history, medications and allergies. Mitzi Blanco MD [facility] 03-25-2024 History of Presen t illness Narrative SUBJECTIVE: 53 year old female presents for 6 week post-op exam. Doing well without complaints. No fever, no issues with BM or voiding. Objective: Incision: Healed Abdomen: Soft, Non-tender, and No palpable masses Genitalia: Normal external genitalia, Urethral meatus normal, Bladder nontender, normal vagina and normal vaginal tone, normal adnexa without masses or tenderness, perineum WNL, and ? Small area of cervix noted vs cuff Impression: Post-Op Exam Plan: Return to office annual exam Continue with routine pap and hpv . Recheck pathology- appears cervix entirely noted in specimen on pathology report- will recheck next year at annual exam, possible just way the tissue was healing it appear to be small stump of cervix. I have reviewed and updated past medical and surgical history, medications and allergies. Mitzi Blanco MD documented in this encounter [facility] 02-26-2024 Note HNO ID: [id number] Author: MITZI GERARD MD Service: ? Author Type: Physician Type: Progress Notes Filed: 02/26/2024 08:21 Note Text: SUBJECTIVE: 53 year old female presents for 2 week post-op exam. Doing well, no fever, no vaginal bleeding, urinating w/o difficulty. BMs w/o difficulty. Pt reports not taking anything for pain. OBJECTIVE: Incision: Dry and intact, without redness. Small ecchymosis superior to incision. Abdomen: Soft, Non-tender, and No palpable masses PLAN: RTO for 6 week check Restrictions reviewed Benign pathology reviewed I have reviewed and updated past medical and surgical history, medications and allergies. Mitzi Blanco MD [facility] 02-26-2024 History of Presen t illness Narrative SUBJECTIVE: 53 year old female presents for 2 week post-op exam. Doing well, no fever, no vaginal bleeding, urinating w/o difficulty. BMs w/o difficulty. Pt reports not taking anything for pain. OBJECTIVE: Incision: Dry and intact, without redness. Small ecchymosis superior to incision. Abdomen: Soft, Non-tender, and No palpable masses PLAN: RTO for 6 week check Restrictions reviewed Benign pathology reviewed I have reviewed and updated past medical and surgical history, medications and allergies. Mitzi Blanco MD documented in this encounter [facility] 02-17-2024 Telephone encounter Note Patient notified. She has no concerns at this time. Emily Salgado RN [facility] 02-17-2024 Miscellaneous Notes Patient notified. She has no concerns at this time. Emily Salgado RN Left message for patient to call office. Viola Tony RN Please notify patient that her pathology from ALICE BSO is benign. She can take her dressing off tomorrow. So long as no concerns I will see her as scheduled at post op check next week. documented in this encounter [facility] 02-17-2024 Telephone encounter Note Left message for patient to call office. Viola Tony RN [facility] 02-17-2024 Telephone encounter Note Please notify patient that her pathology from ALICE, BSO is benign. She can take her dressing off tomorrow. So long as no concerns I will see her as scheduled at post op check next week. [facility] Work Phone: 02-16-2024 Telephone encounter Note See 02/15/24 [employer] message encounter. Emily Salgado RN [facility] 02-16-2024 Miscellaneous Notes See 02/15/24 [employer] message encounter. Emily Salgado RN I did call patient directly twice, one VM left to check and see how she was feeling. I will try her back at later time. PSS had patient on the phone stating she had a missed call from office. She had ALICE, bilateral salpingectomy, cysto done yesterday. Patient thought could be Dr. Greenfield directly. Advised she has left for the day and a message will be sent to her to see if it was her. Aware she returns on Thursday. Emily Salgado RN documented in this encounter [facility] 02-16-2024 Telephone encounter Note [facility] Work Phone: 02-16-2024 Miscellaneous Notes documented in this encounter [facility] 02-12-2024 Telephone encounter Note I did call patient directly twice, one VM left to check and see how she was feeling. I will try her back at later time. [facility] Work Phone: 02-12-2024 Progress note Note Date/Time February 12, 2024 5:0 9pm [facility] Medical Records Department [address] [place] [address] Progress Note - Urology 02/12/24 1706 MR#: [id number] Acct: [id number] Name: ALISA CORONEL Rep #:[id number] : 1970 53 From: Gavi Raymundo PCP: Dr. Clive Baltazar MD Status :ADM IN Location: DC3 [id number] Subjective Subjective She was still bleeding from urethra this morning, and at noon I adjusted the packing with curiel out. She did not have blood during that time. No other issues. Urine clear. Objective Data Objective Data Vital Signs: Vital Signs Temp Pulse Resp BP Pulse Ox O2 Del Method O2 Flow Rate 98.3 F 74 15 128/72 H 99 Room Air 4 02/12/24 16:00 02/12/24 16:00 02/12/24 16:00 02/12/24 16:00 02/12/24 16:00 02/12/24 16:00 02/11/24 14:45 Oxygen Flow Rate (L/min) 4 Oxygen Delivery Method Room Air Weight: 112.6 kg Body Mass Index (BMI) 42.6 Intake & Output: Intake and Output for Last 24 Hours 02/10/24 02/11/24 02/12/24 23:59 23:59 23:59 Intake Total 1212 / 1212 1660.17 / 1660.17 Output Total 950 / 1850 2750 / 2750 Balance 262 / -638 -1089.83 / -1089.83 Lab / Micro Data 02/12/24 05:15 02/12/24 05:15 Labs: Laboratory Results - last 24 hr 02/12/24 05:15: WBC 16.1 H, RBC 4.91, Hgb 13.6, Hct 43.0, MCV 87.6, MCH 27.7, MCHC 31.6 L, RDW Std Deviation 49.3 H, RDW Coeff of Susanna 15.4 H, Plt Count 373, MPV 11.2, Sodium 139, Potassium 4.1, Chloride 109 H, Carbon Dioxide 25.0, Anion Gap 5, BUN 8, Creatinine 1.03 H, Estim Creat Clear Calc 77.64, Est GFR (MDRD) AfAmer 72, Est GFR (MDRD) Non-Af 60, BUN/Creatinine Ratio 7.8 L, Glucose 113 H, Calcium 7.9 L Physical Exam Narrative packing removed, she ambulated around the room, and no further bleeding. Assessment & Plan Assessment/Plan (1) Urethral laceration: PLAN: Plan ok to eat, void and go home from standpoint. call if issues. 02/12/24 1709 <Electronically signed by Gavi Schulte MD> Cosigner Signature (if applicable): CC: ~ Signed [facility] Work Phone: 1(122) 878-510604-26-2024 Telephone encounter Note* Telephone Encounter - Emily Salgado RN - 02/12/2024 1:28 PM EDT PSS had patient on the phone stating she had a missed call from office. She had ALICE, bilateral salpingectomy, cysto done yesterday. Patient thought could be Dr. Greenfield directly. Advised she has left for the day and a message will be sent to her to see if it was her. Aware she returns on Thursday. Emily Salgado RN [facility]04-26-2024 Consult note Author Jacinto Manuel [facility] February 12, 2024 9:16am Note Date/Time February 12, 2024 9:1 6am [facility] Medical Records Department [address] [place] [address] Counseling Note - Pharmacy 02/12/2415 MR#: [id number] Acct: [id number] Name: ALISA CORONEL Rep #:[id number] : 1970 53 From: Jacinto Manuel PCP: Dr. Clive Baltazar MD Status :ADM IN Location: [address] Pharmacy [place] Med Reconciliation Pharmacy Service has performed discharge medication reconciliation for this patient. The patient's discharge medication list was reviewed for discrepancies and discrepancies were resolved. Medications at Discharge Home Medications levothyroxine 75 mcg capsule 88 mcg PO DAILY THYROID 09/08/22 02/12/24 0916 <Electronically signed by Jacinto vogt> Date _ Jacinto Irwin Signature (if applicable): Date CC: ~ Signed [facility] Work Phone: 1(168) 370-135204-26-2024 Discharge summary Author Shalini Montero [facility] February 12, 2024 8:54am Note Date/Time February 12, 2024 8:5 4am [facility] Medical Records Department [address] [place] [address] Instructions for Home/Discharge Instructions 02/12/24 0853 MR#: [id number] Acct: [id number] Name: ALISA CORONEL Rep #:[id number] : 1970 53 From: Shalini Montero DO PCP: Dr. Clive Baltazar MD Status :ADM IN Discharge Instructions Diet Discharge Diet: No restrictions Activity Discharge Activity: May Not Drive and May Shower May resume sexual activity in: 6 weeks (nothing in the vagina for 6 weeks) Ice area for (Minutes): 15 Weight Bearing Status: Weight bearing as tolerated Lifting Restrictions: nothing greater than 10 pounds Dressing / Incision Call your doctor if your incision/area has: Continuous Slow Oozing, Sudden Increased Bleeding, Increased Pain/ Swelling, Increased Redness, Foul Smelling Discharge and Swelling at the incision site Call your doctor if you observe: Fever of 101 or Higher, Coldness, Increased Pain, Numbness or Tingling, Change in Color, Inability to urinate, Inability to have a bowel movement, Using more than 1 pad per hour, Shortness of breath, Dizziness, Fainting spells, Swelling in the ankles, Chest pain, Prolonged hiccupping, Increased palpitations (irregular heartbeat), Calf discomfort and Uncontrolled pain Suture Line Care: Avoid Pulling/Pushing and Avoid Pinching/Bending Remove Dressing in: 2 days Cleanse incision/area with: Soap & Water Follow Up Care Please Follow Up With: Mitzi Greenfield MD When: 1-2 weeks 6 weeks Test Results: Test results from this visit will be discussed in further detail at your follow- up appointment, if applicable. Discharge Plan Admission Admit Date/Time: 02/11/24 07:54 Attending Provider: Mitzi Greenfield Primary Care Provider: Clive Baltazar Instructions Patient Instructions: Abdominal Hysterectomy Dc Discharge Orders/Prescriptions Prescriptions: Continued levothyroxine 75 mcg capsule 88 mcg PO DAILY Discontinued norethindrone (contraceptive) 0.35 mg tablet 5 mg PO BID Patient Comments: TAKE 1 TABLET BY MOUTH EVERY DAY Other Ambulatory Orders: 12 Lead EKG (Routine) Timeframe: 20240202 Location: None Selected Ordered By: Dr. Mitzi Greenfield Referrals / Follow Up: Clive Baltazar MD [Primary Care Provider] - Disposition Disposition (needs filled in before D/C Order can be placed): Home, Self Care 02/12/24 0854<Electronically signed by Shalini Montero DO>Shalini Montero DO CC: Dr. Clive Baltazar MD ~ Signed [facility] Work Phone: 1(296) 620-950804-26-2024 Progress note Author Shalini Cabrerapaulette [facility] February 12, 2024 8:51am Note Date/Time February 12, 2024 8:5 1am [facility] Medical Records Department [address] [place] [address] Progress Note - OBGYN 02/12/24 0847 MR#: [id number] Acct: [id number] Name: ALISA CORONEL Rep #:[id number] : 1970 53 From: Shalini Montero PCP: Dr. Clive Baltazar MD Status :ADM IN Location: MS3 [id number] Subjective Subjective Patient is doing well this morning. Pain is well-controlled. She has only standing at the side of the bed but has vaginal bleeding when she stands up so she has not ambulated since surgery. The Curiel is still in place. She is tolerating her diet without nausea or vomiting. She denies chest pain, shortness of breath, lightheadedness, dizziness, leg pain. She has not yet passed gas. Objective Data Objective Data Vital Signs: Vital Signs Temp Pulse Resp BP Pulse Ox O2 Del Method O2 Flow Rate 98 F 71 16 133/78 H 97 Room Air 4 02/12/24 03:45 02/12/24 03:45 02/12/24 03:45 02/12/24 03:45 02/12/24 07:07 02/12/24 07:07 02/11/24 14:45 Oxygen Flow Rate (L/min) 4 Oxygen Delivery Method Room Air Weight: 248 lb 3.848 oz Body Mass Index (BMI) 42.6 Intake & Output: Intake and Output for Last 24 Hours 02/10/24 02/11/24 02/12/24 23:59 23:59 23:59 Intake Total 1212 / 1212 862.17 / 862.17 Output Total 950 / 1850 1550 / 1550 Balance 262 / -638 -687.83 / -687.83 Lab / Micro Data 02/12/24 05:15 02/12/24 05:15 Labs: Laboratory Results - last 24 hr 02/11/24 08:55: POC Glucose 120 H 02/12/24 05:15: WBC 16.1 H, RBC 4.91, Hgb 13.6, Hct 43.0, MCV 87.6, MCH 27.7, MCHC 31.6 L, RDW Std Deviation 49.3 H, RDW Coeff of Susanna 15.4 H, Plt Count 373, MPV 11.2, Sodium 139, Potassium 4.1, Chloride 109 H, Carbon Dioxide 25.0, Anion Gap 5, BUN 8, Creatinine 1.03 H, Estim Creat Clear Calc 77.64, Est GFR (MDRD) AfAmer 72, Est GFR (MDRD) Non-Af 60, BUN/Creatinine Ratio 7.8 L, Glucose 113 H, Calcium 7.9 L Physical Exam Const alert and no apparent distress General Appearance: comfortable HEENT normocephalic Resp normal respiratory effort GI soft to palpation and non-distended GI Narrative: ATTP, dressing c/d/i, non acute Narrative: Curiel catheter and vaginal packing in place. Pad with about a 4x5 cm area of bright red blood present at the front of her pad. Blood is present around catheter and a slow trickle of red blood is noted coming from the urethral opening. Assessment & Plan (1) S/P hysterectomy: PLAN: Patient is postop day 1 from a total abdominal hysterectomy. She is doingwell this morning but does note bleeding overnight and this morning. Bleeding is noted on exam coming from the urethral opening around the Curiel catheter. Will call urology prior to removing vaginal packing and Curiel catheter, and prior to discharge today. 02/12/24 0851 <Electronically signed by Shalini Montero DO> Cosigner Signature (if applicable): CC: ~ Signed [facility] Work Phone: 1(938) 869-697704-25-2024 Procedure [facility] 02-11-2024 Procedure [facility]04-25-2024 History and physical note Author Rafael [facility] February 11, 2024 10:00am Note Date/Time February 04, 2024 1:1 1pm [facility] Medical Records Department [address] [place] [id number] H&P Exam - [facility] 02/04/24 1310 MR#: [id number] Acct: [id number] Name: ALISA CORONEL Rep #:[id number] : 1970 53 From: Mitzi Greenfield MD PCP: Dr. Clive Baltazar MD Status :ADM IN Location: [place] [address] History and Physical Date of Admission: 02/11/24 Pre-Op History and Physical ? HPI: The patient is a 53 year old female presenting for discussion regarding surgical intervention for AUB, fibroid uterus and endometrial hyperplasia. Pt currently on Aygestin to control bleeding- has h/o endometrial hyperplasia and large fibroids. Pt feeling pelvic pressure and pain- and has consistent bleeding. Pt would like surgical intervention. Pt declines consults with [facility] and understands there is small risk of malignancy with final pathology which could result in need for secondary surgery. ? pre-operative visit. She is scheduled for ALICE with BSO, for AUB, fibroid uterus, Endometrial hyperplasia on 02/11/24. Procedure discussed along with risks, benefits and complications. Other alternatives discussed for management. Consent form signed? Yes. ? ? PAST MEDICAL HISTORY PAST MEDICAL HISTORY Diagnosis Date ? Abnormal uterine bleeding (AUB) ? ? Hyperplasia of endometrium determined by biopsy ? ? Hypothyroidism ? ? ? PAST SURGICAL HISTORY PAST SURGICAL HISTORY Procedure Laterality Date ? COLONOSCOPY SCREENING ? 12/22/2022 ? WNL repeat in 10Yrs. done at [facility] [facility] ? PAST SURGICAL HISTORY OF ? 06/08/2023 ? hysteroscopy D&C at [facility] per Dr Bray ? ? ? CURRENT MEDICATIONS Current Outpatient Medications Medication Sig Dispense Refill ? norethindrone (AYGESTIN) 5 mg tablet Take 2 tablets by mouth once daily. 180 tablet 1 ? levothyroxine (SYNTHROID) 88 mcg tablet Take 88 mcg by mouth daily before breakfast. ? ? ? No current facility-administered medications for this visit. ? ? ALLERGIES: Patient has no known allergies. ? PERSONAL HISTORY: SOCIAL HISTORY Social History ? Tobacco Use ? Smoking status: Never ? Smokeless tobacco: Never Vaping Use ? Vaping Use: Never used Substance Use Topics ? Alcohol use: Never ? Drug use: Never ? FAMILY HISTORY: FAMILY HISTORY FAMILY HISTORY Problem Relation Age of Onset ? other (neoplasm of uterus) Mother ? ? Kidney Disease Mother ? ? Hypertension Mother ? ? Mental illness Mother ? ? Prostate Cancer Father ? ? Hypertension Father ? ? other (muscular disorder) Father ? ? Thyroid Sister ? ? Depression Sister ? ? Suicide / Suicidal Behaviors Brother ? ? Depression Brother ? ? Heart disease Maternal Grandfather ? ? Stroke Maternal Grandfather ? ? Heart Attack Paternal Grandfather ? ? ? REVIEW OF SYMPTOMS: negative except as noted above PHYSICAL EXAMINATION: ? VITALS: Blood pressure 138/86, height 5' 4 (1.626 m), weight 249 lb (112.9 kg),last menstrual period 05/21/2023. ? GENERAL: The patient is well nourished, well hydrated in no acute distress. , The patient is oriented to time, place, and person. NECK: full range of motion LUNGS: Clear to auscultation bilaterally. no wheezes, rhonchi or rales HEART: Regular rate and rhythm, Normal heart sounds, and No murmurs or gallops ? IMPRESSION: 53yo female with large fibroid uterus, endometrial hyperplasia on progesterone, AUB ? PLAN: ALICE, BSO ? Pt has been counseled on risks/benefits and alternatives of surgery including but not limited to anesthesia, bleeding, infection, injury to pelvic structures including bowel, bladder, ureters and vessels. Pt wishes to proceed with surgery at this time. Pt counseled on retention of ovaries- declines and would like removal at time of surgery. We reviewed surgical menopause and implicationsfor HRT if desired. Risk of blood transfusion reviewed. ? Pre and post op instructions reviewed ? I have reviewed and updated past medical and surgical history, medications and allergies Mitzi Greenfield MD Office Visit on 01/26/2024 Office Visit on 01/26/2024 Note shared with patient Additional Documentation Vitals: BP 138/86 Ht 5' 4 (1.626 m) Wt 249 lb (112.9 kg) LMP 05/21/2023 BMI 42.74 kg/m? BSA 2.26 m? Flowsheets: Patient-Reported Data, [facility], Vital Signs Encounter Info: Billing Info, History, Allergies, Detailed Report 02/04/24 1310 <Electronically signed by Mitzi Greenfield MD> Cosigner Signature (if applicable): CC: Rafael Blanco; Dr. Clive Baltazar MD~ Signed ADDENDUM by M Dr. Mitzi Blanco on 02/11/24 at 1000 Addendum I have examined the patient and the H&P has been reviewed. There are no clinicalchanges since date of exam. 02/11/24 1000<Electronically signed by Mitzi Greenfield MD> Cosigner Signature (if applicable): cc: M Dr. Mitzi Blanco; Dr. Clive Baltazar MD ~* Signed [facility] Work Phone: 1(630) 966-651404-16-2024 Hospital Discharge instructionsAmbulatory Orders* 12 Lead EKG [[facility]] Time Frame: 02/02/24, Location: None Selected Additional Instructions Implant Used?: [facility] Work Phone: 1(412) 853-518704-09-2024 History and physical note* Mitzi Gerard MD - 01/26/2024 11:31 AM EDT Pre-Op History and Physical HPI: The patient is a 53 year old female presenting for discussion regarding surgical intervention for AUB, fibroid uterus and endometrial hyperplasia. Pt currently on Aygestin to control bleeding- has h/o endometrial hyperplasia and large fibroids. Pt feeling pelvic pressure and pain- and has consistent bleeding. Pt would like surgical intervention. Pt declines consults with MIGS and understandsthere is small risk of malignancy with final pathology which could result in need for secondary surgery. pre-operative visit. She is scheduled for ALICE with BSO, for AUB, fibroid uterus, Endometrial hyperplasia on 02/11/24. Procedure discussed along with risks, benefits and complications. Other alternatives discussed for management. Consent form signed? Yes. PAST MEDICAL HISTORY Diagnosis Date Abnormal uterine bleeding (AUB) Hyperplasia of endometrium determined by biopsy Hypothyroidism PAST SURGICAL HISTORY Procedure Laterality Date COLONOSCOPY SCREENING 12/22/2022 WNL repeat in 10Yrs. done at [facility] PAST SURGICAL HISTORY OF 06/08/2023 hysteroscopy D&C at [facility] per Dr Bray Current Outpatient Medications Medication Sig Dispense Refill norethindrone (AYGESTIN) 5 mg tablet Take 2 tablets by mouth once daily. 180 tablet 1 levothyroxine (SYNTHROID) 88 mcg tablet Take 88 mcg by mouth daily before breakfast. No current facility-administered medications for this visit. ALLERGIES: Patient has no known allergies. PERSONAL HISTORY: Social History Tobacco Use Smoking status: Never Smokeless tobacco: Never Vaping Use Vaping Use: Never used Substance Use Topics Alcohol use: Never Drug use: Never FAMILY HISTORY: FAMILY HISTORY Problem Relation Age of Onset other (neoplasm of uterus) Mother Kidney Disease Mother Hypertension Mother Mental illness Mother Prostate Cancer Father Hypertension Father other (muscular disorder) Father Thyroid Sister Depression Sister Suicide / Suicidal Behaviors Brother Depression Brother Heart disease Maternal Grandfather Stroke Maternal Grandfather Heart Attack Paternal Grandfather REVIEW OF SYMPTOMS: negative except as noted above PHYSICAL EXAMINATION: VITALS: Blood pressure 138/86, height 5' 4 (1.626 m), weight 249 lb (112.9 kg), last menstrual period 05/21/2023. GENERAL: The patient is well nourished, well hydrated in no acute distress. , The patient is oriented to time, place, and person. NECK: full range of motion LUNGS: Clear to auscultation bilaterally. no wheezes, rhonchi or rales HEART: Regular rate and rhythm, Normal heart sounds, and No murmurs or gallops IMPRESSION: 53yo female with large fibroid uterus, endometrial hyperplasia on progesterone, AUB PLAN: ALICE, BSO Pt has been counseled on risks/benefits and alternatives of surgery including but not limited to anesthesia, bleeding, infection, injury to pelvic structures including bowel, bladder, ureters and vessels. Pt wishes to proceed with surgery at this time. Pt counseled on retention of ovaries- declinesand would like removal at time of surgery. We reviewed surgical menopause and implications for HRT if desired. Risk of blood transfusion reviewed. Pre and post op instructions reviewed I have reviewed and updated past medical and surgical history, medications and allergies Mitzi Greenfield MD [facility] History of Present illness Narrative* Mitzi Gerard MD - 01/26/2024 11:28 AM EDT documented in this [facility] History of Present illness Narrative* Mitzi Gerard MD - 12/23/2023 8:57 AM EST Alisa Coronel is a 53 year old female who presents for pelvic pain/pressure. Pt reports had pelvic cramping and bleeding all the time despite being on norethindrone since August. Pt reports inAugust had D&C was placed on megace due to simple hyperplasia without atypia - had repeat EMB- with negative Hyperplasia- still having bleeding. Pt still having bleeding daily despite taking the progesterone sometimes TID just to help stop it. Pt here today to discuss hysterctomy. Pt reports mother had uterine cancer in her 70s. Pt reports weight loss or early satiety. Pt reports had fibroid found on ultrasound a few years ago but it was smaller at that time. Pt offers no other concerns today. OB History T2 L2 SAB0 IAB0 Ectopic0 Multiple0 Live Births2 Handbag Designer History LMP: 05/21/2023, Perimenopausal Age at Menarche: Age at First : Age at Menopause: Handbag Designer History Comments: Sexual Activity: Yes; Male Contraception: Condom PAST MEDICAL HISTORY Diagnosis Date Abnormal uterine bleeding (AUB) Hyperplasia of endometrium determined by biopsy Hypothyroidism PAST SURGICAL HISTORY Procedure Laterality Date COLONOSCOPY SCREENING 12/22/2022 WNL repeat in 10Yrs. done at [facility] PAST SURGICAL HISTORY OF 06/08/2023 hysteroscopy D&C at [facility] per Dr Bray FAMILY HISTORY Problem Relation [...] use: Never Current Outpatient Medications Medication Sig norethindrone (AYGESTIN) 5 mg tablet Take 2 tablets by mouth once daily. levothyroxine (SYNTHROID) 88 mcg tablet Take 88 mcg by mouth daily before breakfast. No current facility-administered medications for this visit. Allergies As of Date: 12/23/2023 (No Known Allergies) Fully Assessed 12/23/2023 REVIEW OF SYSTEMS Abdomen: cramping and pain Bladder: no dysuria .. Expanded ROS: no weight loss Allergies and current medication updated:Yes EXAM: BP 144/86 Wt 248 lb 6.4 oz (112.7kg) LMP 05/21/2023 GENERAL: pleasant, female in no apparent distress HEENT: Normocephalic and atraumatic NECK: Supple and full range of motion DERMATOLOGY: Normal, without lesions, non-icteric, and non-hirsute ABDOMEN: soft, non-tender, and fibroids palpated to left of umbilicus PELVIC: external genitalia normal, normal Bartholin's glands, urethra, Dequincy's glands, no vulvar lesions, no cervical lesions, good vaginal support, physiologic discharge present, normal appearing perineal body and perianal region BIMANUAL: no adnexal masses, non-tender, enlarged uterus 19 week size, and fibroid(s) palpable NEURO: alert and oriented x3,exam grossly non-focal EXTREMITIES: normal ASSESSMENT AND PLAN: Encounter Diagnosis ICD-10-CM 1. Uterine leiomyoma, unspecified location D25.9 2. Endometrial hyperplasia N85.00 3. Abnormal uterine bleeding (AUB) N93.9 4. Enlarged uterus N85.2 5. Patient has failed medical therapy with Megace and norethindrone. Patient would like to proceed with surgical intervention. Patient was counseled on surgical intervention with a total abdominal hysterectomy versus consultation with minimally invasive gynecologic surgeon. Patient declines second opinion with minimally invasive gynecologic surgeon. Patient was counseled on risk benefits of totalabdominal hysterectomy. Discussed ovarian preservation however patient desires ovarian removal at time of surgery. We discussed the risks and benefits to this. Discussed benign nature of fibroids however also discussed the small possibility of sarcoma and unable to predict final pathology until resu lted. Patient understands that if there is any malignancy that she may have to undergo a second staging procedure by [facility] oncology. She would like to proceed with scheduling total abdominal hysterectomy with bilateral salpingo-oophorectomy. 6. Reviewed pathology and Ultrasound from [facility] as well as ultroasound and EMB done at [facility]. 7. OR booking shett filled out Medical Decision Making: Problems: Moderate: 1+ chronic illnesses with change Data: Unique test result(s) reviewed: 3+ Risk: High: Decision on elective major surgery w/ risk factors Medical Decision Making Level: 4 - Moderate Mitzi Blanco MD documented in this encounterC[facility]02-20-2024 History of Present illness Narrative* Charleen Lopez RDMS - 12/08/2023 1:45 PM EST Radiology Service Progress Note PATIENT NAME: Alisa Coronel DATE OF SERVICE: December 08, 2023 TIME: 2:20 PM PATIENT IDENTITY VERIFICATION COMPLETED USING TWO (2) IDENTIFIERS: Name and Date of confirmedby patient verbally. FALL SCREENING: Has the patient had 2 falls in the last year or 1 fall with injury or currently using an Ambulatory Assistive Device (Walker, Cane, Wheelchair, Crutches, etc.)? No PATIENT GENDER DATA: Female. status: : No status: NO. PATIENT RELEVANT IMPLANT DATA REVIEWED: Not Applicable PATIENT PRESENTS WITH AN IMPLANTABLE OR ATTACHED STEM PROCESSING MACHINE OPERATOR: No RADIOLOGY DEPARTMENT: Ultrasound PERIPHERAL IV DATA: Not applicable SIGNED BY: Charleen Lopez RDMS [facility] December 08, 2023 2:20 PM documented in this encounterC[facility]02-08-2024 Miscellaneous Notes* Telephone Encounter - Viola Tony RN - 11/26/2023 8:43 AM EST Patient notified. Transferred to [facility] to assist patient with scheduling. Viola Tony RN * Telephone Encounter - Tanisha Andres APRN.ANNE - 11/26/2023 7:36 AM EST Please let the patient know that her EMB shows that the hyperplasia has resolved. Dr. Suh reviewed her results and would like her to repeat an ultrasound and follow-up with herself or DM to discuss further options for the bleeding. documented in this encounterC[facility]11-14-2023 Miscellaneous Notes* Telephone Encounter - Emily Salgado RN - 09/01/2023 4:28 PM EST Patient notified. Emily Salgado RN * Telephone Encounter - Latonya Grant RN - 09/01/2023 2:00 PM EST Left message for patient to return phone call * Telephone Encounter - Tanisha Andres APRN.CNP - 09/01/2023 1:54 PM EST She can increase the 2 pills daily. Tanisha Andres APRN.CNP * Telephone Encounter - Laura Wills LPN - 09/01/2023 12:18 PM EST Pt calling and stated that she was started on Norethindrone on 08/20/23. She had bleeding on the first week of the medication. Bleeding stopped on 08/28/23 until yesterday 08/31/23. She reports she ishaving spotting now that is pink in color with mild cramping. Pt wanting to know how to proceed from this point. Please advise. Laura Wills LPN documented in this encounterC[facility]08-21-2023 Procedure [facility]08-21-2023 History and physical note Author Guzman Bray [facility] June 08, 2023 10:25am Note Date/Time June 08, 2023 10 :25am [facility] Medical Records Department [address] [place] [address] H&P Exam - SALAD MAKER 06/08/23 1023 MR#: [id number] Acct: [id number] Name: ALISA CORONEL Rep #:[id number] : 1970 52 From: Guzman Bray MD PCP: Dr. Abran Baltazar MD Status: [facility] Location: [place] [address] History and Physical Date of Admission: 06/08/23 Chief complaint: Abnormal uterine bleeding History of present illness: 52-year-old with abnormal uterine bleeding elects for hysteroscopy, dilation curettage. No medical changes since last seen. All questions answered and consent signed. Obstetric history: with a history of 2 vaginal deliveries Past medical history: Hypothyroid Medications: Synthroid, Ortho Micronor Allergies: No known drug allergies Past surgical history: None Family history: Denies history DVT or PE Social history: Denies smoking, alcohol use, drug use Review of systems: Besides above pertinent positives a full review of systems was performed and found to be negative Physical exam: Vitals: Blood pressure 135/84 pulse 84 respiratory rate 16 temperature 98.8 ?F SPO2 99% on room air General: Normal-appearing no acute distress HEENT: Normocephalic/atraumatic no cervical lymphadenopathy Cardiac/respiratory: No use accessory muscles, nonlabored breathing Abdomen: Soft, nontender, nondistended Extremities: No peripheral edema normal peripheral pulses Psych: Normal affect and remainder nonpressured speech Labs: Urine test negative Assessment and plan: 52-year-old with abnormal uterine bleeding elects for hysteroscopy, dilation curettage. Patient understands risk of the procedure include but are not limited to visceral or vascular injury, prolonged hospitalization, blood loss need for transfusion, reoperation. Patient state understanding wish to proceed. All questions were answered and consent was signed 06/08/23 1025 <Electronically signed by Guzman Bray MD> Cosigner Signature (if applicable): CC: Dr. Abran Baltazar MD; Dr. Guzman Bray MD~ Signed [facility] Work Phone: 1(308) 676-542203-06-2023 History and physical note Author Dr. Landry [facility] December 22, 2022 8:16am Note Date/Time December 22, 2022 7:09 am [facility] Medical Records Department [address] [place] [address] History & Physical Exam 12/22/22 0709 MR#: [id number] Acct: [id number] Name: ALISA CORONEL Rep #:[id number] : 1970 52 From: Ayesha Landry MD PCP: Dr. Abran Baltazar MD Status: [facility] Location: [place] [address] HPI - General General Date of Admission: 12/22/22 HPI Narrative ALISA CORONEL, is a 52 F who presents for screening colonoscopy. Patient never had previous colonoscopy. Patient denies any family history of colon cancer. Patient has bowel moods daily denies any blood. Patient denies any chronic abdominal pain/nausea/vomiting. Patient occasionally has reflux with tomato sauce products and takes Tums for that. [facility] Medical History (Updated 12/17/22 @ 14:02 by Dayan Kwan) Heartburn Hypothyroid Non-smoker Thyroid disease Wears contact lenses Home Medications levothyroxine 75 mcg capsule 88 mcg PO DAILY 09/08/22 [History Last Taken Unknown] Allergy/AdvReac Type Severity Reaction Status Date / Time No Known Allergies Allergy Verified 12/22/22 07:09 Family History (Updated 09/08/22 @ 11:13 by Shanta Vazquez) Mother Uterine cancer Hypertension Kidney disease Father Hypertension Surgical History (Updated 12/17/22 @ 14:02 by Dayan Kwan) No significant past surgical history Social History (Updated 09/08/22 @ 11:14 by Shanta Vazquez) household members: spouse current occupational status: employed 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 Smoking Status: Never smoker alcohol intake: never Past Medical/Surgical History Planned Operation Planned Operative Procedure/s: COLONOSCOPY Previous Hospitalizations/Surgeries HX Hospitalizations: No Any Problems With Anesthesia: No You/Your Family Experience Fever (Hyperthermia) With Anes: No Cholinesterase deficiency: No Cardiovascular Hx Hypertension: No Respiratory Hx Sleep Apnea: No Hx Respiratory Tract Infection/Cold (presently): No Do You Snore Loudly (louder than talking or can be heard): No Do You Often Feel Tired/ Fatigued/ Sleepy Dring Daytime?: No Has Anyone Observed You Stop Breathing During Sleep?: No Result (for STOP score): Negative Smoking Status: Never smoker Neurological Does patient have nerve stimulator: No Reproduction : No Allergies No Known Allergies Allergy (Verified 12/22/22 07:09) Discharge Is Pt Admitted From a Fpc, or a Prison: No Who Could Help: -TRUPTI After D/C, Where Do you Plan to Go: Return Home Physical Exam Const alert, oriented x3 and no apparent distress HEENT normocephalic and head/scalp atraumatic Resp normal respiratory effort Cardio regular rate GI soft to palpation and non-tender; Negative for non-distended Palpation: Negative for guarding Extremity no clubbing, cyanosis or edema Neuro CN's II-XII intact bilaterally Psych mental status grossly normal Assessment & Plan Assessment/Plan (1) Encounter for screening for malignant neoplasm of colon: Surgery Risks - Colonoscopy Risks Include but are not Limited To: Risks include but are not limited to: Bleeding, perforation requiring further surgery, inability to complete colonoscopy requiring barium enema. 12/22/22 0816 <Electronically signed by Ayesha Landry MD> Cosigner Signature (if applicable): CC: Dr. Abran Baltazar MD; Dr. Ayesha Landry MD~ Signed [facility] Work Phone: Discharge summary Author Guzman Bray [facility] June 08, 2023 12:45pm Note Date/Time June 08, 2023 12 :45pm [facility] Medical Records Department [address] [place] [address] Instructions for Home/Discharge Instructions 06/08/23 1245 MR#: [id number] Acct: [id number] Name: BERNAALISA GUALLPA Rep #:[id number] : 1970 52 From: Guzman Bray MD PCP: Dr. Abran Baltazar MD Status: [facility] Discharge Instructions Diet Discharge Diet: No restrictions Activity Discharge Activity: Return to Normal Activity, May Drive and May Shower May resume sexual activity in: 6-8 weeks Weight Bearing Status: Weight bearing as tolerated Dressing / Incision Call your doctor if your incision/area has: Continuous Slow Oozing and Foul Smelling Discharge Call your doctor if you observe: Fever of 101 or Higher, Shortness of breath andChest pain Follow Up Care Please Follow Up With: Guzman Bray MD When: 2 weeks postoperatively Test Results: Test results from this visit will be discussed in further detail at your follow- up appointment, if applicable. Discharge Plan Admission Attending Provider: Guzman Bray Primary Care Provider: Abran Baltazar Discharge Orders/Prescriptions Prescriptions: No Action levothyroxine 75 mcg capsule 88 mcg PO DAILY norethindrone (contraceptive) 0.35 mg tablet 0.35 mg PO DAILY Patient Comments: TAKE 1 TABLET BY MOUTH EVERY DAY Referrals / Follow Up: Abran Baltazar MD [Primary Care Provider] - Disposition Disposition (needs filled in before D/C Order can be placed): Home, Self Care 06/08/23 6495<Electronically signed by Guzman Bray MD>Guzman Bray MD CC: Dr. Abran Baltazar MD ~ Signed [facility] Work Phone: evKind[employer] noteNo assessment information available [facility] Work Phone: evaluation note* Diagnosis Onset Date Resolution Status Encounter for screening for malignant neoplasm of colo n acute [facility] Work Phone: [employer] note* Diagnosis Abnormal uterine bleeding (AUB)- Primary documented in this encounter [facility] note* Diagnosis Abnormal uterine bleeding (AUB) documented in this encounter [facility] note* Diagnosis Uterine leiomyoma, unspecified location- Primary Endometrial hyperplasia Endometrial hyperplasia, unspecified Abnormal uterine bleeding (AUB) Enlarged uterus Hypertrophy of uterus documented in this encounter [facility] note* Diagnosis Uterine leiomyoma, unspecified location- Primary Abnormal uterine bleeding (AUB) Endometrial hyperplasia Endometrial hyperplasia, unspecified Pre-op exam Preoperative examination, unspecified documented in this encounter [facility] note* Diagnosis Onset Date Resolution Status S/P hysterectomy acute Urethral laceration acute [facility] Work Phone: [employer] note* Diagnosis Post-operative state- Primary Other postprocedural status documented in this encounter [facility] note* Diagnosis Post-operative state- Primary Other postprocedural status documented in this encounter [facility] note* Diagnosis Encounter for gynecological examination (general) (routine) without abnormal findings- Primary Encounter for screening mammogram for breast cancer Special screening examination for human papillomavirus (HPV) Screening for cervical cancer Screening for malignant neoplasm of the cervix [facility] Diagnostic Procedure Only (Routine) - Authorized Specialty Diagnoses / Procedures Referred By Terri t Referred To Contact [facility] Diagnoses Abnormal uterine bleeding (AUB) Procedures US FEMALE PELVIS TRANSVAG US TRANSVAGINAL Tanisha Andres APRN.CNP [address] [place] [address] [place] [address] Referral ID Status Reason Start Date Expiration Date Visits Requested Visits Authorized [id number] Authorized Auto-Generat ed Referral 11/26/2023 12/25/2024 1 1 [facility] Chief Complaint and Reason for Visit Chief Complaint EORDER Chief Complaint Amb Documentation SCREENING Chief Complaint Amb Documentation SCREENING EORDER Reason for Visit Encounter for screen ing for malignant neoplasm of colon Chief Complaint HYSTEROSCOPY D&C Chief Complaint HYSTEROSCOPY D&C SCREENING Chief Complaint SCREENING EORDER Chief Complaint EORDER PREOP ERAS, Hysterectomy,ALICE, bilateral salpingo-oophore Reason for Visit S/P hysterectomy Urethral laceration Family History Relationship Condition Age at Onset Recorded Date/T haley mother Malignant neoplasm of uterus Unknown Hypertension Unknown Kidney disorder Unknown father Hypertension Unknown Advance Directives Advance Directive Response Recorded Date/ Time Name of Medical Power of Operations Forester December 17, 2022 2:02pm Living Will Yes December 17, 2022 2:02pm Power of Operations Forester Yes December 17 3 2:02pm Advance Directive Response Recorded Date/ Time Living Will Yes December 17, 2022 3:02pm Power of Operations Forester Yes December 17 3 3:02pm Advance Directive Response Recorded Date/ Time Living Will Yes June 02 3 4:31pm Power of Operations Forester Yes June 02 023 4:31pm Name of Medical Power of Operations Forester JULIETTEA JASPER CORONEL June 02, 2023 4:31pm Advance Directive Response Recorded Date/ Time Living Will Yes June 02 3 3:31pm Power of Operations Forester Yes June 02 023 3:31pm Name of Medical Power of Operations Forester MARLENY JASPER CORONEL June 02, 2023 3:31pm Advance Directive Response Recorded Date/ Time Living Will Yes June 02 3 3:31pm Power of Operations Forester Yes June 02 2 023 3:31pm Advance Directive Response Recorded Date/ Time Name of Medical Power of Operations Forester Trupti Coronel February 11, 2024 4:00pm Living Will Yes February 11, 2024 4:00pm Power of Operations Forester Yes February 10 4:00pm Summary Purpose Additional Source Comments Goals (unrecognized section and content) Goals may be documented in a n alternate sectionGoals may be documented in an alternate sectionGoals may be documented in an alternate sectionGoals may be documented in an alternate section Care Teams (unrecognized sec tion and content) Team Status: Active Member Role Status Dates Dr. Abran Baltazar MD Primary Care Provider Activ e Team Status: Inactive Member Role Status Dates Dr. Abran Baltazar MD Primary Care Provider, Attending Provider, Referring Provider Active Team Status: Active Member Role Status Dates Dr. Abran Baltazar MD Primary Care Provider Activ e Shanta Vazquez Attending Provider Active Team Status: Active Member Role Status Dates Dr. Abran Baltazar MD Primary Care Provider, Refe rring Provider Active Dr. Ayesha Landry MD Attending Provider, Other Pro vider Active Team Status: Inactive Member Role Status Dates Dr. Abran Baltazar MD Primary Care Provider, Atte nding Provider Active Team Status: Inactive Member Role Status Dates Dr. Abran Baltazar MD Primary Care Provider, Refe rring Provider Active Dr. Ayesha Landry MD Attending Provider Active Team Status: Inactive Member Role Status Dates Dr. Abran Baltazar MD Primary Care Provider Activ e Dr. Guzman Bray MD Attending Provider, Referring Pr ovider Active Team Status: Active Member Role Status Dates Dr. Clive Baltazar MD Primary Care Provider Acti ve Team Status: Active Member Role Status Dates Dr. Clive Baltaazr MD Primary Care Provider Acti ve Dr. Chandra Hankins MD Attending Provider Active Dr. Mitzi Greenfield MD Referring Provider Active Team Status: Inactive Member Role Status Dates Dr. Clive Baltazar MD Primary Care Provider, Attending Provider, Referring Provider Active Team Status: Inactive Member Role Status Dates Dr. Clive Baltazar MD Primary Care Provider Acti ve Dr. Mitzi Greenfield MD Admit Provider, Attending Provider, Referring Provider Active Source Comments (unrecognize d section and content) In the event this informatio n is protected by the Federal Confidentiality of Alcohol and Drug Abuse Patient Records regulations: The Federal rules restrict any use of the information to criminally investigate or prosecute any alcohol or drug abuse patient.[facility] CenterIn the event this information is protected by the Federal Confidentiality of Alcohol and Drug Abuse Patient Records regulations: The Federal rules restrict any use of the information to criminally investigate or prosecute any alcohol or drug abuse patient.[facility] CenterIn the event this information is protected by the Federal Confidentiality of Alcohol and Drug Abuse Patient Records regulations: The Federal rules restrict any use of the information to criminally investigate or prosecute any alcohol or drug abuse patient.[facility] CenterIn the event this information is protected by the Federal Confidentiality of Alcohol and Drug Abuse Patient Records regulations: The Federal rules restrict any use of the information to criminally investigate or prosecute any alcohol or drug abuse patient.[facility] CenterIn the event this information is protected by the Federal Confidentiality of Alcohol and Drug Abuse Patient Records regulations: The Federal rules restrict any use of the information to criminally investigate or prosecute any alcohol or drug abuse patient.[facility] CenterIn the event this information is protected by the Federal Confidentiality of Alcohol and Drug Abuse Patient Records regulations: The Federal rules restrict any use of the information to criminally investigate or prosecute any alcohol or drug abuse patient.[facility] CenterIn the event this information is protected by the Federal Confidentiality of Alcohol and Drug Abuse Patient Records regulations: The Federal rules restrict any use of the information to criminally investigate or prosecute any alcohol or drug abuse patient.[facility] CenterIn the event this information is protected by the Federal Confidentiality of Alcohol and Drug Abuse Patient Records regulations: The Federal rules restrict any use of the information to criminally investigate or prosecute any alcohol or drug abuse patient.[facility] CenterIn the event this information is protected by the Federal Confidentiality of Alcohol and Drug Abuse Patient Records regulations: The Federal rules restrict any use of the information to criminally investigate or prosecute any alcohol or drug abuse patient.[facility] CenterIn the event this information is protected by the Federal Confidentiality of Alcohol and Drug Abuse Patient Records regulations: The Federal rules restrict any use of the information to criminally investigate or prosecute any alcohol or drug abuse patient.[facility] CenterIn the event this information is protected by the Federal Confidentiality of Alcohol and Drug Abuse Patient Records regulations: The Federal rules restrict any use of the information to criminally investigate or prosecute any alcohol or drug abuse patient.[facility] CenterIn the event this information is protected by the Federal Confidentiality of Alcohol and Drug Abuse Patient Records regulations: The Federal rules restrict any use of the information to criminally investigate or prosecute any alcohol or drug abuse patient.[facility] CenterIn the event this information is protected by the Federal Confidentiality of Alcohol and Drug Abuse Patient Records regulations: The Federal rules restrict any use of the information to criminally investigate or prosecute any alcohol or drug abuse patient.[facility] Reason for Visit (unrecogniz ed section and content) Reason Comments Patient Question Reason Comments Results Reason Comments Radiology US Specialty Diagnoses / Procedures Referred By Terri myers Referred To Contact US IMAGING Diagnoses Abnormal uterine bleeding (AUB) Procedures US FEMALE PELVIS TRANSVAG US TRANSVAGINAL Tanisha Andres APRN.RN ADVICE [address] [place] [address] [place] [address] Referral ID Status Reason Start Date Expiration Date V isits Requested Visits Authorized [id number] Closed Auto-Generate d Referral 11/26/2023 12/25/2024 1 1 Reason Comments Discussion Discuss US results Reason Comments Pre-Op Visit Reason Comments Post Op Reason Comments Results Reason Onset Date Comments Post-Op Visit 02/26/2024 Reason Onset Date Comments Post-Op Visit 03/25/2024 Reason Comments Patient Update Reason Comments Yearly Exam INFORMATION SOURCE (unrecogn ized section and content) DATE CREATED AUTHOR [facility] AUTHOR'S PILI ATDANILO 02/07/2025 [facility] FOR RECORDS PERTAINING TO PATIENTS WHO ARE [...] BE BASED ON THE PRIMARY CLINICAL RECORDS. [facility] [employer] [facility]. provides no warranty or guarantee of the accuracy or completeness of information in this document.
== END | disposition home or self-care (01) ==
LOC: MTLAB 08:42
PROVIDERS: PCP Family Medicine; Referring Provider Family Medicine; Visit Provider Family Medicine
DX: E03.9 Hypothyroidism, unspecified (principal); Z13.220 Encounter for screening for lipoid disorders
CPT/HCPCS: 36415; 80061; 82306; 84439; 84443

== ENCOUNTER → 2025-09-19 | Outpatient (CLI) | payer BC, SELFPAY ==
--- NOTE | 2025-09-19 08:24 | BI_ITS ---
EXAM: SCRN MAMM (CAD)W/JENA BILAT DATE: 09/19/2025 CLINICAL HISTORY: F, Age 54 y/o , SCREENING No family history. TECHNIQUE: Procedure Code: [id number] Modality: MG Procedure: SCRN MAMM (CAD)W/JENA BILAT COMPARISON: Prior exam(s) dated September 13, 2024.. FINDINGS: TISSUE DENSITY: The breasts are heterogeneously dense, which may obscure small masses. Bilateral Breast Mammographic Findings: No significant masses, calcifications or other abnormalities are identified. Stable small bilateral axillary lymph nodes. No suspicious masses, areas of developing architectural distortion, or suspicious calcifications. There has been no significant interval change. BI/SCRN MAMM (CAD)W/JENA BILAT IMPRESSION: Stable bilateral screening mammogram. OVERALL FINAL ASSESSMENT BI-RADS 2: BENIGN RECOMMENDATION: Routine annual follow-up in 1 Year Additional Recommendation none A letter with findings and recommendations will be mailed to the patient. Reading Location: [place]
== END | disposition home or self-care (01) ==
LOC: OPBI 08:23
PROVIDERS: PCP Family Medicine; Referring Provider Obstetrics & Gynecology; Visit Provider Obstetrics & Gynecology
DX: Z12.31 Encounter for screening mammogram for malignant neoplasm of breast (principal)
CPT/HCPCS: 77063; 77067